=== PATIENT | female | born 1940 | race Caucasian/White ===

== ENCOUNTER 2017-09-17 10:33 | Emergency (ER) | payer MEDICARE ==
[2017-09-17 11:13] LABS: #Eosinphils 0.1 thou/uL (0.0-0.7); #Lymphocytes 2.6 thou/uL (1.20-3.40); #Monocytes 0.5 thou/uL (0.11-0.59); #Neutrophils 5.7 thou/uL (1.40-6.50); %Basophils 0.2 % (0.0-1.0); %Eosinophils 0.6 % (0.0-10.0); %Lymphocytes 29.6 % (21.0-51.0); %Monocytes 5.3 % (0.0-10.0); Red Blood Cell (RBC) Count 3.46 mill/uL (4.20-5.40); White Blood Cell (WBC) Count 8.8 thou/uL (4.8-10.8)
[2017-09-17 11:43] LABS: ALT (SGPT) 12 U/L (8-55); AST (SGOT) 23 U/L (5-34); Alkaline Phosphatase 121 U/L (40-150); Anion Gap 14 mmol/L (10-20); BUN (Urea Nitrogen) 8 mg/dL (9.8-20.1); Bilirubin, Total 0.5 mg/dL (0.2-1.2); Calc. Creatinine Clearance 0 mL/min (70-130); Calcium 8.8 mg/dL (7.8-10.44); Carbon Dioxide 23 mmol/L (23-31); Chloride 108 mmol/L (98-107); Estimated GFR-MDRD 64; Globulin 3.2 g/dL (2.4-3.5); Protein, Total 6.7 g/dL (6.0-8.3)
[2017-09-17] MEDS ORDERED: Carvedilol 6.25 MG TAB PO SCH (12:00)
--- NOTE | 2017-09-17 12:17 | CT ---
CT BRAIN WITHOUT CONTRAST: HISTORY: Headache. Hypertensive urgency. Hypokalemia. FINDINGS: No evidence of acute infarct, hemorrhage, midline shift, or abnormal extraaxial fluid collections is seen. The ventricular size is appropriate, and the basilar cisterns are patent. The bony calvariu m is intact. IMPRESSION: No CT evidence of acute intracranial process. POS: [facility]
[2017-09-17] MEDS ORDERED: Potassium Chloride 20 MEQ TAB ONE (13:13)
--- NOTE | 2017-10-16 12:17 | EKG ---
Test Reason : Blood Pressure : / mmHG Vent. Rate : 065 BPM Atrial Rate : 065 BPM P-R Int : 118 ms QRS Dur : 076 ms QT Int : 454 ms P-R-T Axes : -19 034 044 degrees QTc Int : 472 ms Normal sinus rhythm Prolonged QT Abnormal ECG Confirmed by GRICELDA ALONSO, CARY Coleman ([id number]), script editor NICOLE DAMON ([id number]) on 10/16/2017 12:17:02 PM Referred By: Confirmed By:CARY MADISON MD
== END 2017-09-17 13:35 | disposition home or self-care (01) ==
LOC: ERS 10:33
DX: E87.6 Hypokalemia (principal); E03.9 Hypothyroidism, unspecified; E78.5 Hyperlipidemia, unspecified; I10 Essential (primary) hypertension; I48.91 Unspecified atrial fibrillation; M10.9 Gout, unspecified
CPT/HCPCS: 70450; 80053; 85025; 93005

== ENCOUNTER 2017-11-26 11:19 | Inpatient (IN) | payer MEDICARE ==
[2017-11-26 11:46] LABS: #Eosinphils 0.1 thou/uL (0.0-0.7); #Lymphocytes 1.6 thou/uL (1.20-3.40); #Monocytes 0.3 thou/uL (0.11-0.59); %Basophils 0.5 % (0.0-1.0); %Eosinophils 1.2 % (0.0-10.0); %Lymphocytes 19.7 % (21.0-51.0); %Monocytes 4.2 % (0.0-10.0); %Neutrophils 74.5 % (42.0-75.0); Mean Corpuscular HGB CONC 32.2 g/dL (32.0-36.0); Mean Corpuscular Hemoglobin 31.3 pg (27.0-31.0); Mean Corpuscular Volume 97.2 fl (81.0-99.0); Mean Platelet Volume 8.7 fL (7.4-10.4); Platelet Count 174 thou/uL (130-400); RBC Distribution Width 13.9 % (11.5-14.5); Red Blood Cell (RBC) Count 3.19 mill/uL (4.20-5.40); White Blood Cell (WBC) Count 8.1 thou/uL (4.8-10.8)
--- NOTE | 2017-11-26 12:09 | RAD ---
SINGLE VIEW OF CHEST: Date: 11/26/17 COMPARISON: 12/19/16. HISTORY: Shortness of breath and chest pain. FINDINGS: Three views of the chest show a cardiomediastinal silhouette which is upper limits of normal in size with atherosclerotic calcifications in the aorta. There is no evidence of consolidation, mass, or ple ural effusion. Surgical clips are seen in the upper abdomen. IMPRESSION: No evidence of acute cardiopulmonary disease. POS: [facility]
[2017-11-26 12:13] LABS: ALT (SGPT) 17 U/L (8-55); AST (SGOT) 35 U/L (5-34); Albumin 3.6 g/dL (3.4-4.8); Alkaline Phosphatase 129 U/L (40-150); Anion Gap 14 mmol/L (10-20); BUN (Urea Nitrogen) 13 mg/dL (9.8-20.1); Bilirubin, Total 1.2 mg/dL (0.2-1.2); CK (CPK) 604 U/L (29-168); Calc. Creatinine Clearance 0 mL/min (70-130); Calcium 8.8 mg/dL (7.8-10.44); Carbon Dioxide 21 mmol/L (23-31); Chloride 108 mmol/L (98-107); Estimated GFR-MDRD 68; Globulin 3.1 g/dL (2.4-3.5); Glucose 96 mg/dL (83-110); Lipase 11 U/L (8-78); Potassium 3.3 mmol/L (3.5-5.1); Protein, Total 6.7 g/dL (6.0-8.3); Sodium 140 mmol/L (136-145)
[2017-11-26 12:18] LABS: Troponin I 0.021 ng/mL (< 0.028)
[2017-11-26 12:22] LABS: CKMB 7.6 ng/mL (0-6.6)
--- NOTE | 2017-11-26 13:17 | ULT ---
RIGHT LOWER EXTREMITY VENOUS DOPPLER WITH SPECTRAL ANALYSIS AND COLOR FLOW EVALUATION: Date: 11/26/18 HISTORY: Edema bilateral lower extremities, greater on the right, with associated calf tenderness in right low er extremity. TECHNIQUE: Deal scale, color flow, Doppler evaluation, and spectral analysis of the right lower extremity venous structures is performed with 2D imaging. The right lower extremity common femoral, superficial femor al, popliteal, and posterior tibial veins are imaged. FINDINGS: There is normal lumen compressibility, flow, and augmentation in the visualized deep venous structure s of the right lower extremity. IMPRESSION: No evidence of a deep venous thrombosis involving the visualized deep venous structures of the right lower extremity. POS: [facility]
--- NOTE | 2017-11-26 13:27 | CT ---
CT ARTERIOGRAM CHEST WITH IV CONTRAST AND 3D MIP IMAGING CT ABDOMEN AND PELVIS WITH IV AND ORAL CONTRAST: Date: 11/26/17 HISTORY: Dyspnea. Chest pain. Abdomen pain. FINDINGS: There is good contrast opacification of the pulmonary arteries and thoracic aorta with normal branchi ng of the great vessels. A small amount of bilateral pleural fluid present. Patchy areas of mild infi ltrate are present throughout each lung, more pronounced at the posterior aspect of each lung, sugges ting dependent atelectasis. Reactive appearing lymph nodes are scattered about the mediastinum. Calcified granulomata within the solid organs are consistent with healed granulomatous disease. Posto perative changes of the stomach are present, including absence of most or all of the stomach. There i s prominent calcification throughout the arterial structures. Postoperative changes of the anterior a bdominal wall are present within an anterior midline supraumbilical hernia containing abdominal fat a nd a small amount of colon. Degenerative and postoperative changes of the lumbar spine are apparent. Urinary bladder is unremarkable. There is no evidence of bowel obstruction. IMPRESSION: 1. No CT evidence of pulmonary embolus. 2. Small bilateral pleural effusions with dependent bibasilar atelectasis. 3. Anterior midline abdominal wall hernia containing abdominal fat and a small amount of nonobstruct ed colon. 4. Postoperative changes of the abdomen and pelvis. 5. Atherosclerosis. POS: [facility]
[2017-11-26] MEDS ORDERED: Furosemide 20 MG/2 ML VIAL ONE (14:31)
[2017-11-26] MEDS ORDERED: Acetaminophen 325 MG TAB PO PRN ×2 (15:54→18:23)
[2017-11-26] MEDS ORDERED: hydrALAZINE 20 MG/ML VIAL SLOW IVP PRN (16:15)
[2017-11-26] MEDS ORDERED: ISOVUE-370 76%-LOCM 1 ML ONE (16:41)
[2017-11-26] MEDS ORDERED: Ondansetron ODT 4 MG TAB PO PRN (18:23)
[2017-11-26 19:14] LABS: Troponin I 0.032 ng/mL (< 0.028)
[2017-11-26 19:16] LABS: CKMB 6.7 ng/mL (0-6.6); Critical Call CKMBM RESULT DECREASING
--- NOTE | 2017-11-26 20:17 | HP-2 ---
CODE STATUS: FULL. PRIMARY CARE PHYSICIAN: Katerina Velazco DO, [facility]. ATTENDING PHYSICIAN: Ines Lawrence DO RESIDENT: Avinash Carmen MD CHIEF COMPLAINT: Shortness of breath. HISTORY OF PRESENT ILLNESS: This is a 77-year-old female who presents with a 4- day history of shortness of breath. She states she has not been able to walk as far as she usually does. She was normally able to walk around her house with no problems, but now she sees herself sitting down a lot more often. She also notes she is waking up at night, often lying flat with a choking sensation. She also noted leg swelling and swelling in her abdomen that is new for her. She denies any chest pain or recent illness. She does note that she was taken off a water pill about 2 weeks ago. She has no nausea, vomiting, or diarrhea. No fevers, no chills, no coughs. She also denies any palpitations, but she does admit to some longstanding unsteadiness on her feet with recurrent falls. She has no other complaints at this time. In the ER, she was given 20 mg of IV Lasix. PAST MEDICAL HISTORY: CAD, CHF, AFib, gout, hypothyroidism, hyperlipidemia, hypertension, and alopecia. PAST SURGICAL HISTORY: Cholecystectomy, hysterectomy, feeding tube placement, and a bladder lift. ALLERGIES: No known drug allergies. MEDICATIONS: Include, 1. Levothyroxine 100 mcg. 2. Multaq 400 mg orally b.i.d. 3. Cetirizine 10 mg. 4. Pantoprazole 40 mg. 5. Sertraline 100 mg. 6. Allopurinol 300 mg. 7. Nitroglycerin 0.4 mg sublingual. 8. Trazodone 100 mg at bedtime. 9. Minoxidil for women 2% external solution. 10. Amlodipine besylate 5 mg orally. 11. Atorvastatin 20 mg. 12. Shell Low Dose aspirin 81 mg. 13. Naproxen 500 mg p.o. daily. FAMILY HISTORY: Noncontributory. SOCIAL HISTORY: No tobacco, alcohol, or drug use. REVIEW OF SYSTEMS: General: Denies any fevers, chills, weight changes, night sweats, or fatigue. Eyes. She does admit to blurry vision. No eye pain. ENT : Denies any nasal congestion, rhinorrhea, sore throat. Respiratory: No cough , no congestion. She does admit to shortness of breath. Cardiovascular: Denies any chest pain or palpitation. She does admit to edema and orthopnea. Gastrointestinal: She denies nausea, vomiting, diarrhea, constipation. She does admit to abdominal pressure like pain from being full. Genitourinary: Denies any incontinence or dysuria. Skin: Denies any rashes or lesions, but she does admit to more bruising than normal. Musculoskeletal: Denies pain, tenderness, stiffness, swelling. Neurologic: She admits to weakness and recurrent falls as longstanding. Psychiatric: She denies anxiety or depression. PHYSICAL EXAMINATION: VITAL SIGNS: Blood pressure 167/60, pulse 53, respirations 18, temperature max 98.3, pulse ox 95% on 2 liters. Current weight is 72 kg. GENERAL: Alert and oriented x4. Appropriately interactive. EYES: PERRLA. Conjunctivae within normal limits. ENT: Tympanic membranes pearly [place] without bulging or erythema. Nasal mucosa and oropharynx within normal limits. The patient does wear dentures. NECK: Supple. No lymphadenopathy, no thyromegaly. CARDIOVASCULAR: Regular rate and rhythm. No murmurs. Radial and pedal pulses are equal bilaterally. RESPIRATORY: Normal effort. No retractions. She did have crackles at bilateral lung bases. SKIN: Warm and dry. No cyanosis. No lesions. ABDOMEN: Soft. She was tender to palpation with a pressure-like sensation, but no sharp or acute pains. Bowel sounds are present x4 and she does admit to some distention of her abdomen. EXTREMITIES: No clubbing, cyanosis. She does have pitting edema up to the level of her shins. MUSCULOSKELETAL: Structure, tone, muscle strength, and range of motion within normal limits. NEUROLOGIC: No focal neurologic deficits. Sensation was within normal limits. Cranial nerves II-XII grossly intact. GCS was 15. PSYCHIATRIC: Appropriate. LABORATORY DATA: She had a white blood cell count of 8.1, platelet count of 174 , hemoglobin 10, hematocrit 31, MCV was 97.2, neutrophils 74.5%. CK was 604, CK -MB 7.6. Troponin I was 0.021. Sodium was 140, potassium 3.3, chloride 108, bicarbonate 21, BUN 13, creatinine 0.82, glucose 96, calcium was 8.8, total protein 6.7, albumin 3.6, total bilirubin was 1.2, AST was 35, ALT 17, alkaline phosphatase 129. Had a lipase of 11. BNP was 383. D-dimer was 1.22. She had an EKG that showed normal sinus rhythm with nonspecific T-wave abnormality. Chest x-ray showed nothing acute. She had a right lower extremity Doppler that showed no DVT. She had a CTA that showed no pulmonary embolism, small bilateral effusions, and an anterior midline abdominal hernia. ASSESSMENT AND PLAN: We have a 77-year-old female with: 1. Acute congestive heart failure exacerbation. We will give her IV Lasix. Strict I's and O's. Her last echo was in 12/2016, which showed an EF of 45%-50% , so we are going to repeat that. We will get a TSH and we will give her O2 supplementation as needed. 2. Acute Hypoxic Respiratory Failure- Secondary to #1. New O2 requirement. Will keep saturations above 90% with supplementation. 3. Atrial fibrillation. We will continue her home meds, put her on tele monitoring. 4. Hypertension. We will continue amlodipine and give her hydralazine as needed for systolic blood pressure greater than 170. 5. Hyperlipidemia. Continue her statin. 6. Gout. Continue allopurinol. 7. Hypothyroidism. We will check a TSH. Continue levothyroxine. 8. Prophylaxis will be Lovenox. DISPOSITION AND LENGTH OF HOSPITAL STAY: Tele and 2. Symptomatic medications will be provided. History and physical exam as well as management has been discussed with Dr. Lawrence. JEREMIAH
[2017-11-26] MEDS ORDERED: Melatonin 3 MG TAB PO SCH (21:00)
[2017-11-26] MEDS ORDERED: traZODone HCl 50 MG TAB PO SCH (21:00)
[2017-11-26] MEDS ORDERED: Loratadine 10 MG TAB PO PRN (21:11)
[2017-11-26] MEDS ORDERED: Nitroglycerin 0.4 MG TAB (25 Tab Bottle) SL PRN (21:11)
[2017-11-26] MEDS ORDERED: Naproxen 500 MG TAB PO PRN (21:11)
[2017-11-27] MEDS ORDERED: Levothyroxine Sodium 100 MCG TAB PO SCH (06:00)
[2017-11-27] MEDS: Furosemide 20 MG/2 ML VIAL SLOW IVP SCH ×2 (06:16→14:40)
[2017-11-27 06:18] LABS: Anion Gap 9 mmol/L (10-20); BUN (Urea Nitrogen) 12 mg/dL (9.8-20.1); Calc. Creatinine Clearance 66 mL/min (70-130); Calcium 8.3 mg/dL (7.8-10.44); Carbon Dioxide 26 mmol/L (23-31); Chloride 108 mmol/L (98-107); Estimated GFR-MDRD 70; Glucose 80 mg/dL (83-110); Potassium 3.1 mmol/L (3.5-5.1); Sodium 140 mmol/L (136-145)
--- NOTE | 2017-11-27 07:42 | PDOC.FM ---
- Subjective Subjective: Pt reports her sob has improved since yesterday and she was able to sleep well. Per nurse, pause on tele strip of 1.6 seconds overnight, pt asymptomatic. Otherwise denies NVDC, fever, chills. - Objective Vital Signs & Weight: Vital Signs (12 hours) Temp Pulse Resp BP BP Pulse Ox 11/27/17 04:00 97.9 F 58 L 18 142/64 H 95 11/27/17 00:00 98.1 F 67 18 166/74 H 96 11/26/17 20:00 98.3 F 66 18 159/70 H 94 L Weight Weight 68.492 kg I&O: 11/26/17 11/27/17 11/28/17 06:59 06:59 06:59 Intake Total 360 Output Total 1300 Balance -940 Result Diagrams: 11/26/17 11:37 11/27/17 05:26 Phys Exam - Physical Examination Constitutional: NAD HEENT: PERRLA, sclera anicteric Neck: no nodes, no JVD Respiratory: no wheezing, no rales, no rhonchi, clear to auscultation bilateral Cardiovascular: RRR, no significant murmur, no rub Gastrointestinal: soft, non-tender, positive bowel sounds Musculoskeletal: no edema, pulses present Neurological: non-focal, moves all 4 limbs Skin: no rash Dx/Plan (1) Hypokalemia Code(s): E87.6 - HYPOKALEMIA Status: Acute (2) Acute on chronic diastolic heart failure Code(s): I50.33 - ACUTE ON CHRONIC DIASTOLIC (CONGESTIVE) HEART FAILURE Status : Acute (3) HTN, goal below 140/90 Code(s): I10 - ESSENTIAL (PRIMARY) HYPERTENSION Status: Acute (4) Hypothyroidism (acquired) Code(s): E03.9 - HYPOTHYROIDISM, UNSPECIFIED Status: Chronic - Plan Plan: Pt improving with diuresis, will continue. Pt kidney function intact, daily BMP , will monitor Pt decreased weight, per nurse, Is/Os -950, continue to diurese, daily weights, monitor Is/Os Wean O2 maintain sats >90% HTN not at goal, diurese, monitor, consider increase htn meds if no improvement throughout day TSH below normal, consider OP med adjustment
[2017-11-27] MEDS ORDERED: Ferrous Sulfate 325 MG TAB PO SCH (08:00)
[2017-11-27] MEDS ORDERED: Potassium Chloride 20 MEQ TAB PO SCH (08:00)
[2017-11-27] MEDS ORDERED: Dronedarone HCl 400 MG TAB PO SCH (08:00)
[2017-11-27 08:21] VITALS: BMI 25.9
[2017-11-27] MEDS ORDERED: Amlodipine 5 MG TAB PO SCH (09:00)
[2017-11-27] MEDS ORDERED: Multivitamin W/ Minerals 1 TAB PO SCH (09:00)
[2017-11-27] MEDS ORDERED: Lisinopril 2.5 MG TAB PO SCH (09:00)
[2017-11-27] MEDS ORDERED: Enoxaparin Sodium 40 MG/0.4 ML SYRINGE SC SCH (09:00)
[2017-11-27] MEDS ORDERED: Allopurinol 300 MG TAB PO SCH (09:00)
[2017-11-27 09:38] LABS: CKMB 4.4 ng/mL (0-6.6); Troponin I 0.021 ng/mL (< 0.028)
[2017-11-27 12:04] VITALS: BP 124/62; TEMP 98.1
--- NOTE | 2017-11-27 19:39 | ADD-PRG ---
DATE OF SERVICE: 11/27/2017 Please see the note done by Dr. Wooten with which I concur. The patient was seen, evaluated, examine d and discussed with the residents at bedside. The 77-year-old was admitted for CHF exacerbation. H e was volume overloaded and is now on low dose Lasix .
[2017-11-27] MEDS ORDERED: Atorvastatin Calcium 20 MG TAB PO SCH (21:00)
--- NOTE | 2017-11-29 12:14 | DIS-2 ---
LOCATION: [facility] in [place], [place]. DATE OF ADMISSION: 11/26/2017 DATE OF DISCHARGE: 11/27/2017 RESIDENT PHYSICIAN: Dr. Selvin Wooten. ADMITTING ATTENDING: Dr. Angel Rice. DISCHARGE ATTENDING: Dr. Angel Rice. CONSULTATIONS: None. PROCEDURES: 1. Chest x-ray done on 11/26/2017 showed no evidence of acute cardiopulmonary disease. 2. CTA chest, abdomen, and pelvis done on 11/26/2017 showed no evidence of pulmonary embolism. Smal l bilateral pleural effusions with dependent bibasilar atelectasis. Anterior midline abdominal wall hernia containing abdominal fat and small amount of nonobstructed colon. Postoperative changes of th e abdomen and pelvis and atherosclerosis. 3. Vascular ultrasound done on 11/26/2017 showed no evidence of DVT involving the visualized deep ve nous structures of the right lower extremity. 4. Echocardiogram done on 11/26/2017 showed ejection fraction of 50-55%, grade 2/3 diastolic dysfunc tion, moderately dilated left atrium, mitral annular calcification, mild mitral regurgitation, mild t ricuspid regurgitation and elevated pulmonary artery pressure and mild pulmonic regurgitation. PRIMARY DIAGNOSES: 1. Acute on chronic diastolic heart failure. 2. Atrial fibrillation. 3. Hypothyroidism. 4. Depression. 5. Acute kidney injury. 6. Pulmonary hypertension. 7. Electrolyte abnormalities. DISCHARGE MEDICATIONS: 1. Allopurinol 300 mg p.o. daily. 2. Amlodipine 5 mg daily. 3. Aspirin 81 mg daily. 4. Atorvastatin 20 mg p.o. at bedtime. 5. Cetirizine 10 mg p.o. p.r.n. 6. Multaq 400 mg p.o. b.i.d. with meals. 7. Ferrous sulfate 65 mg p.o. daily. 8. Levothyroxine 100 mcg p.o. daily. 9. Lisinopril 2.5 mg p.o. daily. 10. Melatonin 3 mg p.o. at bedtime. 11. Multivitamin 1 tab p.o. daily. 12. Naproxen 500 mg p.o. b.i.d. 13. Nitroglycerin 0.4 mg sublingual every 5 minutes p.r.n. 14. Protonix 40 mg p.o. daily. 15. Potassium chloride 20 mEq p.o. daily. 16. Sertraline 100 mg p.o. daily. 17. Trazodone 100 mg p.o. at bedtime. DISCONTINUED MEDICATIONS: None. HISTORY OF PRESENT ILLNESS AND HOSPITAL COURSE: The patient is a 77-year-old female with past histor y of diastolic heart failure who came in with a 4-day history of shortness of breath and increasing s hortness of breath with exertion. She also noticed that she is frequently waking up at night and has associated orthopnea or had associated orthopnea prior to her presentation to the ER. On initial en counter, patient denied chest pain. She does note that she was taken off of her Lasix approximately 2 weeks prior to admission. Denied nausea, vomiting, diarrhea, fever, chills, and cough as well as p alpitations. Although, the patient has a history of intermittent atrial fibrillation. Patient was d etermined to be a poor candidate for anticoagulation, hence where she was not discharged on anticoagu lation. PERTINENT LABORATORY DATA: Patient's blood pressure on admission was 192/77. The patient was afebri le throughout her hospital stay and initially presented with an oxygen saturation of 80 which improve d with the use of Lasix. Initial O2 sat of 80% improved to 95% on room air upon discharge. Laborato ry elias, patient had no elevated white count; on initial presentation, white count was 8.1. Patient was slightly anemic with hemoglobin of 10, hematocrit of 31.0, and an MCV of 97.2. Basic metabolic p ann revealed hypokalemia at 3.1. GFR was estimated at 70 and BUN and creatinine were 12 and 0.8 res pectively. Initial CK-MB was 7.6, which subsequently trended down to 6.7. Troponin I was 0.021, 0.0 32 and 0.021 at 0000, 0300 and 0600 hours respectively. Brain natriuretic peptide on initial present ation was found to be 383.8. Patient's TSH was also noted to be low at 0.304. Lipase was normal at 11. Overall, patient had an uncomplicated hospital course that was started back on her p.o. Lasix with im provement of her respiratory status as well as her overall volume status. Given the patient was star matthew back on Lasix, she was also continued and sent home on potassium supplementation with instruction to follow up outpatient closely with a repeat basic metabolic panel in 7-10 days with her primary ca re physician. DISCHARGE INSTRUCTIONS: 1. Patient left the hospital in stable condition. 2. Location: Home. 3. Diet: Fluid-restrictive diet, less than 2 liters per day, low-sodium diet less than 2 grams per day and heart-healthy diet. 4. Followup: With [facility] on 12/13/2017 and follow up with Dr. Juan baker at [facility] in 7-10 days following discharge.
== END 2017-11-27 15:15 | disposition home or self-care (01) | DRG 291 ==
LOC: ERS 11:19 → 2NO 13:30
PROVIDERS: ADMIT Family Medicine; ATTEND Family Medicine
DX: I11.0 Hypertensive heart disease with heart failure (principal); J96.01 Acute respiratory failure with hypoxia; I48.91 Unspecified atrial fibrillation; I50.23 Acute on chronic systolic (congestive) heart failure; I25.10 Atherosclerotic heart disease of native coronary artery without angina pectoris; M10.9 Gout, unspecified; E03.9 Hypothyroidism, unspecified; E78.5 Hyperlipidemia, unspecified; I10 Essential (primary) hypertension; F32.9 Major depressive disorder, single episode, unspecified; E87.6 Hypokalemia
CPT/HCPCS: 36415; 71045; 71275; 74177; 80048; 80053; 82553; 83690; 83880; 84443; 84484; 85025; 85379; 93005; 93306; 93798; 96374; J1650; J1940

== ENCOUNTER 2018-04-28 05:55 | Day surgery (SDC) | payer MEDICARE ==
[2018-04-27 14:49] VITALS: BMI 24.7
[2018-04-28 07:52] LABS: #Eosinphils 0.1 thou/uL (0.0-0.7); #Lymphocytes 2.7 thou/uL (1.20-3.40); #Monocytes 0.5 thou/uL (0.11-0.59); #Neutrophils 6.4 thou/uL (1.40-6.50); %Basophils 0.3 % (0.0-1.0); %Eosinophils 1.2 % (0.0-10.0); %Lymphocytes 27.8 % (21.0-51.0); %Monocytes 4.8 % (0.0-10.0); Hemoglobin 11.8 g/dL (12.0-16.0); Mean Corpuscular HGB CONC 33.6 g/dL (32.0-36.0); Mean Corpuscular Hemoglobin 32.5 pg (27.0-31.0); Mean Corpuscular Volume 96.7 fL (78.0-98.0); Platelet Count 166 thou/uL (130-400); RBC Distribution Width 12.4 % (11.5-14.5); Red Blood Cell (RBC) Count 3.65 mill/uL (4.20-5.40); White Blood Cell (WBC) Count 9.7 thou/uL (4.8-10.8)
[2018-04-28 08:02] LABS: INR-International Normal Ratio 1.5; PTT 32.8 SEC (22.9-36.1); Prothrombin Time 18.1 SEC (12.0-14.7)
[2018-04-28 08:09] LABS: Anion Gap 14 mmol/L (10-20); BUN (Urea Nitrogen) 11 mg/dL (9.8-20.1); Calc. Creatinine Clearance 46 mL/min (70-130); Calcium 8.7 mg/dL (7.8-10.44); Carbon Dioxide 26 mmol/L (23-31); Chloride 107 mmol/L (98-107); Estimated GFR-MDRD 52; Glucose 95 mg/dL (83-110); Potassium 4.1 mmol/L (3.5-5.1); Sodium 143 mmol/L (136-145)
[2018-04-28] MEDS ORDERED: Lidocaine 1% PF 5 ML VIAL ONE (08:19)
[2018-04-28] MEDS ORDERED: PROPOFOL 20 ML ONE (08:19)
--- NOTE | 2018-04-28 13:17 | ECHO ---
TRANSESOPHAGEAL ECHOCARDIOGRAM: DATE OF PROCEDURE: 04/28/18 INDICATION: 77-year-old woman with paroxysmal atrial fibrillation and status post Watchman device. DESCRIPTION OF PROCEDURE: The patient was taken to the PACU. The patient was sedated by anesthesiology. A transesophageal probe was placed in the distal esophagus and stomach. Echocardiographic images were obtained. The transesophageal probe was removed. FINDINGS: 1. Normal left ventricular systolic function. 2. Normal mitral and aortic valves. 3. Mild mitral regurgitation. 4. Mild tricuspid regurgitation. 5. The Watchman device is well positioned with two small leaks noted around the device, one anterior and the other posterior, measuring up to 2.0 mm. 6. Atherosclerotic debris in the descending aorta. IMPRESSION: Two small leaks noted around the Watchman device up to 2.0 mm, one posterior and the other anterior. MTDD
== END 2018-04-28 10:24 | disposition home or self-care (01) ==
LOC: CCL 05:55
PROVIDERS: ATTEND Internal Medicine Cardiovascular Disease
DX: I48.0 Paroxysmal atrial fibrillation (principal); I10 Essential (primary) hypertension; E78.5 Hyperlipidemia, unspecified; I08.1 Rheumatic disorders of both mitral and tricuspid valves; I42.9 Cardiomyopathy, unspecified; F32.9 Major depressive disorder, single episode, unspecified; G47.00 Insomnia, unspecified
CPT/HCPCS: 36415; 80048; 85025; 85610; 85730; 93005; 93010; 93312; J2001; J2704

== ENCOUNTER → 2018-07-12 | Day surgery (SDC) | payer MEDICARE ==
[2018-07-08 10:22] VITALS: BMI 24.5
[~2018-07-12] MED LIST: Atropine Sulfate 1 mg/10 ml Syringe ONE; Lidocaine 1% PF 5 ML VIAL ONE; PROPOFOL 20 ML ONE
[2018-07-12 07:17] LABS: #Eosinphils 0.1 thou/uL (0.0-0.7); #Monocytes 0.5 thou/uL (0.11-0.59); #Neutrophils 4.4 thou/uL (1.40-6.50); %Basophils 0.1 % (0.0-1.0); Hemoglobin 11.9 g/dL (12.0-16.0); Mean Corpuscular HGB CONC 34.9 g/dL (32.0-36.0); Mean Corpuscular Hemoglobin 32.2 pg (27.0-31.0); Mean Corpuscular Volume 92.4 fL (78.0-98.0); Mean Platelet Volume 7.9 fL (7.4-10.4); Platelet Count 153 thou/uL (130-400); RBC Distribution Width 12.7 % (11.5-14.5); Red Blood Cell (RBC) Count 3.68 mill/uL (4.20-5.40)
[2018-07-12 07:21] LABS: INR-International Normal Ratio 1.6; PTT 30.5 SEC (22.9-36.1); Prothrombin Time 19.1 SEC (12.0-14.7)
[2018-07-12 07:35] LABS: Anion Gap 14 mmol/L (10-20); BUN (Urea Nitrogen) 14 mg/dL (9.8-20.1); Calc. Creatinine Clearance 46 mL/min (70-130); Calcium 9.1 mg/dL (7.8-10.44); Carbon Dioxide 21 mmol/L (23-31); Chloride 103 mmol/L (98-107); Estimated GFR-MDRD 56; Glucose 105 mg/dL (83-110); Potassium 4.2 mmol/L (3.5-5.1); Sodium 134 mmol/L (136-145)
--- NOTE | 2018-07-12 08:58 | EKG ---
Test Reason : PREOP NELLY Blood Pressure : / mmHG Vent. Rate : 053 BPM Atrial Rate : 075 BPM P-R Int : 000 ms QRS Dur : 080 ms QT Int : 424 ms P-R-T Axes : 000 033 027 degrees QTc Int : 397 ms Atrial fibrillation with slow ventricular response ST abnormality, possible digitalis effect Abnormal ECG When compared with ECG of 28-APR-2018 07:20, Nonspecific T wave abnormality, improved in Inferior leads T wave inversion no longer evident in Lateral leads Confirmed by DR. Stacey SUTTON (3) on 07/12/2018 8:57:52 AM Referred By: TAB Confirmed By:DR. Stacey SUTTON
--- NOTE | 2018-07-12 15:42 | ECHO ---
This a 78-year-old woman with permanent atrial fibrillation and a Watchman device. The patient was taken to the PACU, the patient is sedated by anesthesiology. A transesophageal probe was placed in the distal esophagus and stomach. Echocardiographic images were obtained. The transeso phageal probe was removed. FINDINGS: 1. Normal left ventricular systolic function. 2. Moderate left atrial enlargement. 3. Mild to moderate mitral regurgitation. 4. Mild tricuspid regurgitation. 5. The Watchman device is well positioned in the left atrial appendage . There are two leaks noted. one of approximately 3 mm and 1 mm around the device. 6. Atherosclerotic debris in the descending aorta. IMPRESSION: Two leaks noted around the Watchman device.
== END ==
LOC: CCL 06:07
PROVIDERS: ATTEND Internal Medicine Cardiovascular Disease
PROC: B24BZZ4 Ultrasonography of Heart with Aorta, Transesophageal (ICD-10-PCS; principal; 2018-07-12)
DX: I48.1 Persistent atrial fibrillation (principal); I34.0 Nonrheumatic mitral (valve) insufficiency; I36.1 Nonrheumatic tricuspid (valve) insufficiency; I70.0 Atherosclerosis of aorta; Z79.01 Long term (current) use of anticoagulants; Z79.82 Long term (current) use of aspirin; Z79.899 Other long term (current) drug therapy; Z95.818 Presence of other cardiac implants and grafts
CPT/HCPCS: 80048; 85025; 85610; 85730; 93005; 93010; 93312; J0461; J2001; J2704

== ENCOUNTER 2018-08-16 16:23 | Emergency (ER) | payer MEDICARE ==
[2018-08-16 17:03] LABS: Bilirubin Negative (Negative); Blood, Urine Negative (Negative); Clarity CLOUDY (Clear); Glucose, Urine (Dipstick) Negative (Negative); Leukocyte Small (Negative); Nitrite Positive (Negative); Protein, Urine (Dipstick) Negative (Neg-Trace); Specific Gravity, Urine 1.009 (1.002-1.036); Urobilinogen 0.2 mg/dL (0.2-1.0); pH, Urine 5.5 (5.0-9.0)
[2018-08-16 17:10] LABS: Hyaline Casts/LPF 0-3 HYALINE CAST LPF (0-3 Hyaline); Squamous Epithelial 0-3 HPF (0-3)
[2018-08-16 17:13] LABS: #Eosinphils 0.1 thou/uL (0.0-0.7); #Lymphocytes 3.1 thou/uL (1.20-3.40); #Monocytes 0.6 thou/uL (0.11-0.59); #Neutrophils 4.2 thou/uL (1.40-6.50); %Basophils 0.4 % (0.0-1.0); %Lymphocytes 38.6 % (21.0-51.0); %Neutrophils 52.9 % (42.0-75.0); Hemoglobin 11.8 g/dL (12.0-16.0); Mean Corpuscular HGB CONC 32.9 g/dL (32.0-36.0); Mean Corpuscular Hemoglobin 32.2 pg (27.0-31.0); Mean Corpuscular Volume 97.7 fL (78.0-98.0); Mean Platelet Volume 7.8 fL (7.4-10.4); Platelet Count 180 thou/uL (130-400); RBC Distribution Width 12.8 % (11.5-14.5); Red Blood Cell (RBC) Count 3.66 mill/uL (4.20-5.40)
[2018-08-16 17:19] LABS: Bacteria/HPF 1+ HPF (None Seen); RBC/HPF 0-3 HPF (0-3)
[2018-08-16 17:37] LABS: ALT (SGPT) 13 U/L (8-55); AST (SGOT) 23 U/L (5-34); Alkaline Phosphatase 106 U/L (40-150); Anion Gap 11 mmol/L (10-20); BUN (Urea Nitrogen) 15 mg/dL (9.8-20.1); Bilirubin, Total 0.6 mg/dL (0.2-1.2); CK (CPK) 158 U/L (29-168); Calc. Creatinine Clearance 0 mL/min (70-130); Calcium 8.9 mg/dL (7.8-10.44); Carbon Dioxide 26 mmol/L (23-31); Chloride 109 mmol/L (98-107); Estimated GFR-MDRD 55; Glucose 102 mg/dL (83-110); Lipase 30 U/L (8-78); Potassium 4.6 mmol/L (3.5-5.1); Sodium 141 mmol/L (136-145)
[2018-08-16 17:39] LABS: CKMB 1.9 ng/mL (0-6.6); Troponin I Less than 0.010 ng/mL (< 0.028)
--- NOTE | 2018-08-16 18:29 | RAD ---
PORTABLE CHEST 1 VIEW: Date: 08/16/18 Time: 1649 hours HISTORY: Weakness. FINDINGS: Comparison made with exam of 11/26/17. The heart size is upper limits of normal. No lobar consolidation, pneumothoraces, harpal pulmonary ratna ma, or pleural effusions are seen. IMPRESSION: No acute process. POS: [facility]
[2018-08-16 20:31] LABS: Troponin I Less than 0.010 ng/mL (< 0.028)
[2018-08-16] MEDS ORDERED: Nitrofurantoin Macrocrystal 50 MG CAP PO SCH (21:00)
== END 2018-08-16 21:28 | disposition home or self-care (01) ==
LOC: ERS 16:23
DX: N39.0 Urinary tract infection, site not specified (principal); I25.10 Atherosclerotic heart disease of native coronary artery without angina pectoris; I48.91 Unspecified atrial fibrillation; E03.9 Hypothyroidism, unspecified; E78.5 Hyperlipidemia, unspecified; I11.0 Hypertensive heart disease with heart failure; I50.9 Heart failure, unspecified; Z79.82 Long term (current) use of aspirin; Z79.899 Other long term (current) drug therapy
CPT/HCPCS: 36415; 71045; 80053; 80162; 81003; 81015; 82550; 82553; 83690; 84484; 85025; 87077; 87086; 87186; 93005

== ENCOUNTER 2018-08-23 13:06 | Emergency (ER) | payer MEDICARE ==
[2018-08-23 14:06] LABS: #Eosinphils 0.1 thou/uL (0.0-0.7); #Monocytes 0.5 thou/uL (0.11-0.59); #Neutrophils 4.9 thou/uL (1.40-6.50); %Basophils 0.6 % (0.0-1.0); %Eosinophils 1.2 % (0.0-10.0); %Lymphocytes 27.1 % (21.0-51.0); %Monocytes 6.2 % (0.0-10.0); %Neutrophils 64.9 % (42.0-75.0); Hemoglobin 12.3 g/dL (12.0-16.0); Mean Corpuscular HGB CONC 32.3 g/dL (32.0-36.0); Mean Corpuscular Hemoglobin 31.6 pg (27.0-31.0); Mean Corpuscular Volume 97.7 fL (78.0-98.0); Platelet Count 185 thou/uL (130-400); RBC Distribution Width 13.3 % (11.5-14.5); White Blood Cell (WBC) Count 7.5 thou/uL (4.8-10.8)
[2018-08-23 14:13] LABS: INR-International Normal Ratio 1.5; Prothrombin Time 17.8 SEC (12.0-14.7)
[2018-08-23 14:14] LABS: PTT 34.7 SEC (22.9-36.1)
[2018-08-23] MEDS ORDERED: Lorazepam 2 MG/ML VIAL ONE (14:15)
[2018-08-23 14:25] LABS: ALT (SGPT) 13 U/L (8-55); AST (SGOT) 30 U/L (5-34); Albumin 3.9 g/dL (3.4-4.8); Alkaline Phosphatase 97 U/L (40-150); Anion Gap 14 mmol/L (10-20); BUN (Urea Nitrogen) 11 mg/dL (9.8-20.1); Bilirubin, Total 0.7 mg/dL (0.2-1.2); CK (CPK) 272 U/L (29-168); Calc. Creatinine Clearance 0 mL/min (70-130); Calcium 9.3 mg/dL (7.8-10.44); Carbon Dioxide 22 mmol/L (23-31); Chloride 110 mmol/L (98-107); Estimated GFR-MDRD 46; Globulin 3.1 g/dL (2.4-3.5); Glucose 98 mg/dL (83-110); Lipase 20 U/L (8-78); Potassium 4.6 mmol/L (3.5-5.1); Sodium 141 mmol/L (136-145)
[2018-08-23 14:30] LABS: Troponin I Less than 0.010 ng/mL (< 0.028)
[2018-08-23 14:32] LABS: CKMB 7.3 ng/mL (0-6.6)
--- NOTE | 2018-08-23 15:01 | CT ---
CT BRAIN: Date: 08-23-18 Provided Clinical History: Dizziness, light headedness, loss of balance. FINDINGS: Comparison 09-17-17. The ventricular system appears normal in size and morphology. There is no evidence for intracranial h emorrhage or mass effect. The extracranial soft tissues and osseous structures demonstrate no acute a bnormality. IMPRESSION: No evidence for intracranial hemorrhage or mass effect. POS: [facility]
[2018-08-23 15:03] LABS: Bilirubin Small (Negative); Blood, Urine Negative (Negative); Clarity CLEAR (Clear); Glucose, Urine (Dipstick) Negative (Negative); Leukocyte Small (Negative); Nitrite Negative (Negative); Protein, Urine (Dipstick) Negative (Neg-Trace); Specific Gravity, Urine 1.017 (1.002-1.036); Urobilinogen 0.2 mg/dL (0.2-1.0)
[2018-08-23 15:06] LABS: Bacteria/HPF None Seen HPF (None Seen); Hyaline Casts/LPF 0-3 HYALINE CAST LPF (0-3 Hyaline); RBC/HPF 0-3 HPF (0-3); Squamous Epithelial 0-3 HPF (0-3)
--- NOTE | 2018-08-23 15:08 | RAD ---
CHEST ONE VIEW: History: 78-year-old female with history of generalized weakness and multiple falls. Comparison: 08-16-18 FINDINGS: Monitor leads overlie the chest. Surgical clips in the left upper abdomen. Heart size is within vanda l limits. The lungs are clear. No pneumonia, edema, pleural effusion or other acute process. IMPRESSION: Stable appearing chest. Atherosclerosis of the aorta. No new process. POS: [facility]
--- NOTE | 2018-08-23 15:23 | CT ---
CT CERVICAL SPINE: Date: 08-23-18 Provided Clinical History: Injury. FINDINGS: No evidence for fracture or traumatic subluxation. Degenerative changes are seen. No prevertebral sof t tissue swelling apparent. Visualized lung apices are free of significant opacity. IMPRESSION: No evidence for fracture or traumatic subluxation. POS: [facility]
[2018-08-23 17:33] LABS: Troponin I Less than 0.010 ng/mL (< 0.028)
[2018-08-23 17:34] LABS: CKMB 6.7 ng/mL (0-6.6); Critical Call CKMBM RESULT DECREASING
== END 2018-08-23 17:36 | disposition home or self-care (01) ==
LOC: ERS 13:06
DX: R53.1 Weakness (principal); F41.9 Anxiety disorder, unspecified; N39.0 Urinary tract infection, site not specified; I25.10 Atherosclerotic heart disease of native coronary artery without angina pectoris; I48.91 Unspecified atrial fibrillation; M10.9 Gout, unspecified; E03.9 Hypothyroidism, unspecified; E78.5 Hyperlipidemia, unspecified; I11.0 Hypertensive heart disease with heart failure; I50.9 Heart failure, unspecified; Z79.899 Other long term (current) drug therapy; Z79.82 Long term (current) use of aspirin
CPT/HCPCS: 36415; 51701; 70450; 71045; 72125; 80053; 81003; 81015; 82553; 83605; 83690; 83735; 83880; 84484; 85025; 85610; 85730; 87040; 87086; 93005; 96361; 96374; A4353; J2060

== ENCOUNTER 2019-04-26 08:54 | Day surgery (SDC) | payer MEDICARE ==
[2019-04-25 16:31] VITALS: BMI 23.0
[2019-04-26 09:45] LABS: #Eosinphils 0.1 thou/uL (0.0-0.7); #Lymphocytes 2.6 thou/uL (1.20-3.40); #Monocytes 0.6 thou/uL (0.11-0.59); #Neutrophils 7.3 thou/uL (1.40-6.50); %Basophils 0.2 % (0.0-1.0); %Eosinophils 1.1 % (0.0-10.0); %Lymphocytes 24.4 % (21.0-51.0); %Monocytes 5.7 % (0.0-10.0); %Neutrophils 68.6 % (42.0-75.0); Hemoglobin 10.6 g/dL (12.0-16.0); Mean Corpuscular HGB CONC 33.8 g/dL (32.0-36.0); Mean Corpuscular Hemoglobin 32.1 pg (27.0-31.0); Mean Corpuscular Volume 94.8 fL (78.0-98.0); Mean Platelet Volume 8.5 fL (7.4-10.4); Platelet Count 215 thou/uL (130-400); RBC Distribution Width 13.6 % (11.5-14.5); White Blood Cell (WBC) Count 10.6 thou/uL (4.8-10.8)
[2019-04-26 09:54] LABS: INR-International Normal Ratio 1.8; PTT 34.1 SEC (22.9-36.1); Prothrombin Time 20.5 SEC (12.0-14.7)
[2019-04-26 10:19] LABS: BUN (Urea Nitrogen) 29 mg/dL (9.8-20.1); Calc. Creatinine Clearance 33 mL/min (70-130); Carbon Dioxide 20 mmol/L (23-31); Chloride 105 mmol/L (98-107); Estimated GFR-MDRD 38; Glucose 98 mg/dL (83-110); Potassium 4.6 mmol/L (3.5-5.1); Sodium 138 mmol/L (136-145)
[2019-04-26 10:29] LABS: Anion Gap 18 mmol/L (10-20)
[2019-04-26] MEDS ORDERED: Phenylephrine HCL 10 MG/ML VIAL ONE (11:19)
[2019-04-26] MEDS ORDERED: Clopidogrel Bisulfate 300 MG TAB ONE (11:19)
[2019-04-26] MEDS ORDERED: PROPOFOL 0 ML ONE (11:19)
[2019-04-26] MEDS ORDERED: PROPOFOL 40 ML ONE (12:03)
[2019-04-26] MEDS ORDERED: PROPOFOL 200 MG/20 ML VIAL ONE (14:59)
--- NOTE | 2019-04-27 10:25 | HP ---
HISTORY OF PRESENT ILLNESS: Ms. Johnson is a very pleasant 78-year-old woman, known to our practice for history of persistent atrial fibrillation, refractory to Multaq. She has an elevated CHADS-VASc score of 6 and had chronic anemia issues while anticoagulated prompting Watchman placement on 03/18/2018. Followup NELLY showed two hamlet-device leaks and was scheduled for a coil closure, which needed to be rescheduled. She ultimately underwent coil closure on 12/30/[address] Guerrero. Her initial re-evaluation with NELLY, she canceled and she is here for once again rescheduled NELLY to evaluates her closure device. She reports that she is in a good state of health. She is not having any current bleeding issues on anticoagulation. She denies any cardiac concerns or complaints. She has not had any febrile or infectious illnesses recently. Remains in atrial fibrillation, which she is asymptomatic and rate controlled. REVIEW OF SYSTEMS: A 12-point review of systems is conducted, is negative except that listed above in the HPI. PAST MEDICAL HISTORY: 1. Persistent atrial fibrillation, refractory to Multaq, which has since been discontinued in favor of rate control. 2. CHADS-VASc score of 6, unable to tolerate oral anticoagulation. a. Status post Watchman on 03/18/2018. b. NELLY on 07/12/2018, showed two hamlet-device leaks. c. Status post coil closure in December 2018. 3. Chronic systolic heart failure with nonischemic cardiomyopathy. 4. Echocardiogram with recovered ejection fraction of 50% to 55% in November 2017. 5. Coronary artery disease risk factors includes hypertension and hyperlipidemia. 6. Myocardial infarction. 7. Hypothyroidism. 8. Depression. 9. Insomnia. ALLERGIES: NO KNOWN DRUG ALLERGIES. MEDICATIONS: Include; 1. Amlodipine 5 mg daily. 2. Pantoprazole 40 mg daily. 3. Furosemide 20 mg daily. 4. Lisinopril 2.5 mg daily. 5. Potassium 20 mEq daily. 6. Metoprolol 50 mg b.i.d. 7. Sertraline 100 mg daily. 8. Allopurinol 3 mg daily. 9. Levothyroxine 75 mcg daily. 10. Atorvastatin 20 mg q.p.m. 11. Aspirin 81 mg daily. 12. Trazodone q.p.m. 13. Iron daily. 14. Eliquis 5 mg b.i.d. 15. Digoxin 125 mcg daily. SOCIAL HISTORY: Strong family support. Denies alcohol, tobacco, or illicit drug use. FAMILY HISTORY: Negative for sudden cardiac or early-onset coronary artery disease. PHYSICAL EXAMINATION: VITAL SIGNS: Recent vital signs; blood pressure 138/66, heart rate is 68, oxygen is 99% on room air, and respirations are 14. GENERAL: The patient is alert and oriented. Speech is clear. Affect is appropriate. She is in no apparent distress. She is normocephalic and atraumatic. HEENT: Sclerae anicteric. EOMs are intact. Oral mucosa is moist and pink with adequate dentition. NECK: Supple without jugular venous distention. LUNGS: Clear to auscultation bilaterally without wheezes, crackles, or rhonchi. RESPIRATIONS: Even and unlabored. HEART: Rate is irregularly irregular. PMI is nondisplaced. ABDOMEN: Obese, soft, and nontender without palpable masses. Hepatojugular reflux is negative. EXTREMITIES: Warm and dry to touch without clubbing, cyanosis, or edema. NEUROLOGIC: Grossly intact and nonfocal. Gait is stable. DATABASE: EKG shows rate controlled atrial fibrillation with a narrow QRS. IMPRESSION: 1. Persistent atrial fibrillation, refractory to Multaq, currently rate controlled off antiarrhythmic therapy and asymptomatic. 2. CHADS-VASc score of 6. 3. Watchman left atrial appendage closure on 03/18/2018 with hamlet-device leaks, status post Quill closure in December 2018. We will continue the Eliquis therapy. 4. Chronic fatigue. RECOMMENDATIONS: Ms. Johnson recently underwent coil closure on 12/30/2018. We discussed re-evaluation of her left atrial appendage following this recent coiling including risks, benefits, and alternatives. She voices understanding and wishes to proceed as scheduled today. We will arrange for routine outpatient followup pending the results of this NELLY today. Job ID: [id number] MTDD
--- NOTE | 2019-05-27 15:57 | ECHO ---
REFERRING PHYSICIAN: Dr. Cervantes REASON FOR PROCEDURE: The patient is a 78-year-old female with history of atrial fibrillation, nonrate control status post Watchman procedure on 03/18/18. NELLY on 07/12/18 showed peridevice leaks. A closure performed in December 2018. She is here now for repeat NELLY to evaluate patency of Watchman closure. PROCEDURE: The patient received propofol by Anesthesia specialist. After adequate level of sedation achieved, a standard transesophageal echocardiogram probe was passed into the esophagus without diff iculty. Patient tolerated the procedure well, no complications noted. RESULTS: Left ventricle appears to have preserved systolic function. The left atrium is mild to moderately enl arged. The Watchman device appears to be adequately seated. The left atrial appendage, there is adequ ate opacification noted behind the Watchman device suggestive of clot burden and no blood circulation . No evidence of leak noted adjacent to the Watchman device. There aortic valve is seen. Moderate lef t atrial enlargement. Mild mitral regurgitation noted. The interatrial septum is free of defect. Pulm onary valve appears to be normal. Pericardial space is without effusion. No septal defects identified . Visualized portions of the ascending and descending aorta without aneurysm, dissection or atheroma. CONCLUSION: 1. Adequately seated Watchman device in the left atrial appendage which is sufficiently sealing the left atrial appendage with no residual flow. 2. At least moderate left atrial enlargement. 3. Mild mitral regurgitation. 4. Normal LV systolic function. 5. No other valvular heart disease. PLAN: Consider switching to aspirin for anticoagulation.
== END 2019-04-26 14:38 | disposition home or self-care (01) ==
LOC: SDC 08:54
PROVIDERS: ATTEND Internal Medicine Cardiovascular Disease
PROC: B24BZZ4 Ultrasonography of Heart with Aorta, Transesophageal (ICD-10-PCS; principal; 2019-04-26)
DX: I48.1 Persistent atrial fibrillation (principal); I34.0 Nonrheumatic mitral (valve) insufficiency; I42.9 Cardiomyopathy, unspecified; I11.0 Hypertensive heart disease with heart failure; I50.22 Chronic systolic (congestive) heart failure; E78.5 Hyperlipidemia, unspecified; I25.2 Old myocardial infarction; E03.9 Hypothyroidism, unspecified; F32.9 Major depressive disorder, single episode, unspecified; G47.00 Insomnia, unspecified; Z79.01 Long term (current) use of anticoagulants; Z79.1 Long term (current) use of non-steroidal anti-inflammatories (NSAID); Z79.82 Long term (current) use of aspirin; Z79.899 Other long term (current) drug therapy; Z95.818 Presence of other cardiac implants and grafts
CPT/HCPCS: 36415; 80048; 85025; 85610; 85730; 93005; 93010; 93312; J2370; J2704

== ENCOUNTER 2019-11-29 18:19 | Observation (INO) | payer MEDICARE ==
[~2019-11-29 18:19] MED LIST changes: -Atropine Sulfate 1 mg/10 ml Syringe ONE; +Iopamidol-370 76% 500 ML 1 ML ONE; -Lidocaine 1% PF 5 ML VIAL ONE; -PROPOFOL 20 ML ONE
[2019-11-29 18:51] LABS: #Eosinphils 0.1 thou/uL (0.0-0.7); #Monocytes 0.4 thou/uL (0.11-0.59); #Neutrophils 6.5 thou/uL (1.40-6.50); %Basophils 0.1 % (0.0-1.0); %Eosinophils 0.9 % (0.0-10.0); %Lymphocytes 21.8 % (21.0-51.0); %Monocytes 4.6 % (0.0-10.0); %Neutrophils 72.7 % (42.0-75.0); Hemoglobin 10.5 g/dL (12.0-16.0); Mean Corpuscular HGB CONC 31.9 g/dL (32.0-36.0); Mean Corpuscular Hemoglobin 28.1 pg (27.0-31.0); Mean Corpuscular Volume 88.3 fL (78.0-98.0); Mean Platelet Volume 8.1 fL (7.4-10.4); Platelet Count 217 thou/uL (130-400); RBC Distribution Width 14.9 % (11.5-14.5); Red Blood Cell (RBC) Count 3.73 mill/uL (4.20-5.40)
--- NOTE | 2019-11-29 18:55 | RAD ---
EXAM: Chest PA and lateral: HISTORY: Chest pain. Shortness of breath. Bilateral lower extremity swelling, x3 days COMPARISON: 08/23/2018 FINDINGS: Metallic coil projects over the left heart border. Heart: Normal cardiac silhouette Aorta: Atherosclerosis of the aortic knob Pulmonary vessels: Normal Costophrenic angles: Blunting of the right costophrenic angle due to small effusion. Lungs: Chronic lung parenchymal changes with hyperinflation. Pneumothorax: No pneumothorax Osseous structures: No osseous abnormalities IMPRESSION: Small right-sided pleural effusion.
[2019-11-29 19:14] LABS: ALT (SGPT) 17 U/L (8-55); AST (SGOT) 31 U/L (5-34); Albumin 3.6 g/dL (3.4-4.8); Alkaline Phosphatase 138 U/L (40-110); Anion Gap 13 mmol/L (10-20); BUN (Urea Nitrogen) 9 mg/dL (9.8-20.1); Bilirubin, Total 0.8 mg/dL (0.2-1.2); Calc. Creatinine Clearance 0 mL/min (70-130); Calcium 8.5 mg/dL (7.8-10.44); Carbon Dioxide 21 mmol/L (23-31); Chloride 108 mmol/L (98-107); Estimated GFR-MDRD 55; Globulin 3.4 g/dL (2.4-3.5); Glucose 108 mg/dL (83-110); Potassium 4.4 mmol/L (3.5-5.1); Sodium 138 mmol/L (136-145)
[2019-11-29 19:33] LABS: CKMB 2.7 ng/mL (0-6.6)
[2019-11-29] MEDS ORDERED: Aspirin Chewable 81 MG TAB ONE (20:09)
--- NOTE | 2019-11-29 21:20 | CT ---
Exam: CT angiogram of the chest HISTORY: Midsternal chest pain. Patient was traveling this weekend. COMPARISON: 11/26/2017 TECHNIQUE: CT angiogram of the chest is performed in the axial plane. Three-dimensional reformatted i mages are submitted for interpretation FINDINGS: Mediastinum: Stable prominent prevascular lymph node measuring 2.2 x 1.0 cm. No mediastinal mass or h ematoma. HEART: Upper normal cardiac silhouette. No significant pericardial fluid. Metallic spray from a coil mass noted in the left atrium. Aorta: No aneurysm or dissection Upper solid abdominal viscera: No abnormality. Contrast opacifies the inferior vena cava suggesting r ight heart failure. Trachea and central bronchi: Patent Pleural spaces: Small bilateral pleural effusions. Lung parenchyma: Minimal groundglass opacity and septal thickening suggesting component of edema. No suspicious masses or consolidation. Pneumothorax: None Osseous structures: No lytic or blastic lesions Pulmonary arteries: Adequate contrast opacification pulmonary arterial system to the level of segment al arteries. No filling defect to suggest pulmonary embolism Incidentals: There is evidence of previous bowel surgery with suture chain in the left upper quadrant . IMPRESSION: 1. No evidence of pulmonary artery embolism to the level segmental arteries 2. Small bilateral pleural effusions. 3. Right heart failure. 4. Minimal septal thickening and patchy groundglass opacities. Correlate for pulmonary edema. Transcribed Date/Time: 11/29/2019 10:06 PM
[2019-11-29] MEDS ORDERED: Nitroglycerin 2% Ointment 1 INCH/1 GM Packet ONE (21:28)
--- NOTE | 2019-11-29 22:02 | PDOC.FPRHP ---
- History of Present Illness Chief Complaint: chest pain, SOB History of Present Illness: Pt is 79-yo fun and life-loving female w/ PMHx of CAD, CHF, and a-fib s/p watchman procedure here for chest pressure in both breasts which started sometime on Wednesday when she was in [place]. Pain radiates to her neck. Associated w/ SOB for past couple of days, decreased exercise tolerance (has not been able to walk to mailbox lately). No weight gain, weighs self daily. Recently rode bus 5-6 hours to [place] and had symptoms. Upon return on Wednesday , chest pain worsened. + PND past couple of nights. Denies orthopnea. Increased swelling in legs and feet bilaterally. Reports sometimes her R leg is more swollen and red than her left. ED Course: Received 40mg IV lasix, nitro 1 inch paste, and 234mg aspirin. - Allergies/Adverse Reactions Allergies Allergy/AdvReac Type Severity Reaction Status Date / Time No Known Drug Allergies Allergy Verified 11/30/19 00:26 - Home Medications Medication Instructions Recorded Confirmed Type Sertraline HCl 100 mg PO QAM 04/19/14 11/29/19 History traZODone 100 mg PO HS 12/19/16 11/29/19 History Atorvastatin Calcium [Lipitor] 20 mg PO HS #30 tab 12/25/16 11/29/19 Rx Amlodipine [Norvasc] 5 mg PO QAM 11/26/17 11/29/19 History Aspirin Chewable [Aspirin Chewable 81 mg PO QAM 11/26/17 11/29/19 History Tablet] Levothyroxine Sodium 75 mcg PO QAM 11/26/17 11/29/19 History Digoxin [Lanoxin] 0.125 mcg PO QAM 04/27/18 11/29/19 History Furosemide 20 mg PO QAM 04/27/18 11/29/19 History Metoprolol Succinate 50 mg PO BID 04/27/18 11/29/19 History Pantoprazole [Protonix] 40 mg PO QAM 04/27/18 11/29/19 History Lisinopril 2.5 mg PO QAM 07/08/18 11/29/19 History Potassium Chloride [K-Dur] 20 meq PO DAILY 04/25/19 11/29/19 History Ferrous Sulfate 325 mg PO DAILY 11/29/19 11/29/19 History - History PMHx: Hypothyroidoism, CHF, a-fib, HTN, HLD, gout PSHx: - watchman procedure followed by kristen 1 year ago - cholecystectomy - hysterectomy - bladder lift - gastric bypass - R ankle repair, screws & rods. FHx: not assessed Social: - denies smoking, drugs - drinks socially every Yoni night. - Review of Systems General: denies: fever/chills, weight/appetite/sleep changes Eyes: denies: eye pain, vision changes ENT: denies: nasal congestion Respiratory: reports: cough (ongoing for past 6 months, productive of clear sputum), shortness of breath, exercise intolerance Cardiovascular: reports: chest pain, edema, paroxysmal nocturnal dyspnea. denies: palpitation, orthopnea Gastrointestinal: denies: nausea, vomiting, diarrhea Genitourinary: denies: dysuria Skin: denies: rashes Musculoskeletal: denies: pain Neurological: denies: syncope, weakness Psychological: reports: depression. denies: anxiety - Vital signs BP: 182/78, MAP: 112, Pulse: 71, Resp: 18, Temp: 98.4 (Oral), Pain: 2, O2 sat: 94 on (Room Air), Time: 11/29/2019 21:27. - Physical Exam Constitutional: NAD, awake, alert and oriented, well developed HEENT: normocephalic and atraumatic, conjunctiva clear, grossly normal vision, grossly normal hearing Neck: supple, FROM, trachea midline, no thyromegaly Heart: normal S1/S2, no murmurs/rubs/gallops -Heart: irregularly irregular , edema trace pitting b/l Lungs: no respiratory distress -Lungs: mild wheezing LLL Abdomen: soft, non-tender, bowel sounds present Musculoskeletal: normal structure, normal tone Neurological: no focal deficit Skin: no rash/lesions Heme/Lymphatic: no unusual bruising or bleeding, no purpura, no petechia Psychiatric: normal mood and affect, intact recent and remote memory FMR H&P: Results - Labs Result Diagrams: 11/29/19 18:42 11/29/19 18:42 Lab results: WBC 9.0 thou/uL (4.8-10.8) 11/29/19 18:42 Hgb 10.5 g/dL (12.0-16.0) L 11/29/19 18:42 Hct 33.0 % (36.0-47.0) L 11/29/19 18:42 MCV 88.3 fL (78.0-98.0) 11/29/19 18:42 Plt Count 217 thou/uL (130-400) 11/29/19 18:42 Neutrophils % 72.7 % (42.0-75.0) 11/29/19 18:42 Sodium 138 mmol/L (136-145) 11/29/19 18:42 Potassium 4.4 mmol/L (3.5-5.1) 11/29/19 18:42 Chloride 108 mmol/L (98-107) H 11/29/19 18:42 Carbon Dioxide 21 mmol/L (23-31) L 11/29/19 18:42 BUN 9 mg/dL (9.8-20.1) L 11/29/19 18:42 Creatinine 0.98 mg/dL (0.6-1.1) 11/29/19 18:42 Glucose 108 mg/dL (83-110) 11/29/19 18:42 Calcium 8.5 mg/dL (7.8-10.44) 11/29/19 18:42 Total Bilirubin 0.8 mg/dL (0.2-1.2) 11/29/19 18:42 AST 31 U/L (5-34) 11/29/19 18:42 ALT 17 U/L (8-55) 11/29/19 18:42 Alkaline Phosphatase 138 U/L (40-110) H 11/29/19 18:42 CK-MB (CK-2) 2.7 ng/mL (0-6.6) 11/29/19 18:42 B-Natriuretic Peptide 289.3 pg/mL (0-100) H 11/29/19 18:42 Serum Total Protein 7.0 g/dL (6.0-8.3) 11/29/19 18:42 Albumin 3.6 g/dL (3.4-4.8) 11/29/19 18:42 - EKG Interpretation EKG: a-fib, rate controlled. - Radiology Interpretation CT scan - chest Status: report reviewed by me Additional comment: no pulmonary embolism, small bilateral pleural effusion, right heart failure Chest x-ray Status: report reviewed by me (small R pleural effusion.) FMR H&P: A/P - Problem List (1) Chest pain Current Visit: Yes Status: Acute Code(s): R07.9 - CHEST PAIN, UNSPECIFIED (2) Acute on chronic diastolic heart failure Current Visit: No Status: Acute Code(s): I50.33 - ACUTE ON CHRONIC DIASTOLIC (CONGESTIVE) HEART FAILURE (3) Hypothyroidism (acquired) Current Visit: No Status: Chronic Code(s): E03.9 - HYPOTHYROIDISM, UNSPECIFIED (4) Gout Current Visit: No Status: Chronic Code(s): M10.9 - GOUT, UNSPECIFIED (5) Anemia Current Visit: Yes Status: Acute Code(s): D64.9 - ANEMIA, UNSPECIFIED - Plan 79 yo F w/ past history of CAD, CHF here for: Typical chest pain - Heart score = 7 - worse on exertion, improved w/ nitro - strict I/O, daily weights - lower extremity dopplers - stress test in AM - ECHO in AM - Risk stratify w/ labs. CHF exacerbation - lasix 40 IV given in ED - resume home PO meds in AM if improved. - did not appear remarkably fluid overloaded Anemia - likely chronic, appears to be near baseline over the past two years. - takes iron at home, last saw PCP in June. - ordered iron studies Chronic conditions: Hypothyroidism - continue home meds Gout - monitor CAD - continue home meds HTN - hold beta blockers for stress test in AM Diet: NPO at midnight fluids: none VTE ppx: lovenox Liyah Pozo MD PGY1 Disposition/LOS: Admit to telemetry obs. LOS < 48H. FMR H&P: Upper Level - Plan Date/Time: 11/29/192201 PCP: BLAS HPI: 80 yo F coming in for chest pain. PMH includes CAD, CHF, afib, gout, hypothyroidism, htn. Watchman procedure March 25 coil closure dec 27. Echo Nov 25 shows EF 50-55%, grade 2/3 diastolic dysfunction, p artery pressure 53. Multiple NELLY since that time evaluating Left atrial appendage. She is being admitted for chest pain described as crushing substernal pain which comes and goes lasting a few minutes at time. Worse with exertion. Radiates to neck. She denies shortness of breath, has been coughing for a few months, states her weight is stable, subjective fever 2 days ago. States she went on a trip to a casino in [place] over the weekend and when she got back from the bus ride she could not fit her 2 hands around her ankles but that has since resolved with no medication changes. She states she has chronic aches in the legs but no new pain. REVIEW OF SYSTEMS: Gen: subjective fever, no chills/sweats Neuro: denies headache Eyes: no visual changes ENT: no hearing changes, no sore throat, no congestion Resp: denies cough, SOB Card: see hpi GI: no N/V/D, no abdominal pain Heme: no easy bruising/bleeding, only on aspirin Skin: no rash, no erythema PHYSICAL EXAMINATION: General: NAD, alert and oriented x3 HEENT: PERRLA, EOMI, normal sclera, oropharynx without erythema or exudate Neck: Supple. Full ROM. Heart/Cardiovascular System: irregularly irregular rhythm, rate controlled, no murmur Lungs/Respiratory System: CTA-B, mild crackles R base Abdomen/Gastro-Intestinal System: no abdominal tenderness, normal bowel sounds Extremities: Warm extremities. No cyanosis, trace edema at ankles Neuro: No gross deficits appreciated. CN 2-12 grossly intact Psychiatry: Awake, Alert and cooperative with exam Skin: No lesions, rashes, or ulcers Musculoskeletal: Full ROM A/P: # Elevated troponin, typical chest pain, r/o ACS - Trop 0.078-> 0.074, trend - Heart: 7 - Last stress >3 years ago per patient - EKG no acute changes, afib rate controlled - Stress in AM # HFpEF, likely not in exacerbation - last echo nov 25 EF 50-55%, 2/3 diastolic dysfunction - repeat echo, BNP 290 - 1 dose 40mg IV Lasix in ED, oral in AM - weight 57 kg today, 61kg in clinic in , 59kg February 24 - able to lie flat without cough - mild pleural effusion on the R # Afib s/p watchman, coil - chadsvasc: 5 - only on ASA b/c watchman device # Elevated d- dimer - CTA neg - Will check Doppler lower ext, hx of long car ride # gout, htn - Home meds # Anemia - Stable at hgb 10, home iron has not been refilled since jun 2018 - Check iron studies Fluids: tko Code status: full PPx: amadeonox, scd Dispo: 1-2 days pending Addendum - Attending - Attending Attestation Date/Time: 11/30/19 0030 I personally evaluated the patient and discussed the management with Dr. Pozo /Cyndi I agree with the History, Examination, Assessment and Plan documented above with any addition or exceptions noted below. 79 yo WF PMH HTN, CAD, HFpEF, a-fib s/p watchman placement. Presents with 3 day hx of leg swelling, bilateral chest pain "behind both breasts", and SOB. States she went on a 6 hr bus trip to [place] on Wednesday and return on Wednesday. Following trip, states she had swelling in feet R>L to the point she could not put on her shoes and had difficulty breathing and chest pain. Denies medication non-compliance, fluid restriction non-compliance, or change in sodium intake. States swelling has almost resolved. Exam remarkable for normal rate, irreg/ irreg rhythm and trace lower extremity edema to mid [place]le. Labs show mild elevation in BNP and troponin. EKG afib, rate controlled. CXR Right pleural effusion. CTA-chest bilateral pleural effusions with minimal pulmonary edema, no PE. Observe for likely mild CHF exacerbation that is likely resolving and to r/o ACS. trend trop. TTE and stress test in the morning. repeat lasix dose if no improvement but had already had approx 500 mL urine output in ER. No recent labs so repeat to risk stratify. Obs, Tele, <2 midnights.
[2019-11-29] MEDS ORDERED: Furosemide 40 MG/4 ML VIAL ONE (22:13)
[2019-11-29] MEDS ORDERED: Nitroglycerin 0.4 MG TAB (25 Tab Bottle) PO PRN (22:34)
[2019-11-29] MEDS ORDERED: Ondansetron PF 4 MG/2 ML Vial IVP PRN (22:34)
[2019-11-29] MEDS ORDERED: Ondansetron ODT 4 MG TAB PO PRN (22:34)
[2019-11-29] MEDS ORDERED: Acetaminophen 325 MG TAB PO PRN (22:34)
[2019-11-29] MEDS ORDERED: Enoxaparin Sodium 40 MG/0.4 ML SYRINGE SC SCH (22:45)
[2019-11-29 22:56] LABS: Troponin I 0.074 ng/mL (< 0.028)
[2019-11-29 22:57] LABS: Magnesium 1.6 mg/dL (1.6-2.6); Phosphorus 3.1 mg/dL (2.3-4.7)
[2019-11-29 23:23] LABS: Hemoglobin A1c 5.8 % (4.0-6.0)
[2019-11-29 23:31] LABS: Iron 26 ug/dL (50-170); Iron Binding Capacity, Total 349 mcg/dL (265-497); Transferrin, Serum 279 mg/dL (173-360)
[2019-11-30 00:14] VITALS: BMI 24.0
[2019-11-30 00:35] LABS: Ferritin 53.88 ng/mL (10-291)
[2019-11-30] MEDS ORDERED: traZODone HCl 50 MG TAB PO SCH ×2 (00:45→21:00)
[2019-11-30 01:44] LABS: Troponin I 0.074 ng/mL (< 0.028)
[2019-11-30 05:07] LABS: #Eosinphils 0.1 thou/uL (0.0-0.7); #Lymphocytes 2.5 thou/uL (1.20-3.40); #Monocytes 0.4 thou/uL (0.11-0.59); #Neutrophils 6.1 thou/uL (1.40-6.50); %Basophils 0.5 % (0.0-1.0); %Eosinophils 0.7 % (0.0-10.0); %Lymphocytes 27.1 % (21.0-51.0); %Monocytes 4.1 % (0.0-10.0); %Neutrophils 67.7 % (42.0-75.0); Hemoglobin 10.8 g/dL (12.0-16.0); Mean Corpuscular Hemoglobin 27.3 pg (27.0-31.0); Mean Platelet Volume 8.6 fL (7.4-10.4); Platelet Count 230 thou/uL (130-400); RBC Distribution Width 15.1 % (11.5-14.5); Red Blood Cell (RBC) Count 3.96 mill/uL (4.20-5.40); White Blood Cell (WBC) Count 9.1 thou/uL (4.8-10.8)
[2019-11-30 05:10] LABS: Anion Gap 14 mmol/L (10-20); BUN (Urea Nitrogen) 10 mg/dL (9.8-20.1); Calc. Creatinine Clearance 43 mL/min (70-130); Calcium 9.2 mg/dL (7.8-10.44); Carbon Dioxide 28 mmol/L (23-31); Chloride 102 mmol/L (98-107); Cholesterol 98 mg/dl (< 200 Desired); Estimated GFR-MDRD 51; Glucose 94 mg/dL (83-110); HDL Cholesterol 49 mg/dL (>60 Neg Risk); LDL Cholesterol, Calculated 38 mg/dL; Potassium 4.1 mmol/L (3.5-5.1); Sodium 140 mmol/L (136-145); Triglycerides 57 mg/dL (Less than 150)
[2019-11-30] MEDS ORDERED: Levothyroxine Sodium 75 MCG TAB PO SCH (06:00)
--- NOTE | 2019-11-30 06:00 | PDOC.FM ---
- Subjective Subjective: Pt denies any further SOB or chest pain since admission. Feels that her right LE edema has improved but states it is still intermittently sore. Explained the plan for today and pt agrees to undergo LE doppler, echo, and stress today. - Objective Vital Signs & Weight: Vital Signs (12 hours) Temp Pulse Resp BP Pulse Ox 11/30/19 04:30 98.2 F 75 18 166/79 H 96 11/30/19 01:15 97.5 F L 76 19 173/79 H 94 L 11/30/19 00:17 97.5 F L 77 20 94 L 11/29/19 23:45 97.5 F L 77 20 190/90 H 94 L Weight Weight 61.19 kg I&O: 11/28/19 11/29/19 11/30/19 06:59 06:59 06:59 Output Total 1300 Balance -1300 Result Diagrams: 11/30/19 04:26 11/30/19 04:26 Phys Exam - Physical Examination Constitutional: NAD HEENT: moist MMs, sclera anicteric Neck: full ROM Respiratory: no wheezing, clear to auscultation bilateral Cardiovascular: no significant murmur irregularly irregular Gastrointestinal: soft, non-tender tace non-pitting edema to BLE, slightly tender right calf Neurological: non-focal, moves all 4 limbs Psychiatric: normal affect, A&O x 3 Skin: no rash, cap refill <2 seconds Dx/Plan (1) Chest pain Code(s): R07.9 - CHEST PAIN, UNSPECIFIED Status: Acute (2) Atrial fibrillation Code(s): I48.91 - UNSPECIFIED ATRIAL FIBRILLATION Status: Acute (3) Hypertension Code(s): I10 - ESSENTIAL (PRIMARY) HYPERTENSION Status: Acute (4) Hypothyroidism (acquired) Code(s): E03.9 - HYPOTHYROIDISM, UNSPECIFIED Status: Chronic - Plan Plan: Typical chest pain - Heart score = 7, CTA on admission negative for PE - lower extremity doppler ordered, D-dimer 0.88 - stress test today - Risk stratification: A1c - 5.8, FLP - WNL, TSH - 4.2 - trops remained stable at indeterminate level and slightly downtrended CHF exacerbation - lasix 40 IV given in ED - resume home PO meds - strict I/O, daily weights - ECHO today - TTE 2018: 2/3 diastolyc dysfunction and EF 50-55% - NELLY 2019: Moderate left atrial enlargement, watchmen well positioned Anemia - likely chronic iron deficiency anemia, takes supplement at home Chronic conditions: Atrial Fibrillation - Resume digoxin - Hx of watchmen Hypothyroidism - continue home meds Gout - monitor CAD - continue home meds HTN - hold beta blockers for stress test in AM Diet: NPO until stress then HH fluids: none VTE ppx: lovenox Dispo: Admit tele obs for ACS r/o. Addendum - Attending - Attending Attestation Date/Time: 11/30/19 8720 I personally evaluated the patient and discussed the management with Dr. Nguyen. I agree with the History, Examination, Assessment and Plan documented above with any addition or exceptions noted below. Patient here for ACS r/o and risk stratification. ACS ruled out, now undergoing stress testing. Discharge home if normal.
--- NOTE | 2019-11-30 08:07 | ULT ---
Venous duplex sonogram bilateral lower extremity HISTORY: Bilateral leg pain and edema. FINDINGS: Each common femoral vein and greater saphenous junction were evaluated along with each femo ral, deep femoral, popliteal, and posterior tibial vein. There is good color and spectral Doppler flow, compression, and augmentation. IMPRESSION: Normal exam.
[2019-11-30] MEDS ORDERED: ADENOSINE 60 MG/20 ML VIAL ONE (08:55)
[2019-11-30] MEDS ORDERED: Digoxin 0.125 MG TAB PO SCH ×2 (09:00)
[2019-11-30] MEDS ORDERED: Potassium Chloride 20 MEQ TAB PO SCH (09:00)
[2019-11-30] MEDS ORDERED: Furosemide 20 MG TAB PO SCH (09:00)
[2019-11-30] MEDS ORDERED: Ferrous Sulfate 325 MG TAB PO SCH (09:00)
[2019-11-30] MEDS ORDERED: Amlodipine 5 MG TAB PO SCH (09:00)
[2019-11-30] MEDS ORDERED: Aspirin Chewable 81 MG TAB PO SCH (09:00)
[2019-11-30] MEDS ORDERED: Lisinopril 2.5 MG TAB PO SCH (09:00)
[2019-11-30] MEDS ORDERED: Enoxaparin Sodium 40 MG/0.4 ML SYRINGE SC SCH (09:00)
[2019-11-30 15:22] VITALS: TEMP 97.5
--- NOTE | 2019-11-30 15:40 | NM ---
Nuclear medicine Cardiac myocardial perfusion SPECT Ejection fraction study Wall motion cine: DATE:11/30/2019 12:00 AM INDICATION: Chest pain TECHNIQUE: Number of days:2 Rest Study: Technetium 99m-sestamibi (Cardiolite) dose:9.20 mCi Stress study: Technetium 99m-sestamibi (Cardiolite) dose:27.60 mCi FINDINGS: Cardiac (myocardial perfusion) SPECT There are no reversible myocardial perfusion defects. Ejection fraction study Left ventricular EF = 71% Wall motion cine Normal wall motion and thickening IMPRESSION: No evidence of reversible myocardial ischemia.
[2019-11-30 18:00] VITALS: BP 168/79
[2019-11-30] MEDS ORDERED: Atorvastatin Calcium 20 MG TAB PO SCH (21:00)
--- NOTE | 2019-12-02 02:59 | DIS ---
DATE OF ADMISSION: 11/29/2019 DATE OF DISCHARGE: 11/30/2019 ADMITTING ATTENDING: Alfie Dye MD DISCHARGE ATTENDING: Richy Nathan MD RESIDENT: Trav Nguyen DO CONSULTS: None. PROCEDURES PERFORMED: None. PRIMARY DIAGNOSES: Acute on chronic diastolic heart failure, atrial fibrillation status post Watchman procedure, coronary artery disease. SECONDARY DIAGNOSES: Typical chest pain, anemia, hypertension. IMAGING: CTA chest. Findings; no evidence of pulmonary artery embolism. Small bilateral pleural effusions. Right heart failure. Minimal septal thickening and patchy ground-glass opacities in the lungs. Chest x-ray. Findings; small right-sided pleural effusion. Stress test-nuclear medicine. Findings; no evidence of reversible myocardial ischemia. DISCHARGE MEDICATIONS: 1. Sertraline 100 mg daily. 2. Trazodone 100 mg at bedtime. 3. Atorvastatin 20 mg at bedtime. 4. Amlodipine 5 mg a.m. 5. Levothyroxine 75 mcg a.m. 6. Aspirin 81 mg daily. 7. Digoxin 0.125mg daily. 8. Furosemide 20 mg daily. 9. Metoprolol succinate 50 mg b.i.d. 10. Pantoprazole 40 mg daily. 11. Lisinopril 2.5 mg daily. 12. K-Dur 20 mEq daily. 13. Ferrous sulfate 325 mg daily. HISTORY OF PRESENT ILLNESS AND HOSPITAL COURSE: The patient is a 79-year-old female, who presented to the ED for chest pressure that started a few days ago that radiates to her neck with associated shortness of breath. The patient also noted increased dyspnea on exertion and paroxysmal nocturnal dyspnea. She displayed increased swelling in her legs and feet bilaterally and noted a recent bus ride that lasted approximately 6 hours. She received 40 mg of Lasix, nitroglycerin paste , and aspirin in the ER. Initial workup showed CBC with findings of anemia at 10.5, and chemistries showing BNP of 289 and initial troponin of 0.078. The patient was subsequently admitted to the hospital to the telemetry floor for ACS rule out and continuous cardiac monitoring. The patient's troponins were trended and remained stable at 0.074. The following day, the patient had a stress test performed that showed no areas of reversible ischemia. She also had a venogram of bilateral lower extremities that was negative for any clots. At the time of discharge, the patient was asymptomatic. She noted resolution in her shortness of breath and no continuation of her chest pain. The patient was recommended to continue her home medications upon discharge and follow up with her PCP accordingly. DISCHARGE INSTRUCTIONS: 1. Location: Home. 2. Diet: Heart healthy. 3. Activity: As tolerated. 4. Followup: PCP within 7 days. Job ID: [id number] MTDD
== END 2019-11-30 17:55 | disposition home or self-care (01) ==
LOC: ERS 18:19 → 2NO 23:50
PROVIDERS: ADMIT Family Medicine; ATTEND Emergency Medicine
DX: I11.0 Hypertensive heart disease with heart failure (principal); I50.33 Acute on chronic diastolic (congestive) heart failure; I48.91 Unspecified atrial fibrillation; I25.10 Atherosclerotic heart disease of native coronary artery without angina pectoris; D64.9 Anemia, unspecified; E78.5 Hyperlipidemia, unspecified; M10.9 Gout, unspecified; E03.9 Hypothyroidism, unspecified; R79.89 Other specified abnormal findings of blood chemistry; R79.1 Abnormal coagulation profile; Z79.82 Long term (current) use of aspirin; Z79.899 Other long term (current) drug therapy; Z95.818 Presence of other cardiac implants and grafts; Z98.84 Bariatric surgery status
CPT/HCPCS: 71046; 71275; 78452; 80048; 80061; 82553; 82607; 82728; 82746; 83036; 83540; 83735; 83880; 84100; 84484 ×3; 85025; 85379; 93005; 93017; 93306; 93970; 96372; 96374; 96375; 97139 ×5; 97535; 99285; A9500; G0378 ×2; 36415; 80053; 83550; 84443; 84466; J0153; J1650; J1940; J2405; Q9967

== ENCOUNTER 2021-01-08 13:29 | Outpatient (CLI) | payer MEDICARE ==
--- NOTE | 2021-01-08 14:07 | ULT ---
Exam: Bilateral renal ultrasound HISTORY: Chronic kidney disease COMPARISON: None FINDINGS: Right kidney: Normal cortical echotexture. No hydronephrosis. Right kidney measurements: 4.5 x 3.9 x 8.7 cm. Left kidney: Normal cortical echotexture. No hydronephrosis Left kidney measurements 5.3 x 4.4 x 8.0 cm. Urinary bladder: Normal mucosa. IMPRESSION: No hydronephrosis. Bilaterally renal cortical thinning.
== END 2021-01-08 13:30 | disposition home or self-care (01) ==
LOC: BICULT 13:29
PROVIDERS: ATTEND Internal Medicine Nephrology
DX: N18.9 Chronic kidney disease, unspecified (principal); N28.89 Other specified disorders of kidney and ureter; N18.30 Chronic kidney disease, stage 3 unspecified
CPT/HCPCS: 36415; 76770; 80048; 81001; 83970; 84100; 85025

== ENCOUNTER 2021-11-12 15:17 | Emergency (ER) | payer MEDICARE ==
[2021-11-12 17:39] LABS: #Lymphocytes 1.1 thou/uL (1.20-3.40); #Monocytes 0.7 thou/uL (0.11-0.59); #Neutrophils 5.8 thou/uL (1.40-6.50); %Eosinophils 0.4 % (0.0-10.0); %Lymphocytes 14.7 % (21.0-51.0); %Monocytes 8.8 % (0.0-10.0); %Neutrophils 76.1 % (42.0-75.0); Hemoglobin 9.5 g/dL (12.0-16.0); Mean Corpuscular HGB CONC 33.9 g/dL (32.0-36.0); Mean Corpuscular Hemoglobin 31.9 pg (27.0-31.0); Mean Corpuscular Volume 94.2 fL (78.0-98.0); Mean Platelet Volume 8.3 fL (7.4-10.4); Platelet Count 139 thou/uL (130-400); RBC Distribution Width 13.1 % (11.5-14.5); Red Blood Cell (RBC) Count 2.98 mill/uL (4.20-5.40); White Blood Cell (WBC) Count 7.6 thou/uL (4.8-10.8)
[2021-11-12 17:53] LABS: ALT (SGPT) 13 U/L (8-55); AST (SGOT) 32 U/L (5-34); Albumin 3.6 g/dL (3.4-4.8); Alkaline Phosphatase 128 U/L (40-110); Anion Gap 12 mmol/L (10-20); BUN (Urea Nitrogen) 15 mg/dL (9.8-20.1); Bilirubin, Total 0.9 mg/dL (0.2-1.2); Calc. Creatinine Clearance 0 mL/min (70-130); Calcium 9.1 mg/dL (7.8-10.44); Carbon Dioxide 22 mmol/L (23-31); Chloride 98 mmol/L (98-107); Globulin 3.6 g/dL (2.4-3.5); Glucose 96 mg/dL (83-110); Lipase 33 U/L (8-78); Potassium 4.1 mmol/L (3.5-5.1); Protein, Total 7.2 g/dL (5.8-8.1); Sodium 128 mmol/L (136-145)
[2021-11-12] MEDS ORDERED: Acetaminophen 500 MG TAB ONE (18:08)
[2021-11-12] MEDS ORDERED: Ondansetron ODT 4 MG TAB ONE (18:08)
[2021-11-13 16:22] LABS: SARS-CoV-2 PCR by NAA DETECTED (NotDetected)
== END 2021-11-12 19:45 | disposition home or self-care (01) ==
LOC: ERS 15:17
DX: U07.1 COVID-19 (principal); E86.0 Dehydration; A08.4 Viral intestinal infection, unspecified; E87.1 Hypo-osmolality and hyponatremia; I11.0 Hypertensive heart disease with heart failure; I50.9 Heart failure, unspecified; I48.91 Unspecified atrial fibrillation; E78.5 Hyperlipidemia, unspecified; E03.9 Hypothyroidism, unspecified; M10.9 Gout, unspecified; E78.00 Pure hypercholesterolemia, unspecified; I25.2 Old myocardial infarction; Z79.82 Long term (current) use of aspirin
CPT/HCPCS: 80053; 83690; 85025; U0003; U0005; 36415; 99284; Q0162

== ENCOUNTER 2021-12-21 15:30 | Observation (INO) | payer MEDICARE ==
[2021-12-21 16:28] LABS: #Eosinphils 0.1 thou/uL (0.0-0.7); #Lymphocytes 1.3 thou/uL (1.20-3.40); #Monocytes 0.4 thou/uL (0.11-0.59); #Neutrophils 6.3 thou/uL (1.40-6.50); %Basophils 0.2 % (0.0-1.0); %Eosinophils 0.6 % (0.0-10.0); %Lymphocytes 16.6 % (21.0-51.0); %Monocytes 4.8 % (0.0-10.0); %Neutrophils 77.8 % (42.0-75.0); Mean Corpuscular HGB CONC 31.5 g/dL (32.0-36.0); Mean Corpuscular Volume 95.4 fL (78.0-98.0); Mean Platelet Volume 7.9 fL (7.4-10.4); Platelet Count 170 thou/uL (130-400); RBC Distribution Width 14.1 % (11.5-14.5); Red Blood Cell (RBC) Count 3.32 mill/uL (4.20-5.40); White Blood Cell (WBC) Count 8.1 thou/uL (4.8-10.8)
[2021-12-21 16:48] LABS: ALT (SGPT) 10 U/L (8-55); AST (SGOT) 31 U/L (5-34); Albumin 3.6 g/dL (3.4-4.8); Alkaline Phosphatase 124 U/L (40-110); Anion Gap 13 mmol/L (10-20); BUN (Urea Nitrogen) 9 mg/dL (9.8-20.1); Bilirubin, Total 0.7 mg/dL (0.2-1.2); Calc. Creatinine Clearance 0 mL/min (70-130); Calcium 8.4 mg/dL (7.8-10.44); Carbon Dioxide 26 mmol/L (23-31); Chloride 102 mmol/L (98-107); Globulin 3.1 g/dL (2.4-3.5); Glucose 112 mg/dL (83-110); Potassium 3.5 mmol/L (3.5-5.1); Protein, Total 6.7 g/dL (5.8-8.1); Sodium 137 mmol/L (136-145)
[2021-12-21 17:10] LABS: CKMB 1.6 ng/mL (0-6.6)
[2021-12-21] MEDS ORDERED: Ondansetron PF 4 MG/2 ML Vial ONE (17:21)
[2021-12-21] MEDS ORDERED: Acetaminophen 325 MG TAB PO PRN (19:33)
[2021-12-21 19:37] LABS: Lactic Acid 0.9 mmol/L (0.5-2.2)
[2021-12-21 19:46] LABS: Troponin I 0.036 ng/mL (< 0.028)
[2021-12-21 20:04] LABS: Bilirubin Negative (Negative); Blood, Urine Negative (Negative); Clarity Clear (Clear); Glucose, Urine (Dipstick) Normal (Negative); Ketone, Urine Negative (Negative); Leukocyte Negative Leu/uL (Negative); Nitrite Negative (Negative); Protein, Urine (Dipstick) Negative (Neg-Trace); Specific Gravity, Urine 1.007 (1.002-1.036); Urobilinogen Normal mg/dL (Less than 2)
[2021-12-21 20:12] LABS: Digoxin Less than 0.15 ng/mL (0.8-2.0)
[2021-12-21] MEDS ORDERED: Meclizine HCl 25 MG TAB PO SCH (23:00)
[2021-12-21 23:12] VITALS: BMI 23.2
[2021-12-21 23:12] LABS: Troponin I 0.033 ng/mL (< 0.028)
[2021-12-21] MEDS ORDERED: traZODone HCl 50 MG TAB PO SCH (23:15)
[2021-12-22 04:35] LABS: ALT (SGPT) 16 U/L (8-55); AST (SGOT) 32 U/L (5-34); Albumin 3.3 g/dL (3.4-4.8); Alkaline Phosphatase 108 U/L (40-110); Anion Gap 20 mmol/L (10-20); BUN (Urea Nitrogen) 10 mg/dL (9.8-20.1); Bilirubin, Total 0.6 mg/dL (0.2-1.2); Calc. Creatinine Clearance 36 mL/min (70-130); Calcium 8.3 mg/dL (7.8-10.44); Carbon Dioxide 18 mmol/L (23-31); Chloride 99 mmol/L (98-107); Glucose 86 mg/dL (83-110); Potassium 3.4 mmol/L (3.5-5.1); Protein, Total 6.3 g/dL (5.8-8.1); Sodium 134 mmol/L (136-145)
[2021-12-22 04:42] LABS: Band 2 % (5-11); Hemoglobin 8.9 g/dL (12.0-16.0); Lymphocytes 29 % (21-51); MDiff Complete? YES; Mean Corpuscular HGB CONC 31.9 g/dL (32.0-36.0); Mean Corpuscular Hemoglobin 30.3 pg (27.0-31.0); Mean Corpuscular Volume 94.9 fL (78.0-98.0); Mean Platelet Volume 7.8 fL (7.4-10.4); Monocytes 1 % (0-10); Neutrophil 68 % (42-75); Platelet Count 138 thou/uL (130-400); RBC Distribution Width 14.2 % (11.5-14.5); Red Blood Cell (RBC) Count 2.92 mill/uL (4.20-5.40); White Blood Cell (WBC) Count 6.6 thou/uL (4.8-10.8)
[2021-12-22] MEDS ORDERED: Levothyroxine Sodium 100 MCG TAB PO SCH (06:00)
[2021-12-22 07:09] LABS: Magnesium 1.6 mg/dL (1.6-2.6); Phosphorus 3.2 mg/dL (2.3-4.7)
[2021-12-22] MEDS ORDERED: Furosemide 20 MG TAB PO SCH (09:00)
[2021-12-22] MEDS ORDERED: Calcitriol 0.25 MCG CAP PO SCH (09:00)
[2021-12-22] MEDS ORDERED: Apixaban 2.5 MG TAB PO SCH (09:00)
[2021-12-22] MEDS ORDERED: Losartan 25 MG TAB PO SCH (09:00)
[2021-12-22] MEDS ORDERED: Isosorbide Dinitrate 20 MG TAB PO SCH (09:00)
[2021-12-22] MEDS ORDERED: Ergocalciferol 1.25 MG(50,000 UNITS) CAP PO SCH (09:00)
[2021-12-22] MEDS: hydrALAZINE 25 MG TAB PO SCH ×2 (10:08→16:43)
[2021-12-22] MEDS: Isosorbide Dinitrate 20 MG TAB PO SCH ×2 (10:11→16:43)
[2021-12-22 16:08] VITALS: TEMP 97.6
[2021-12-22 16:58] VITALS: BP 147/63
[2021-12-22] MEDS ORDERED: traZODone HCl 50 MG TAB PO SCH ×2 (21:00)
[2021-12-22] MEDS ORDERED: Atorvastatin Calcium 20 MG TAB PO SCH (21:00)
== END 2021-12-22 18:00 | disposition home health service (06) ==
LOC: ERS 15:30 → ERHOLD 18:51 → 2NO 22:08
PROVIDERS: ADMIT Family Medicine; ATTEND Family Medicine
DX: R42 Dizziness and giddiness (principal); I13.0 Hypertensive heart and chronic kidney disease with heart failure and stage 1 through stage 4 chronic kidney disease, or unspecified chronic kidney disease; N18.32 Chronic kidney disease, stage 3b; I50.40 Unspecified combined systolic (congestive) and diastolic (congestive) heart failure; D63.1 Anemia in chronic kidney disease; I48.21 Permanent atrial fibrillation; M10.9 Gout, unspecified; E03.9 Hypothyroidism, unspecified; E78.5 Hyperlipidemia, unspecified; J30.9 Allergic rhinitis, unspecified; K21.9 Gastro-esophageal reflux disease without esophagitis; I25.10 Atherosclerotic heart disease of native coronary artery without angina pectoris; I27.20 Pulmonary hypertension, unspecified; I07.1 Rheumatic tricuspid insufficiency; Z86.16 Personal history of COVID-19; Z79.01 Long term (current) use of anticoagulants; Z79.899 Other long term (current) drug therapy; Z98.84 Bariatric surgery status
CPT/HCPCS: 36415; 71045; 80053; 80162; 81003; 82553; 83605; 83735; 84100; 84484; 85007; 85025; 85027; 93005; 96374; G0378; J2405

== ENCOUNTER 2022-03-17 12:28 | Inpatient (IN) | payer MEDICARE ==
[2022-03-17 13:31] LABS: #Eosinphils 0.1 thou/uL (0.0-0.7); #Lymphocytes 1.7 thou/uL (1.20-3.40); #Monocytes 0.4 thou/uL (0.11-0.59); #Neutrophils 4.6 thou/uL (1.40-6.50); %Basophils 0.7 % (0.0-1.0); %Eosinophils 0.8 % (0.0-10.0); %Lymphocytes 24.3 % (21.0-51.0); %Monocytes 6.2 % (0.0-10.0); %Neutrophils 68.1 % (42.0-75.0); Hemoglobin 8.6 g/dL (12.0-16.0); Mean Corpuscular HGB CONC 31.6 g/dL (32.0-36.0); Mean Corpuscular Hemoglobin 29.2 pg (27.0-31.0); Mean Corpuscular Volume 92.4 fL (78.0-98.0); Mean Platelet Volume 8.1 fL (7.4-10.4); Platelet Count 162 thou/uL (130-400); RBC Distribution Width 15.3 % (11.5-14.5); Red Blood Cell (RBC) Count 2.94 mill/uL (4.20-5.40); White Blood Cell (WBC) Count 6.8 thou/uL (4.8-10.8)
[2022-03-17 13:51] LABS: ALT (SGPT) 16 U/L (8-55); AST (SGOT) 42 U/L (5-34); Albumin 3.2 g/dL (3.4-4.8); Alkaline Phosphatase 149 U/L (40-110); Anion Gap 15 mmol/L (10-20); BUN (Urea Nitrogen) 19 mg/dL (9.8-20.1); Bilirubin, Total 0.7 mg/dL (0.2-1.2); Calc. Creatinine Clearance 0 mL/min (70-130); Calcium 8.5 mg/dL (7.8-10.44); Carbon Dioxide 19 mmol/L (23-31); Chloride 100 mmol/L (98-107); Globulin 3.5 g/dL (2.4-3.5); Glucose 85 mg/dL (83-110); Potassium 3.6 mmol/L (3.5-5.1); Protein, Total 6.7 g/dL (5.8-8.1); Sodium 130 mmol/L (136-145)
[2022-03-17 14:08] LABS: Bacteria/HPF 4+ HPF (None Seen); Bilirubin Negative (Negative); Blood, Urine Negative (Negative); Clarity Turbid (Clear); Glucose, Urine (Dipstick) Normal (Negative); Ketone, Urine Negative (Negative); Leukocyte 500 Leu/uL (Negative); Nitrite 2+ (Negative); Protein, Urine (Dipstick) 20 mg/dL (Neg-Trace); RBC/HPF 0-3 HPF (0-3); Specific Gravity, Urine 1.019 (1.002-1.036); Squamous Epithelial 21-50 HPF (0-3); Urobilinogen 3 mg/dL (Less than 2); WBC/HPF Greater than 50 HPF (0-3)
[2022-03-17] MEDS ORDERED: Morphine 4 MG/ML VIAL ONE (16:41)
[2022-03-17] MEDS ORDERED: cefTRIAXone\\ROCEPHIN 2 GM VIAL ONE (16:42)
[2022-03-17] MEDS ORDERED: Furosemide 40 MG/4 ML VIAL ONE (16:42)
[2022-03-17] MEDS ORDERED: Ondansetron PF 4 MG/2 ML Vial IVP PRN (17:04)
[2022-03-17] MEDS ORDERED: Acetaminophen 325 MG TAB PO PRN (17:04)
[2022-03-17] MEDS ORDERED: Ondansetron ODT 4 MG TAB PO PRN (17:04)
[2022-03-17] MEDS: traZODone HCl 50 MG TAB PO SCH (21:27)
[2022-03-17] MEDS: Atorvastatin Calcium 20 MG TAB PO SCH (21:28)
[2022-03-17] MEDS: Gabapentin 100 MG CAP PO SCH (21:28)
[2022-03-17] MEDS: Apixaban 2.5 MG TAB PO SCH (21:28)
[2022-03-18 05:15] LABS: #Eosinphils 0.1 thou/uL (0.0-0.7); #Lymphocytes 1.2 thou/uL (1.20-3.40); #Monocytes 0.3 thou/uL (0.11-0.59); #Neutrophils 3.7 thou/uL (1.40-6.50); %Basophils 0.4 % (0.0-1.0); %Eosinophils 0.9 % (0.0-10.0); %Lymphocytes 22.4 % (21.0-51.0); %Monocytes 6.4 % (0.0-10.0); %Neutrophils 69.9 % (42.0-75.0); Hemoglobin 8.5 g/dL (12.0-16.0); Mean Corpuscular HGB CONC 32.5 g/dL (32.0-36.0); Mean Corpuscular Hemoglobin 29.9 pg (27.0-31.0); Mean Corpuscular Volume 91.8 fL (78.0-98.0); Mean Platelet Volume 8.2 fL (7.4-10.4); Platelet Count 135 thou/uL (130-400); RBC Distribution Width 15.4 % (11.5-14.5); Red Blood Cell (RBC) Count 2.84 mill/uL (4.20-5.40); White Blood Cell (WBC) Count 5.4 thou/uL (4.8-10.8)
[2022-03-18 05:35] LABS: ALT (SGPT) 13 U/L (8-55); AST (SGOT) 30 U/L (5-34); Alkaline Phosphatase 138 U/L (40-110); Anion Gap 13 mmol/L (10-20); BUN (Urea Nitrogen) 18 mg/dL (9.8-20.1); Bilirubin, Total 0.6 mg/dL (0.2-1.2); Calc. Creatinine Clearance 30 mL/min (70-130); Calcium 8.3 mg/dL (7.8-10.44); Carbon Dioxide 25 mmol/L (23-31); Chloride 101 mmol/L (98-107); Globulin 3.2 g/dL (2.4-3.5); Glucose 87 mg/dL (83-110); Potassium 3.5 mmol/L (3.5-5.1); Protein, Total 6.2 g/dL (5.8-8.1); Sodium 135 mmol/L (136-145)
[2022-03-18] MEDS: Levothyroxine Sodium 75 MCG TAB PO SCH (05:35)
[2022-03-18] MEDS ORDERED: Furosemide 20 MG/2 ML VIAL SLOW IVP SCH ×2 (08:45)
[2022-03-18 09:40] LABS: Iron 38 ug/dL (50-170); Iron Binding Capacity, Total 363 mcg/dL (265-497)
[2022-03-18] MEDS: Calcitriol 0.25 MCG CAP PO SCH (09:44)
[2022-03-18] MEDS: Gabapentin 100 MG CAP PO SCH ×3 (09:44→20:38)
[2022-03-18] MEDS: Apixaban 2.5 MG TAB PO SCH ×2 (09:45→20:38)
[2022-03-18 09:57] VITALS: BMI 26.2
[2022-03-18 10:06] LABS: Ferritin 23.8 ng/mL (10-291)
[2022-03-18 10:39] LABS: Reticulocyte Count 2.8 % (0.5-1.5)
[2022-03-18 12:14] LABS: SARS-CoV-2 PCR NAA for Saliva Not Detected (NotDetected)
[2022-03-18] MEDS: cefTRIAXone\\ROCEPHIN 1 GM in Sodium Chloride 0.9% 100 ML IVPB SCH (15:31)
[2022-03-18] MEDS: Atorvastatin Calcium 20 MG TAB PO SCH (20:38)
[2022-03-18] MEDS: traZODone HCl 50 MG TAB PO SCH (20:38)
[2022-03-19 05:35] LABS: ALT (SGPT) 17 U/L (8-55); AST (SGOT) 35 U/L (5-34); Albumin 3.1 g/dL (3.4-4.8); Alkaline Phosphatase 148 U/L (40-110); Anion Gap 11 mmol/L (10-20); BUN (Urea Nitrogen) 19 mg/dL (9.8-20.1); Bilirubin, Total 0.6 mg/dL (0.2-1.2); Calc. Creatinine Clearance 36 mL/min (70-130); Calcium 8.6 mg/dL (7.8-10.44); Carbon Dioxide 28 mmol/L (23-31); Chloride 100 mmol/L (98-107); Globulin 3.3 g/dL (2.4-3.5); Glucose 94 mg/dL (83-110); Potassium 3.6 mmol/L (3.5-5.1); Protein, Total 6.4 g/dL (5.8-8.1); Sodium 135 mmol/L (136-145)
[2022-03-19 05:49] LABS: #Eosinphils 0.1 thou/uL (0.0-0.7); #Lymphocytes 1.5 thou/uL (1.20-3.40); #Monocytes 0.3 thou/uL (0.11-0.59); #Neutrophils 3.9 thou/uL (1.40-6.50); %Basophils 0.1 % (0.0-1.0); %Lymphocytes 26.3 % (21.0-51.0); %Monocytes 5.9 % (0.0-10.0); %Neutrophils 66.7 % (42.0-75.0); Hemoglobin 8.6 g/dL (12.0-16.0); Mean Corpuscular HGB CONC 32.4 g/dL (32.0-36.0); Mean Corpuscular Hemoglobin 29.6 pg (27.0-31.0); Mean Corpuscular Volume 91.4 fL (78.0-98.0); Mean Platelet Volume 4.5 fL (7.4-10.4); Platelet Count 152 thou/uL (130-400); RBC Distribution Width 16.8 % (11.5-14.5); Red Blood Cell (RBC) Count 2.91 mill/uL (4.20-5.40); White Blood Cell (WBC) Count 5.9 thou/uL (4.8-10.8)
[2022-03-19] MEDS: Levothyroxine Sodium 75 MCG TAB PO SCH (06:07)
[2022-03-19] MEDS: Calcitriol 0.25 MCG CAP PO SCH (09:59)
[2022-03-19] MEDS: Gabapentin 100 MG CAP PO SCH ×3 (09:59→21:29)
[2022-03-19] MEDS: Losartan 25 MG TAB PO SCH (10:02)
[2022-03-19] MEDS: Apixaban 2.5 MG TAB PO SCH ×2 (10:02→21:28)
[2022-03-19] MEDS ORDERED: Gentamicin Sulfate 80 MG in Premix Bag 1 BAG IVPB SCH ×2 (10:15→15:00)
[2022-03-19 12:14] LABS: Hematocrit 26.2 % (34.0-46.6); RBC Folate Test Component 1038 ng/mL (>498)
[2022-03-19] MEDS: Ferrous Sulfate 325 MG TAB PO SCH (12:53)
[2022-03-19] MEDS: cefTRIAXone\\ROCEPHIN 1 GM in Sodium Chloride 0.9% 100 ML IVPB SCH (15:28)
[2022-03-19] MEDS: Atorvastatin Calcium 20 MG TAB PO SCH (21:29)
[2022-03-19] MEDS: traZODone HCl 50 MG TAB PO SCH (21:30)
[2022-03-20 04:41] LABS: #Eosinphils 0.1 thou/uL (0.0-0.7); #Lymphocytes 1.5 thou/uL (1.20-3.40); #Monocytes 0.4 thou/uL (0.11-0.59); %Basophils 0.4 % (0.0-1.0); %Eosinophils 1.2 % (0.0-10.0); %Lymphocytes 25.2 % (21.0-51.0); %Monocytes 6.1 % (0.0-10.0); %Neutrophils 67.1 % (42.0-75.0); Hemoglobin 8.4 g/dL (12.0-16.0); Mean Corpuscular HGB CONC 31.4 g/dL (32.0-36.0); Mean Corpuscular Hemoglobin 29.2 pg (27.0-31.0); Mean Corpuscular Volume 93.1 fL (78.0-98.0); Mean Platelet Volume 8.3 fL (7.4-10.4); Platelet Count 135 thou/uL (130-400); RBC Distribution Width 15.5 % (11.5-14.5); Red Blood Cell (RBC) Count 2.86 mill/uL (4.20-5.40); White Blood Cell (WBC) Count 5.9 thou/uL (4.8-10.8)
[2022-03-20 05:03] LABS: ALT (SGPT) 14 U/L (8-55); AST (SGOT) 36 U/L (5-34); Albumin 2.9 g/dL (3.4-4.8); Alkaline Phosphatase 151 U/L (40-110); Anion Gap 11 mmol/L (10-20); BUN (Urea Nitrogen) 16 mg/dL (9.8-20.1); Bilirubin, Total 0.6 mg/dL (0.2-1.2); Calc. Creatinine Clearance 44 mL/min (70-130); Calcium 8.6 mg/dL (7.8-10.44); Carbon Dioxide 26 mmol/L (23-31); Chloride 101 mmol/L (98-107); Globulin 3.4 g/dL (2.4-3.5); Glucose 88 mg/dL (83-110); Potassium 3.4 mmol/L (3.5-5.1); Protein, Total 6.3 g/dL (5.8-8.1); Sodium 135 mmol/L (136-145)
[2022-03-20] MEDS: Levothyroxine Sodium 75 MCG TAB PO SCH (06:16)
[2022-03-20] MEDS: Losartan 25 MG TAB PO SCH (08:03)
[2022-03-20] MEDS: Apixaban 2.5 MG TAB PO SCH ×2 (08:03→19:48)
[2022-03-20] MEDS: Calcitriol 0.25 MCG CAP PO SCH (08:03)
[2022-03-20] MEDS: Gabapentin 100 MG CAP PO SCH ×3 (08:03→19:48)
[2022-03-20] MEDS ORDERED: Furosemide 40 MG TAB PO SCH (09:00)
[2022-03-20] MEDS ORDERED: Furosemide 20 MG TAB PO SCH (09:00)
[2022-03-20] MEDS ORDERED: Potassium Bicarbonate/Cit Ac 20 MEQ TAB PO SCH (09:45)
[2022-03-20] MEDS: Atorvastatin Calcium 20 MG TAB PO SCH (19:48)
[2022-03-20] MEDS: traZODone HCl 50 MG TAB PO SCH (19:56)
[2022-03-21 04:52] LABS: #Eosinphils 0.1 thou/uL (0.0-0.7); #Lymphocytes 1.4 thou/uL (1.20-3.40); #Monocytes 0.4 thou/uL (0.11-0.59); #Neutrophils 3.7 thou/uL (1.40-6.50); %Basophils 0.1 % (0.0-1.0); %Eosinophils 1.3 % (0.0-10.0); %Lymphocytes 25.5 % (21.0-51.0); %Monocytes 7.2 % (0.0-10.0); Hemoglobin 8.1 g/dL (12.0-16.0); Mean Corpuscular HGB CONC 32.7 g/dL (32.0-36.0); Mean Corpuscular Hemoglobin 30.3 pg (27.0-31.0); Mean Corpuscular Volume 92.7 fL (78.0-98.0); Mean Platelet Volume 8.1 fL (7.4-10.4); Platelet Count 146 thou/uL (130-400); RBC Distribution Width 16.2 % (11.5-14.5); Red Blood Cell (RBC) Count 2.66 mill/uL (4.20-5.40); White Blood Cell (WBC) Count 5.6 thou/uL (4.8-10.8)
[2022-03-21 05:14] LABS: ALT (SGPT) 13 U/L (8-55); AST (SGOT) 34 U/L (5-34); Alkaline Phosphatase 151 U/L (40-110); Anion Gap 13 mmol/L (10-20); BUN (Urea Nitrogen) 16 mg/dL (9.8-20.1); Bilirubin, Total 0.6 mg/dL (0.2-1.2); Calc. Creatinine Clearance 41 mL/min (70-130); Calcium 8.3 mg/dL (7.8-10.44); Carbon Dioxide 25 mmol/L (23-31); Chloride 99 mmol/L (98-107); Globulin 3.2 g/dL (2.4-3.5); Glucose 84 mg/dL (83-110); Potassium 3.5 mmol/L (3.5-5.1); Protein, Total 6.2 g/dL (5.8-8.1); Sodium 133 mmol/L (136-145)
[2022-03-21] MEDS: Levothyroxine Sodium 75 MCG TAB PO SCH (05:38)
[2022-03-21] MEDS ORDERED: Furosemide 20 MG TAB PO SCH (09:00)
[2022-03-21] MEDS ORDERED: Losartan 25 MG TAB PO SCH (09:00)
[2022-03-21] MEDS: Apixaban 2.5 MG TAB PO SCH (09:23)
[2022-03-21] MEDS: Gabapentin 100 MG CAP PO SCH (09:24)
[2022-03-21] MEDS: Calcitriol 0.25 MCG CAP PO SCH (09:25)
[2022-03-21] MEDS: Ferrous Sulfate 325 MG TAB PO SCH (09:32)
[2022-03-21 11:35] VITALS: BP 145/87; TEMP 98
[2022-03-21] MEDS ORDERED: Ferrous Sulfate 325 MG TAB PO SCH (12:00)
[2022-03-23] MEDS ORDERED: Ergocalciferol 1.25 MG(50,000 UNITS) CAP PO SCH (09:00)
== END 2022-03-21 15:15 | disposition home health service (06) | DRG 291 ==
LOC: ERS 12:28 → 2SW 16:12
PROVIDERS: ADMIT Family Medicine; ATTEND Family Medicine
DX: I13.0 Hypertensive heart and chronic kidney disease with heart failure and stage 1 through stage 4 chronic kidney disease, or unspecified chronic kidney disease (principal); Z51.5 Encounter for palliative care; Z66 Do not resuscitate; Z20.822 Contact with and (suspected) exposure to COVID-19; I50.33 Acute on chronic diastolic (congestive) heart failure; N39.0 Urinary tract infection, site not specified; N17.9 Acute kidney failure, unspecified; I47.2 Ventricular tachycardia; D63.1 Anemia in chronic kidney disease; I48.91 Unspecified atrial fibrillation; M10.9 Gout, unspecified; E03.9 Hypothyroidism, unspecified; E78.5 Hyperlipidemia, unspecified; F32.A Depression, unspecified; N18.30 Chronic kidney disease, stage 3 unspecified; K21.9 Gastro-esophageal reflux disease without esophagitis; R19.7 Diarrhea, unspecified; B96.20 Unspecified Escherichia coli [E. coli] as the cause of diseases classified elsewhere; I49.3 Ventricular premature depolarization; Z95.818 Presence of other cardiac implants and grafts; Z86.16 Personal history of COVID-19; Z80.49 Family history of malignant neoplasm of other genital organs; Z83.3 Family history of diabetes mellitus; Z82.49 Family history of ischemic heart disease and other diseases of the circulatory system; Z83.6 Family history of other diseases of the respiratory system; Z83.79 Family history of other diseases of the digestive system; Z79.899 Other long term (current) drug therapy; Z90.49 Acquired absence of other specified parts of digestive tract; Z98.890 Other specified postprocedural states; Z90.710 Acquired absence of both cervix and uterus; Z98.84 Bariatric surgery status
CPT/HCPCS: 36415; 36416; 70450; 71045; 72125; 80053; 81003; 81015; 82553; 82607; 82728; 82747; 83540; 83550; 83630; 83880; 84484; 85025; 85046; 87015; 87045; 87046; 87077; 87081; 87086; 87186; 87206; 87338; 87427; 87449; 87798; 93005; 94760; 96374; 96375; 97139; J0696; J1580; J1940; J2270; J3490; U0003; U0005

== ENCOUNTER 2022-03-30 17:02 | Inpatient (IN) | payer MEDICARE ==
[2022-03-30] MEDS ORDERED: Ondansetron ODT 4 MG TAB PO PRN (19:52)
[2022-03-30 20:20] VITALS: BMI 26.4
[2022-03-30 20:25] LABS: #Eosinphils 0.1 thou/uL (0.0-0.7); #Lymphocytes 1.4 thou/uL (1.20-3.40); #Monocytes 0.5 thou/uL (0.11-0.59); #Neutrophils 5.7 thou/uL (1.40-6.50); %Basophils 0.2 % (0.0-1.0); %Lymphocytes 18.4 % (21.0-51.0); %Monocytes 6.3 % (0.0-10.0); %Neutrophils 74.1 % (42.0-75.0); Hemoglobin 8.9 g/dL (12.0-16.0); Mean Corpuscular HGB CONC 30.6 g/dL (32.0-36.0); Mean Corpuscular Hemoglobin 29.5 pg (27.0-31.0); Mean Corpuscular Volume 96.3 fL (78.0-98.0); Mean Platelet Volume 7.9 fL (7.4-10.4); Platelet Count 191 thou/uL (130-400); RBC Distribution Width 17.7 % (11.5-14.5); Red Blood Cell (RBC) Count 3.03 mill/uL (4.20-5.40); White Blood Cell (WBC) Count 7.7 thou/uL (4.8-10.8)
[2022-03-30 20:36] LABS: INR-International Normal Ratio 1.2; Prothrombin Time 15.5 sec (12.0-14.7)
[2022-03-30 20:48] LABS: ALT (SGPT) 21 U/L (8-55); AST (SGOT) 44 U/L (5-34); Albumin 3.5 g/dL (3.4-4.8); Alkaline Phosphatase 192 U/L (40-110); Anion Gap 12 mmol/L (10-20); BUN (Urea Nitrogen) 20 mg/dL (9.8-20.1); Bilirubin, Total 0.7 mg/dL (0.2-1.2); Calc. Creatinine Clearance 35 mL/min (70-130); Calcium 8.5 mg/dL (7.8-10.44); Carbon Dioxide 24 mmol/L (23-31); Chloride 107 mmol/L (98-107); Globulin 3.8 g/dL (2.4-3.5); Glucose 122 mg/dL (83-110); Magnesium 1.8 mg/dL (1.6-2.6); Protein, Total 7.3 g/dL (5.8-8.1); Sodium 139 mmol/L (136-145)
[2022-03-30] MEDS ORDERED: Gabapentin 100 MG CAP PO SCH ×3 (21:00→23:00)
[2022-03-30] MEDS: Atorvastatin Calcium 20 MG TAB PO SCH (21:27)
[2022-03-30] MEDS: Apixaban 2.5 MG TAB PO SCH (21:27)
[2022-03-30] MEDS: traZODone HCl 50 MG TAB PO SCH (21:28)
[2022-03-30] MEDS ORDERED: Loratadine 10 MG TAB PO PRN (21:48)
[2022-03-30] MEDS ORDERED: Furosemide 40 MG/4 ML VIAL SLOW IVP SCH (22:00)
[2022-03-30] MEDS ORDERED: Estrogens, Conjugated 30 GM TUBE VAG SCH (22:30)
[2022-03-30] MEDS ORDERED: Piperacillin/Tazobactam 3.375 GM in Sodium Chloride 0.9% 100 ML IVPB SCH (23:00)
[2022-03-30 23:29] LABS: Iron 29 ug/dL (50-170); Iron Binding Capacity, Total 408 mcg/dL (265-497); Iron Binding Capacity, Total 413 mcg/dL (265-497); Phosphorus 3.7 mg/dL (2.3-4.7)
[2022-03-30 23:48] LABS: Ferritin 36.6 ng/mL (10-291); Thyroid Stimulating Hormone 5.7296 uIU/mL (0.35-4.94)
[2022-03-30] MEDS ORDERED: Piperacillin/Tazobactam 2.25 GM in Sodium Chloride 0.9% 100 ML IVPB SCH (23:59)
[2022-03-31 02:14] LABS: Bacteria/HPF None Seen HPF (None Seen); Bilirubin Negative (Negative); Blood, Urine 1+ (Negative); Clarity Clear (Clear); Glucose, Urine (Dipstick) Normal (Negative); Ketone, Urine Negative (Negative); Leukocyte Negative Leu/uL (Negative); Nitrite Negative (Negative); Protein, Urine (Dipstick) Negative (Neg-Trace); Specific Gravity, Urine 1.006 (1.002-1.036); Squamous Epithelial 0-3 HPF (0-3); Urobilinogen Normal mg/dL (Less than 2); WBC/HPF 0-3 HPF (0-3); pH, Urine 5.5 (5.0-9.0)
[2022-03-31] MEDS ORDERED: Piperacillin/Tazobactam 3.375 GM in Sodium Chloride 0.9% 100 ML IVPB SCH (04:00)
[2022-03-31] MEDS: Furosemide 40 MG/4 ML VIAL SLOW IVP SCH ×2 (05:39→15:07)
[2022-03-31] MEDS ORDERED: Levothyroxine Sodium 50 MCG TAB PO SCH (06:00)
[2022-03-31] MEDS ORDERED: Levothyroxine Sodium 75 MCG TAB PO SCH (06:00)
[2022-03-31] MEDS ORDERED: Levothyroxine Sodium 100 MCG TAB PO SCH (06:00)
[2022-03-31 08:34] LABS: #Eosinphils 0.1 thou/uL (0.0-0.7); #Lymphocytes 1.5 thou/uL (1.20-3.40); #Monocytes 0.4 thou/uL (0.11-0.59); #Neutrophils 4.3 thou/uL (1.40-6.50); %Basophils 0.4 % (0.0-1.0); %Lymphocytes 24.1 % (21.0-51.0); %Monocytes 6.1 % (0.0-10.0); %Neutrophils 68.5 % (42.0-75.0); Hemoglobin 8.8 g/dL (12.0-16.0); Mean Corpuscular HGB CONC 32.2 g/dL (32.0-36.0); Mean Corpuscular Hemoglobin 30.7 pg (27.0-31.0); Mean Corpuscular Volume 95.5 fL (78.0-98.0); Mean Platelet Volume 7.7 fL (7.4-10.4); Platelet Count 178 thou/uL (130-400); RBC Distribution Width 17.6 % (11.5-14.5); Red Blood Cell (RBC) Count 2.86 mill/uL (4.20-5.40); White Blood Cell (WBC) Count 6.2 thou/uL (4.8-10.8)
[2022-03-31 08:51] LABS: Anion Gap 14 mmol/L (10-20); BUN (Urea Nitrogen) 18 mg/dL (9.8-20.1); Calc. Creatinine Clearance 41 mL/min (70-130); Calcium 8.8 mg/dL (7.8-10.44); Carbon Dioxide 24 mmol/L (23-31); Chloride 103 mmol/L (98-107); Glucose 80 mg/dL (83-110); Potassium 3.5 mmol/L (3.5-5.1); Sodium 137 mmol/L (136-145)
[2022-03-31 08:58] LABS: Free T4 (Free Thyroxine) 1.01 ng/dL (0.70-1.48)
[2022-03-31] MEDS: Losartan 25 MG TAB PO SCH (08:58)
[2022-03-31] MEDS: Magnesium Oxide 400 MG TAB PO SCH ×2 (08:58→21:17)
[2022-03-31] MEDS: Apixaban 2.5 MG TAB PO SCH ×2 (08:58→21:16)
[2022-03-31] MEDS: Gabapentin 100 MG CAP PO SCH ×3 (08:58→21:17)
[2022-03-31] MEDS: Ascorbic Acid 500 mg Chewable Tablet PO SCH (08:58)
[2022-03-31] MEDS: Calcitriol 0.25 MCG CAP PO SCH (08:59)
[2022-03-31] MEDS: Ferrous Fumarate 324 MG TAB PO SCH (09:00)
[2022-03-31] MEDS: Amlodipine 5 MG TAB PO SCH (10:39)
[2022-03-31 11:59] LABS: SARS-CoV-2 PCR by NAA Not Detected (NotDetected)
[2022-03-31] MEDS ORDERED: Estrogens, Conjugated 30 GM TUBE VAG SCH (21:00)
[2022-03-31] MEDS: Atorvastatin Calcium 20 MG TAB PO SCH (21:16)
[2022-03-31] MEDS: traZODone HCl 50 MG TAB PO SCH (21:17)
[2022-04-01] MEDS: Furosemide 40 MG/4 ML VIAL SLOW IVP SCH (05:24)
[2022-04-01] MEDS ORDERED: Levothyroxine Sodium 75 MCG TAB PO SCH (06:00)
[2022-04-01 07:17] LABS: Anion Gap 11 mmol/L (10-20); BUN (Urea Nitrogen) 18 mg/dL (9.8-20.1); Calc. Creatinine Clearance 32 mL/min (70-130); Calcium 8.6 mg/dL (7.8-10.44); Carbon Dioxide 27 mmol/L (23-31); Chloride 102 mmol/L (98-107); Glucose 91 mg/dL (83-110); Potassium 3.3 mmol/L (3.5-5.1); Sodium 137 mmol/L (136-145)
[2022-04-01] MEDS ORDERED: Potassium Chloride 20 MEQ TAB PO SCH (07:30)
[2022-04-01 07:48] VITALS: TEMP 97.9
[2022-04-01] MEDS: Losartan 25 MG TAB PO SCH (09:21)
[2022-04-01] MEDS: Ascorbic Acid 500 mg Chewable Tablet PO SCH (09:21)
[2022-04-01] MEDS: Ferrous Fumarate 324 MG TAB PO SCH (09:21)
[2022-04-01] MEDS: Amlodipine 5 MG TAB PO SCH (09:22)
[2022-04-01] MEDS: Apixaban 2.5 MG TAB PO SCH (09:22)
[2022-04-01] MEDS: Calcitriol 0.25 MCG CAP PO SCH (09:24)
[2022-04-01 09:25] VITALS: BP 156/96
[2022-04-01] MEDS: Magnesium Oxide 400 MG TAB PO SCH (09:25)
[2022-04-01] MEDS: Gabapentin 100 MG CAP PO SCH (09:29)
[2022-04-01] MEDS ORDERED: Loratadine 10 MG TAB PO PRN (10:00)
[2022-04-01] MEDS ORDERED: Ferrous Sulfate 325 MG TAB PO SCH (12:00)
[2022-04-02] MEDS ORDERED: Furosemide 40 MG TAB PO SCH (09:00)
[2022-04-06] MEDS ORDERED: Ergocalciferol 1.25 MG(50,000 UNITS) CAP PO SCH (09:00)
== END 2022-04-01 14:00 | disposition home or self-care (01) | DRG 291 ==
LOC: 2NO 17:02
PROVIDERS: ADMIT Family Medicine; ATTEND Family Medicine
DX: I13.0 Hypertensive heart and chronic kidney disease with heart failure and stage 1 through stage 4 chronic kidney disease, or unspecified chronic kidney disease (principal); I50.33 Acute on chronic diastolic (congestive) heart failure; N39.0 Urinary tract infection, site not specified; N17.9 Acute kidney failure, unspecified; Z66 Do not resuscitate; I27.20 Pulmonary hypertension, unspecified; I48.91 Unspecified atrial fibrillation; D63.1 Anemia in chronic kidney disease; I07.1 Rheumatic tricuspid insufficiency; N18.32 Chronic kidney disease, stage 3b; F32.A Depression, unspecified; G47.33 Obstructive sleep apnea (adult) (pediatric); E03.9 Hypothyroidism, unspecified; M10.9 Gout, unspecified; R30.0 Dysuria; Z90.710 Acquired absence of both cervix and uterus; Z82.49 Family history of ischemic heart disease and other diseases of the circulatory system; Z80.8 Family history of malignant neoplasm of other organs or systems; Z84.89 Family history of other specified conditions; Z79.890 Hormone replacement therapy
CPT/HCPCS: 36415; 71046; 80048; 80053; 81001; 82607; 82728; 82746; 83540; 83550; 83735; 83880; 84100; 84439; 84443; 84481; 84484; 85025; 85060; 85610; 87086; 93005; 93010; 93798; J1940; J2543; J3490; U0003; U0005

== ENCOUNTER 2022-04-17 08:58 | Inpatient (IN) | payer MEDICARE ==
[2022-04-17 09:51] LABS: #Eosinphils 0.1 thou/uL (0.0-0.7); #Lymphocytes 1.3 thou/uL (1.20-3.40); #Monocytes 0.5 thou/uL (0.11-0.59); #Neutrophils 4.7 thou/uL (1.40-6.50); %Basophils 0.5 % (0.0-1.0); %Eosinophils 1.4 % (0.0-10.0); %Lymphocytes 20.1 % (21.0-51.0); %Monocytes 7.9 % (0.0-10.0); %Neutrophils 70.1 % (42.0-75.0); Hemoglobin 10.2 g/dL (12.0-16.0); Mean Corpuscular HGB CONC 31.3 g/dL (32.0-36.0); Mean Corpuscular Hemoglobin 30.8 pg (27.0-31.0); Mean Corpuscular Volume 98.5 fL (78.0-98.0); Mean Platelet Volume 8.7 fL (7.4-10.4); Platelet Count 131 thou/uL (130-400); RBC Distribution Width 16.8 % (11.5-14.5); Red Blood Cell (RBC) Count 3.31 mill/uL (4.20-5.40); White Blood Cell (WBC) Count 6.7 thou/uL (4.8-10.8)
[2022-04-17 10:06] LABS: ALT (SGPT) 20 U/L (8-55); AST (SGOT) 40 U/L (5-34); Albumin 3.6 g/dL (3.4-4.8); Alkaline Phosphatase 199 U/L (40-110); Anion Gap 15 mmol/L (10-20); BUN (Urea Nitrogen) 32 mg/dL (9.8-20.1); Bilirubin, Total 0.9 mg/dL (0.2-1.2); Calc. Creatinine Clearance 0 mL/min (70-130); Calcium 8.5 mg/dL (7.8-10.44); Carbon Dioxide 25 mmol/L (23-31); Chloride 103 mmol/L (98-107); Globulin 3.7 g/dL (2.4-3.5); Glucose 100 mg/dL (83-110); Magnesium 1.8 mg/dL (1.6-2.6); Potassium 3.5 mmol/L (3.5-5.1); Protein, Total 7.3 g/dL (5.8-8.1); Sodium 139 mmol/L (136-145)
[2022-04-17 10:28] LABS: CKMB 1.8 ng/mL (0-6.6)
[2022-04-17] MEDS ORDERED: Furosemide 40 MG/4 ML VIAL ONE (12:42)
[2022-04-17] MEDS ORDERED: Acetaminophen 325 MG TAB PO PRN (12:55)
[2022-04-17] MEDS ORDERED: Melatonin 3 MG TAB PO PRN (13:09)
[2022-04-17 13:20] VITALS: BMI 27.6
[2022-04-17 14:24] LABS: Troponin I 0.064 ng/mL (< 0.028)
[2022-04-17 14:49] LABS: Bacteria/HPF None Seen HPF (None Seen); Bilirubin Negative (Negative); Blood, Urine Negative (Negative); Clarity Clear (Clear); Glucose, Urine (Dipstick) Normal (Negative); Ketone, Urine Negative (Negative); Leukocyte Negative Leu/uL (Negative); Nitrite Negative (Negative); Protein, Urine (Dipstick) Negative (Neg-Trace); RBC/HPF None Seen HPF (0-3); Specific Gravity, Urine 1.012 (1.002-1.036); Squamous Epithelial 0-3 HPF (0-3); Urobilinogen Normal mg/dL (Less than 2); WBC/HPF 0-3 HPF (0-3); pH, Urine 5.5 (5.0-9.0)
[2022-04-17] MEDS ORDERED: Furosemide 40 MG/4 ML VIAL SLOW IVP SCH (16:00)
[2022-04-17] MEDS: Gabapentin 100 MG CAP PO SCH ×2 (16:26→20:31)
[2022-04-17] MEDS: Apixaban 2.5 MG TAB PO SCH (20:33)
[2022-04-17] MEDS: Atorvastatin Calcium 20 MG TAB PO SCH (20:33)
[2022-04-17] MEDS ORDERED: traZODone HCl 50 MG TAB PO SCH (21:00)
[2022-04-18 05:09] LABS: #Eosinphils 0.1 thou/uL (0.0-0.7); #Lymphocytes 1.3 thou/uL (1.20-3.40); #Monocytes 0.4 thou/uL (0.11-0.59); #Neutrophils 3.2 thou/uL (1.40-6.50); %Basophils 0.7 % (0.0-1.0); %Eosinophils 1.3 % (0.0-10.0); %Lymphocytes 26.9 % (21.0-51.0); %Monocytes 7.1 % (0.0-10.0); %Neutrophils 63.9 % (42.0-75.0); Hemoglobin 9.1 g/dL (12.0-16.0); Mean Corpuscular HGB CONC 32.1 g/dL (32.0-36.0); Mean Corpuscular Volume 96.6 fL (78.0-98.0); Mean Platelet Volume 8.4 fL (7.4-10.4); Platelet Count 131 thou/uL (130-400); RBC Distribution Width 16.7 % (11.5-14.5); Red Blood Cell (RBC) Count 2.94 mill/uL (4.20-5.40); White Blood Cell (WBC) Count 4.9 thou/uL (4.8-10.8)
[2022-04-18 05:32] LABS: ALT (SGPT) 15 U/L (8-55); AST (SGOT) 33 U/L (5-34); Albumin 3.2 g/dL (3.4-4.8); Alkaline Phosphatase 162 U/L (40-110); Anion Gap 14 mmol/L (10-20); BUN (Urea Nitrogen) 37 mg/dL (9.8-20.1); Calc. Creatinine Clearance 24 mL/min (70-130); Calcium 8.9 mg/dL (7.8-10.44); Carbon Dioxide 25 mmol/L (23-31); Chloride 104 mmol/L (98-107); Globulin 3.5 g/dL (2.4-3.5); Glucose 83 mg/dL (83-110); Potassium 3.6 mmol/L (3.5-5.1); Protein, Total 6.7 g/dL (5.8-8.1); Sodium 139 mmol/L (136-145)
[2022-04-18] MEDS: Levothyroxine Sodium 75 MCG TAB PO SCH (05:53)
[2022-04-18] MEDS ORDERED: Levothyroxine Sodium 50 MCG TAB PO SCH (06:00)
[2022-04-18] MEDS: Apixaban 2.5 MG TAB PO SCH ×2 (08:48→20:57)
[2022-04-18] MEDS: Gabapentin 100 MG CAP PO SCH (08:48)
[2022-04-18] MEDS: Amlodipine 5 MG TAB PO SCH (08:48)
[2022-04-18] MEDS: Vancomycin 25 MG/ML Oral SOLN PO SCH ×3 (08:50→20:58)
[2022-04-18] MEDS ORDERED: Losartan 25 MG TAB PO SCH (09:00)
[2022-04-18] MEDS ORDERED: Torsemide 20 MG TAB PO SCH (09:15)
[2022-04-18] MEDS ORDERED: traZODone HCl 50 MG TAB PO PRN (09:39)
[2022-04-18] MEDS ORDERED: Furosemide 40 MG/4 ML VIAL SLOW IVP SCH (14:00)
[2022-04-18 14:54] LABS: Campy jejuni + coli by PCR Negative (Negative); STEC Shiga Toxin 1+2 Negative (Negative); Salmonella spp. by PCR Negative (Negative); Shigella spp + EIEC by PCR Negative (Negative)
[2022-04-18] MEDS: Atorvastatin Calcium 20 MG TAB PO SCH (20:57)
[2022-04-19] MEDS: Vancomycin 25 MG/ML Oral SOLN PO SCH ×4 (03:19→21:57)
[2022-04-19 05:28] LABS: #Eosinphils 0.1 thou/uL (0.0-0.7); #Lymphocytes 1.5 thou/uL (1.20-3.40); #Monocytes 0.5 thou/uL (0.11-0.59); #Neutrophils 3.8 thou/uL (1.40-6.50); %Basophils 0.2 % (0.0-1.0); %Eosinophils 1.2 % (0.0-10.0); %Lymphocytes 25.3 % (21.0-51.0); %Monocytes 8.2 % (0.0-10.0); %Neutrophils 65.1 % (42.0-75.0); Hemoglobin 9.3 g/dL (12.0-16.0); Mean Corpuscular HGB CONC 31.8 g/dL (32.0-36.0); Mean Corpuscular Hemoglobin 30.6 pg (27.0-31.0); Mean Platelet Volume 8.3 fL (7.4-10.4); Platelet Count 131 thou/uL (130-400); RBC Distribution Width 16.6 % (11.5-14.5); Red Blood Cell (RBC) Count 3.05 mill/uL (4.20-5.40); White Blood Cell (WBC) Count 5.8 thou/uL (4.8-10.8)
[2022-04-19 05:55] LABS: ALT (SGPT) 15 U/L (8-55); AST (SGOT) 32 U/L (5-34); Albumin 3.2 g/dL (3.4-4.8); Alkaline Phosphatase 156 U/L (40-110); Anion Gap 13 mmol/L (10-20); BUN (Urea Nitrogen) 35 mg/dL (9.8-20.1); Bilirubin, Total 0.9 mg/dL (0.2-1.2); Calc. Creatinine Clearance 27 mL/min (70-130); Calcium 8.7 mg/dL (7.8-10.44); Carbon Dioxide 26 mmol/L (23-31); Chloride 104 mmol/L (98-107); Globulin 3.5 g/dL (2.4-3.5); Glucose 89 mg/dL (83-110); Potassium 3.6 mmol/L (3.5-5.1); Protein, Total 6.7 g/dL (5.8-8.1); Sodium 139 mmol/L (136-145)
[2022-04-19] MEDS: Levothyroxine Sodium 75 MCG TAB PO SCH (06:20)
[2022-04-19] MEDS ORDERED: Torsemide 20 MG TAB PO SCH (09:00)
[2022-04-19] MEDS: Torsemide 10 MG TAB PO SCH (09:37)
[2022-04-19] MEDS: Apixaban 2.5 MG TAB PO SCH ×2 (09:37→21:57)
[2022-04-19] MEDS: Amlodipine 5 MG TAB PO SCH (09:38)
[2022-04-19] MEDS: Ferrous Sulfate 325 MG TAB PO SCH (15:50)
[2022-04-19] MEDS: Atorvastatin Calcium 20 MG TAB PO SCH (21:57)
[2022-04-20] MEDS: Vancomycin 25 MG/ML Oral SOLN PO SCH ×4 (04:37→19:55)
[2022-04-20] MEDS: Levothyroxine Sodium 75 MCG TAB PO SCH (04:37)
[2022-04-20 05:44] LABS: #Eosinphils 0.1 thou/uL (0.0-0.7); #Lymphocytes 1.4 thou/uL (1.20-3.40); #Monocytes 0.5 thou/uL (0.11-0.59); #Neutrophils 5.2 thou/uL (1.40-6.50); %Basophils 0.4 % (0.0-1.0); %Eosinophils 0.9 % (0.0-10.0); %Lymphocytes 19.7 % (21.0-51.0); Mean Corpuscular HGB CONC 31.8 g/dL (32.0-36.0); Mean Corpuscular Hemoglobin 30.8 pg (27.0-31.0); Mean Platelet Volume 8.4 fL (7.4-10.4); Platelet Count 139 thou/uL (130-400); RBC Distribution Width 16.4 % (11.5-14.5); Red Blood Cell (RBC) Count 3.24 mill/uL (4.20-5.40); White Blood Cell (WBC) Count 7.3 thou/uL (4.8-10.8)
[2022-04-20 06:13] LABS: ALT (SGPT) 18 U/L (8-55); AST (SGOT) 37 U/L (5-34); Albumin 3.5 g/dL (3.4-4.8); Alkaline Phosphatase 182 U/L (40-110); Anion Gap 14 mmol/L (10-20); BUN (Urea Nitrogen) 31 mg/dL (9.8-20.1); Bilirubin, Total 0.8 mg/dL (0.2-1.2); Calc. Creatinine Clearance 34 mL/min (70-130); Calcium 9.3 mg/dL (7.8-10.44); Carbon Dioxide 25 mmol/L (23-31); Chloride 103 mmol/L (98-107); Globulin 3.8 g/dL (2.4-3.5); Glucose 91 mg/dL (83-110); Potassium 3.6 mmol/L (3.5-5.1); Protein, Total 7.3 g/dL (5.8-8.1); Sodium 138 mmol/L (136-145)
[2022-04-20] MEDS: Amlodipine 5 MG TAB PO SCH (08:21)
[2022-04-20] MEDS: Apixaban 2.5 MG TAB PO SCH ×2 (08:22→19:54)
[2022-04-20] MEDS: Torsemide 10 MG TAB PO SCH (08:23)
[2022-04-20 14:13] LABS: Fatty Acid Droplets Normal (.); Neutral Fats And/Or Soaps Normal (.)
[2022-04-20 17:13] LABS: Albumin-Ur 57.6 % (.); Beta-Ur 8.8 % (.); Gamma-Ur 16.6 % (.); M-Spike,% Not Observed % (Not Observed); Protein, Urine 26.7 mg/dL (Not Estab.)
[2022-04-20 17:13] LABS: A/G Ratio 0.9 (0.7-1.7); Albumin 3.1 g/dL (2.9-4.4); Alpha 1 0.3 g/dL (0.0-0.4); Alpha 2 0.6 g/dL (0.4-1.0); Beta 0.9 g/dL (0.7-1.3); Gamma 1.5 g/dL (0.4-1.8); Globulin, Total 3.4 g/dL (2.2-3.9); M-Spike Not Observed g/dL (Not Observed)
[2022-04-20] MEDS: Atorvastatin Calcium 20 MG TAB PO SCH (19:55)
[2022-04-20] MEDS ORDERED: Ondansetron ODT 4 MG TAB SL SCH (23:59)
[2022-04-21] MEDS: Vancomycin 25 MG/ML Oral SOLN PO SCH ×2 (04:00→10:15)
[2022-04-21 05:07] LABS: #Lymphocytes 1.5 thou/uL (1.20-3.40); #Monocytes 0.5 thou/uL (0.11-0.59); #Neutrophils 4.7 thou/uL (1.40-6.50); %Basophils 0.2 % (0.0-1.0); %Eosinophils 0.6 % (0.0-10.0); %Lymphocytes 22.6 % (21.0-51.0); %Monocytes 7.4 % (0.0-10.0); %Neutrophils 69.1 % (42.0-75.0); Hemoglobin 9.3 g/dL (12.0-16.0); Mean Corpuscular HGB CONC 31.6 g/dL (32.0-36.0); Mean Corpuscular Hemoglobin 30.2 pg (27.0-31.0); Mean Corpuscular Volume 95.8 fL (78.0-98.0); Mean Platelet Volume 8.1 fL (7.4-10.4); Platelet Count 137 thou/uL (130-400); RBC Distribution Width 16.5 % (11.5-14.5); Red Blood Cell (RBC) Count 3.09 mill/uL (4.20-5.40); White Blood Cell (WBC) Count 6.7 thou/uL (4.8-10.8)
[2022-04-21 05:29] LABS: ALT (SGPT) 17 U/L (8-55); AST (SGOT) 36 U/L (5-34); Albumin 3.3 g/dL (3.4-4.8); Alkaline Phosphatase 162 U/L (40-110); Anion Gap 14 mmol/L (10-20); BUN (Urea Nitrogen) 24 mg/dL (9.8-20.1); Bilirubin, Total 1.1 mg/dL (0.2-1.2); Calc. Creatinine Clearance 40 mL/min (70-130); Carbon Dioxide 23 mmol/L (23-31); Chloride 103 mmol/L (98-107); Globulin 3.6 g/dL (2.4-3.5); Glucose 89 mg/dL (83-110); Potassium 3.7 mmol/L (3.5-5.1); Protein, Total 6.9 g/dL (5.8-8.1); Sodium 136 mmol/L (136-145)
[2022-04-21] MEDS: Levothyroxine Sodium 75 MCG TAB PO SCH (05:39)
[2022-04-21] MEDS: Amlodipine 5 MG TAB PO SCH (10:05)
[2022-04-21] MEDS: Apixaban 2.5 MG TAB PO SCH (10:06)
[2022-04-21] MEDS: Torsemide 10 MG TAB PO SCH (10:07)
[2022-04-21] MEDS ORDERED: Vancomycin 25 MG/ML Oral SOLN PO SCH ×2 (10:15→16:00)
[2022-04-21] MEDS: Ferrous Sulfate 325 MG TAB PO SCH (11:37)
[2022-04-21 12:12] VITALS: BP 148/78; TEMP 98.2
== END 2022-04-21 12:39 | DRG 371 ==
LOC: ERS 08:58 → 2SW 11:08 → OBSVTOIN 04-18 09:17
PROVIDERS: ADMIT Student in an Organized Health Care Education/Training Program; ATTEND Student in an Organized Health Care Education/Training Program
PROC: 8E0ZXY6 Isolation (ICD-10-PCS; principal; 2022-04-18)
DX: A04.72 Enterocolitis due to Clostridium difficile, not specified as recurrent (principal); I50.33 Acute on chronic diastolic (congestive) heart failure; G93.49 Other encephalopathy; N17.9 Acute kidney failure, unspecified; Z20.822 Contact with and (suspected) exposure to COVID-19; F03.90 Unspecified dementia, unspecified severity, without behavioral disturbance, psychotic disturbance, mood disturbance, and anxiety; I27.20 Pulmonary hypertension, unspecified; E03.9 Hypothyroidism, unspecified; N18.32 Chronic kidney disease, stage 3b; Z60.2 Problems related to living alone; M10.9 Gout, unspecified; G47.00 Insomnia, unspecified; F32.9 Major depressive disorder, single episode, unspecified; R74.01 Elevation of levels of liver transaminase levels; D50.9 Iron deficiency anemia, unspecified; R29.6 Repeated falls; R77.8 Other specified abnormalities of plasma proteins; Z95.818 Presence of other cardiac implants and grafts; Z79.01 Long term (current) use of anticoagulants; Z91.81 History of falling; Z91.19 Patient's noncompliance with other medical treatment and regimen; Z79.899 Other long term (current) drug therapy; Z79.890 Hormone replacement therapy; Z98.890 Other specified postprocedural states; Z82.49 Family history of ischemic heart disease and other diseases of the circulatory system; Z80.49 Family history of malignant neoplasm of other genital organs; Z83.49 Family history of other endocrine, nutritional and metabolic diseases; Z83.3 Family history of diabetes mellitus
CPT/HCPCS: 36415; 70450; 71045; 80053; 81001; 82550; 82553; 82705; 83630; 83735; 83880; 84165; 84166; 84443; 84484; 85025; 87324; 87449; 87493; 87505; 93005; 93306; 94760; 96374; G0378; J1940; Q0162; U0003; U0005

== ENCOUNTER 2022-05-07 12:31 | Inpatient (IN) | payer MEDICARE ==
[2022-05-07 13:50] LABS: Hemoglobin 10.2 g/dL (12.0-16.0); Mean Corpuscular HGB CONC 31.6 g/dL (32.0-36.0); Mean Corpuscular Hemoglobin 30.6 pg (27.0-31.0); Mean Corpuscular Volume 96.7 fL (78.0-98.0); Mean Platelet Volume 8.7 fL (7.4-10.4); Platelet Count 155 thou/uL (130-400); Red Blood Cell (RBC) Count 3.35 mill/uL (4.20-5.40); White Blood Cell (WBC) Count 7.5 thou/uL (4.8-10.8)
[2022-05-07] MEDS ORDERED: Furosemide 40 MG/4 ML VIAL ONE (14:05)
[2022-05-07] MEDS ORDERED: Aspirin Chewable 81 MG TAB ONE (14:05)
[2022-05-07] MEDS ORDERED: Nitroglycerin 2% Ointment 1 INCH/1 GM Packet ONE (14:05)
[2022-05-07 14:14] LABS: ALT (SGPT) 13 U/L (8-55); AST (SGOT) 32 U/L (5-34); Albumin 3.5 g/dL (3.4-4.8); Alkaline Phosphatase 168 U/L (40-110); Anion Gap 18 mmol/L (10-20); BUN (Urea Nitrogen) 31 mg/dL (9.8-20.1); Bilirubin, Total 1.1 mg/dL (0.2-1.2); Calc. Creatinine Clearance 0 mL/min (70-130); Carbon Dioxide 23 mmol/L (23-31); Chloride 103 mmol/L (98-107); Estimated GFR 24; Globulin 3.9 g/dL (2.4-3.5); Glucose 88 mg/dL (83-110); Potassium 3.7 mmol/L (3.5-5.1); Protein, Total 7.4 g/dL (5.8-8.1); Sodium 140 mmol/L (136-145)
[2022-05-07 14:20] LABS: Eosinophils 1 % (0-10); Lymphocytes 18 % (21-51); MDiff Complete? YES; Monocytes 7 % (0-10); Neutrophil 65 % (42-75); Ovalocytes SLIGHT = 2-5 cells (100X) (0-1/hpf); Platelet Morphology Comment Appears Adequate; Polychromasia SLIGHT = 2-3 cells (100X) (0-2/hpf); Reactive Lymphocytes 5 % (0-10)
[2022-05-07] MEDS ORDERED: Acetaminophen 325 MG TAB PO PRN (15:37)
[2022-05-07 17:11] LABS: SARS-CoV-2 NAA Rapid Test Not Detected (NotDetected)
[2022-05-07] MEDS ORDERED: Furosemide 40 MG/4 ML VIAL SLOW IVP SCH (21:00)
[2022-05-07 21:35] VITALS: BMI 30.1
[2022-05-07] MEDS: Melatonin 3 MG TAB PO PRN (22:13)
[2022-05-07] MEDS: Gabapentin 100 MG CAP PO SCH (22:13)
[2022-05-07] MEDS: Apixaban 2.5 MG TAB PO SCH (22:14)
[2022-05-07] MEDS: Atorvastatin Calcium 20 MG TAB PO SCH (22:14)
[2022-05-08 04:15] LABS: #Eosinphils 0.1 thou/uL (0.0-0.7); #Lymphocytes 1.4 thou/uL (1.20-3.40); #Monocytes 0.4 thou/uL (0.11-0.59); #Neutrophils 3.9 thou/uL (1.40-6.50); %Basophils 0.4 % (0.0-1.0); %Eosinophils 1.9 % (0.0-10.0); %Lymphocytes 24.4 % (21.0-51.0); %Monocytes 7.1 % (0.0-10.0); %Neutrophils 66.3 % (42.0-75.0); Hemoglobin 10.1 g/dL (12.0-16.0); Mean Corpuscular HGB CONC 31.1 g/dL (32.0-36.0); Mean Corpuscular Hemoglobin 30.2 pg (27.0-31.0); Mean Corpuscular Volume 97.1 fL (78.0-98.0); Mean Platelet Volume 8.8 fL (7.4-10.4); Platelet Count 150 thou/uL (130-400); RBC Distribution Width 15.9 % (11.5-14.5); Red Blood Cell (RBC) Count 3.34 mill/uL (4.20-5.40); White Blood Cell (WBC) Count 5.8 thou/uL (4.8-10.8)
[2022-05-08 04:41] LABS: Anion Gap 16 mmol/L (10-20); BUN (Urea Nitrogen) 33 mg/dL (9.8-20.1); Calc. Creatinine Clearance 27 mL/min (70-130); Calcium 9.2 mg/dL (7.8-10.44); Carbon Dioxide 20 mmol/L (23-31); Chloride 104 mmol/L (98-107); Estimated GFR 25; Glucose 76 mg/dL (83-110); Potassium 3.4 mmol/L (3.5-5.1); Sodium 137 mmol/L (136-145)
[2022-05-08] MEDS: Levothyroxine Sodium 75 MCG TAB PO SCH (06:17)
[2022-05-08] MEDS ORDERED: Potassium Chloride 20 MEQ TAB PO SCH (08:15)
[2022-05-08] MEDS: Gabapentin 100 MG CAP PO SCH ×3 (09:38→21:16)
[2022-05-08] MEDS: Apixaban 2.5 MG TAB PO SCH ×2 (09:39→21:17)
[2022-05-08] MEDS: Amlodipine 5 MG TAB PO SCH (09:41)
[2022-05-08 10:27] LABS: Magnesium 1.8 mg/dL (1.6-2.6)
[2022-05-08] MEDS ORDERED: Torsemide 10 MG TAB PO SCH (11:00)
[2022-05-08] MEDS: Calcitriol 0.25 MCG CAP PO SCH (12:45)
[2022-05-08] MEDS: Atorvastatin Calcium 20 MG TAB PO SCH (21:17)
[2022-05-08] MEDS: Melatonin 3 MG TAB PO PRN (21:17)
[2022-05-09 04:21] LABS: #Eosinphils 0.1 thou/uL (0.0-0.7); #Lymphocytes 1.3 thou/uL (1.20-3.40); #Monocytes 0.4 thou/uL (0.11-0.59); #Neutrophils 4.4 thou/uL (1.40-6.50); %Basophils 0.1 % (0.0-1.0); %Eosinophils 1.3 % (0.0-10.0); %Lymphocytes 21.4 % (21.0-51.0); %Monocytes 6.6 % (0.0-10.0); %Neutrophils 70.6 % (42.0-75.0); Hemoglobin 9.8 g/dL (12.0-16.0); Mean Corpuscular HGB CONC 31.4 g/dL (32.0-36.0); Mean Corpuscular Hemoglobin 30.5 pg (27.0-31.0); Mean Corpuscular Volume 97.2 fL (78.0-98.0); Mean Platelet Volume 8.8 fL (7.4-10.4); Platelet Count 146 thou/uL (130-400); RBC Distribution Width 15.9 % (11.5-14.5); White Blood Cell (WBC) Count 6.3 thou/uL (4.8-10.8)
[2022-05-09 04:42] LABS: Anion Gap 17 mmol/L (10-20); BUN (Urea Nitrogen) 37 mg/dL (9.8-20.1); Calc. Creatinine Clearance 27 mL/min (70-130); Calcium 8.9 mg/dL (7.8-10.44); Carbon Dioxide 20 mmol/L (23-31); Chloride 105 mmol/L (98-107); Estimated GFR 24; Glucose 101 mg/dL (83-110); Potassium 4.1 mmol/L (3.5-5.1); Sodium 138 mmol/L (136-145)
[2022-05-09] MEDS: Levothyroxine Sodium 75 MCG TAB PO SCH (05:54)
[2022-05-09] MEDS: Calcitriol 0.25 MCG CAP PO SCH (10:09)
[2022-05-09] MEDS: Apixaban 2.5 MG TAB PO SCH ×2 (10:09→23:25)
[2022-05-09] MEDS: Amlodipine 5 MG TAB PO SCH (10:09)
[2022-05-09] MEDS: Torsemide 10 MG TAB PO SCH (10:09)
[2022-05-09] MEDS: Gabapentin 100 MG CAP PO SCH ×3 (10:09→23:25)
[2022-05-09] MEDS ORDERED: Ferrous Sulfate 325 MG TAB PO SCH (12:00)
[2022-05-09] MEDS: Atorvastatin Calcium 20 MG TAB PO SCH (23:25)
[2022-05-09] MEDS: Melatonin 3 MG TAB PO PRN (23:25)
[2022-05-10 03:40] VITALS: TEMP 97.6
[2022-05-10 05:03] LABS: #Eosinphils 0.1 thou/uL (0.0-0.7); #Lymphocytes 1.5 thou/uL (1.20-3.40); #Monocytes 0.4 thou/uL (0.11-0.59); #Neutrophils 3.7 thou/uL (1.40-6.50); %Basophils 0.1 % (0.0-1.0); %Eosinophils 1.3 % (0.0-10.0); %Lymphocytes 25.9 % (21.0-51.0); %Monocytes 6.5 % (0.0-10.0); %Neutrophils 66.3 % (42.0-75.0); Hemoglobin 9.6 g/dL (12.0-16.0); Mean Corpuscular HGB CONC 32.7 g/dL (32.0-36.0); Mean Corpuscular Hemoglobin 31.3 pg (27.0-31.0); Mean Corpuscular Volume 95.9 fL (78.0-98.0); Mean Platelet Volume 8.5 fL (7.4-10.4); Platelet Count 152 thou/uL (130-400); Red Blood Cell (RBC) Count 3.07 mill/uL (4.20-5.40); White Blood Cell (WBC) Count 5.6 thou/uL (4.8-10.8)
[2022-05-10 05:23] LABS: Anion Gap 13 mmol/L (10-20); BUN (Urea Nitrogen) 37 mg/dL (9.8-20.1); Calc. Creatinine Clearance 28 mL/min (70-130); Calcium 9.1 mg/dL (7.8-10.44); Carbon Dioxide 24 mmol/L (23-31); Chloride 107 mmol/L (98-107); Estimated GFR 28; Glucose 93 mg/dL (83-110); Potassium 3.8 mmol/L (3.5-5.1); Sodium 140 mmol/L (136-145)
[2022-05-10] MEDS: Levothyroxine Sodium 75 MCG TAB PO SCH (05:59)
[2022-05-10] MEDS: Amlodipine 5 MG TAB PO SCH (09:21)
[2022-05-10] MEDS: Calcitriol 0.25 MCG CAP PO SCH (09:21)
[2022-05-10] MEDS: Gabapentin 100 MG CAP PO SCH (09:21)
[2022-05-10] MEDS: Apixaban 2.5 MG TAB PO SCH (09:21)
[2022-05-10] MEDS: Torsemide 10 MG TAB PO SCH (09:22)
[2022-05-10 11:42] VITALS: BP 123/73
[2022-05-11] MEDS ORDERED: Ergocalciferol 1.25 MG(50,000 UNITS) CAP PO SCH (09:00)
== END 2022-05-10 11:20 | disposition home health service (06) | DRG 291 ==
LOC: ERS 12:31 → 2NO 14:43
PROVIDERS: ADMIT Family Medicine; ATTEND Family Medicine
DX: I13.0 Hypertensive heart and chronic kidney disease with heart failure and stage 1 through stage 4 chronic kidney disease, or unspecified chronic kidney disease (principal); I50.33 Acute on chronic diastolic (congestive) heart failure; N17.9 Acute kidney failure, unspecified; Z20.822 Contact with and (suspected) exposure to COVID-19; N18.30 Chronic kidney disease, stage 3 unspecified; I48.91 Unspecified atrial fibrillation; E03.9 Hypothyroidism, unspecified; D63.1 Anemia in chronic kidney disease; M10.9 Gout, unspecified; I25.10 Atherosclerotic heart disease of native coronary artery without angina pectoris; I45.81 Long QT syndrome; I27.20 Pulmonary hypertension, unspecified; D50.9 Iron deficiency anemia, unspecified; G47.00 Insomnia, unspecified; F32.9 Major depressive disorder, single episode, unspecified; Z83.3 Family history of diabetes mellitus; Z79.899 Other long term (current) drug therapy; Z79.890 Hormone replacement therapy; Z82.49 Family history of ischemic heart disease and other diseases of the circulatory system; Z79.01 Long term (current) use of anticoagulants; Z90.49 Acquired absence of other specified parts of digestive tract; Z90.710 Acquired absence of both cervix and uterus; Z98.84 Bariatric surgery status
CPT/HCPCS: 36415; 71045; 80048; 80053; 82550; 82553; 83735; 83880; 84484; 85025; 93005; 96374; 97139; J1940; U0002

== ENCOUNTER 2022-05-11 14:54 | Inpatient (IN) | payer MEDICARE ==
[2022-05-11 15:35] LABS: #Eosinphils 0.1 thou/uL (0.0-0.7); #Lymphocytes 1.5 thou/uL (1.20-3.40); #Monocytes 0.6 thou/uL (0.11-0.59); #Neutrophils 5.2 thou/uL (1.40-6.50); %Basophils 0.3 % (0.0-1.0); %Eosinophils 1.1 % (0.0-10.0); %Lymphocytes 20.4 % (21.0-51.0); %Monocytes 7.5 % (0.0-10.0); %Neutrophils 70.6 % (42.0-75.0); Hemoglobin 10.3 g/dL (12.0-16.0); Mean Corpuscular HGB CONC 32.4 g/dL (32.0-36.0); Mean Corpuscular Volume 95.7 fL (78.0-98.0); Mean Platelet Volume 8.3 fL (7.4-10.4); Platelet Count 162 thou/uL (130-400); RBC Distribution Width 16.1 % (11.5-14.5); Red Blood Cell (RBC) Count 3.31 mill/uL (4.20-5.40); White Blood Cell (WBC) Count 7.3 thou/uL (4.8-10.8)
[2022-05-11 15:59] LABS: ALT (SGPT) 16 U/L (8-55); AST (SGOT) 44 U/L (5-34); Albumin 3.6 g/dL (3.4-4.8); Alkaline Phosphatase 149 U/L (40-110); Anion Gap 15 mmol/L (10-20); BUN (Urea Nitrogen) 34 mg/dL (9.8-20.1); Calc. Creatinine Clearance 0 mL/min (70-130); Calcium 9.6 mg/dL (7.8-10.44); Carbon Dioxide 21 mmol/L (23-31); Chloride 107 mmol/L (98-107); Estimated GFR 33; Globulin 3.9 g/dL (2.4-3.5); Glucose 99 mg/dL (83-110); Potassium 4.1 mmol/L (3.5-5.1); Protein, Total 7.5 g/dL (5.8-8.1); Sodium 139 mmol/L (136-145)
[2022-05-11 16:16] LABS: Bilirubin Negative (Negative); Blood, Urine Negative (Negative); Clarity Clear (Clear); Glucose, Urine (Dipstick) Normal (Negative); Ketone, Urine Negative (Negative); Leukocyte 25 Leu/uL (Negative); Nitrite 2+ (Negative); Protein, Urine (Dipstick) Negative (Neg-Trace); Specific Gravity, Urine 1.017 (1.002-1.036); pH, Urine 5.5 (5.0-9.0)
[2022-05-11 16:20] LABS: CKMB 6.3 ng/mL (0-6.6)
[2022-05-11 16:23] LABS: Bacteria/HPF 4+ HPF (None Seen); RBC/HPF None Seen HPF (0-3); Squamous Epithelial 0-3 HPF (0-3); Transitional Epithelial 0-3 HPF (None Seen)
[2022-05-11] MEDS ORDERED: Acetaminophen 325 MG TAB PO PRN (17:20)
[2022-05-11] MEDS ORDERED: Melatonin 3 MG TAB PO PRN (17:25)
[2022-05-11 19:14] LABS: Troponin I 0.045 ng/mL (< 0.028)
[2022-05-11 19:40] VITALS: BMI 29.5
[2022-05-11] MEDS: Atorvastatin Calcium 20 MG TAB PO SCH (20:21)
[2022-05-11] MEDS: Gabapentin 100 MG CAP PO SCH (20:21)
[2022-05-11] MEDS: Apixaban 2.5 MG TAB PO SCH (20:21)
[2022-05-12] MEDS ORDERED: Ondansetron PF 4 MG/2 ML Vial IVP SCH (00:15)
[2022-05-12] MEDS: Levothyroxine Sodium 75 MCG TAB PO SCH (06:01)
[2022-05-12] MEDS: Calcitriol 0.25 MCG CAP PO SCH (09:00)
[2022-05-12] MEDS: Gabapentin 100 MG CAP PO SCH ×3 (09:00→21:39)
[2022-05-12] MEDS: Apixaban 2.5 MG TAB PO SCH ×2 (09:00→21:39)
[2022-05-12] MEDS: Amlodipine 5 MG TAB PO SCH (09:00)
[2022-05-12] MEDS: Losartan 25 MG TAB PO SCH (09:01)
[2022-05-12] MEDS: Torsemide 10 MG TAB PO SCH (09:02)
[2022-05-12] MEDS: Atorvastatin Calcium 20 MG TAB PO SCH (21:39)
[2022-05-13] MEDS: Levothyroxine Sodium 75 MCG TAB PO SCH (06:17)
[2022-05-13] MEDS: Torsemide 10 MG TAB PO SCH (08:50)
[2022-05-13] MEDS: Gabapentin 100 MG CAP PO SCH ×3 (08:51→20:47)
[2022-05-13] MEDS: Calcitriol 0.25 MCG CAP PO SCH (08:51)
[2022-05-13] MEDS: Amlodipine 5 MG TAB PO SCH (08:51)
[2022-05-13] MEDS: Losartan 25 MG TAB PO SCH (08:52)
[2022-05-13] MEDS: Apixaban 2.5 MG TAB PO SCH ×2 (08:52→20:47)
[2022-05-13] MEDS: Ferrous Sulfate 325 MG TAB PO SCH (12:12)
[2022-05-13] MEDS: Atorvastatin Calcium 20 MG TAB PO SCH (20:47)
[2022-05-14] MEDS: Levothyroxine Sodium 75 MCG TAB PO SCH (06:18)
[2022-05-14 08:13] LABS: #Basophils 0.1 thou/uL (0.0-0.2); #Eosinphils 0.1 thou/uL (0.0-0.7); #Lymphocytes 1.8 thou/uL (1.20-3.40); #Monocytes 0.7 thou/uL (0.11-0.59); #Neutrophils 7.1 thou/uL (1.40-6.50); %Basophils 0.6 % (0.0-1.0); %Eosinophils 0.7 % (0.0-10.0); %Lymphocytes 18.6 % (21.0-51.0); %Monocytes 6.8 % (0.0-10.0); %Neutrophils 73.2 % (42.0-75.0); Hemoglobin 10.3 g/dL (12.0-16.0); Mean Corpuscular HGB CONC 31.7 g/dL (32.0-36.0); Mean Corpuscular Hemoglobin 30.5 pg (27.0-31.0); Mean Corpuscular Volume 96.3 fL (78.0-98.0); Mean Platelet Volume 8.6 fL (7.4-10.4); Platelet Count 159 thou/uL (130-400); RBC Distribution Width 16.3 % (11.5-14.5); Red Blood Cell (RBC) Count 3.39 mill/uL (4.20-5.40); White Blood Cell (WBC) Count 9.7 thou/uL (4.8-10.8)
[2022-05-14] MEDS: Amlodipine 5 MG TAB PO SCH (08:28)
[2022-05-14] MEDS: Gabapentin 100 MG CAP PO SCH ×3 (08:28→21:16)
[2022-05-14] MEDS: Losartan 25 MG TAB PO SCH (08:28)
[2022-05-14] MEDS: Apixaban 2.5 MG TAB PO SCH ×2 (08:28→21:16)
[2022-05-14] MEDS: Torsemide 10 MG TAB PO SCH (08:28)
[2022-05-14] MEDS: Calcitriol 0.25 MCG CAP PO SCH (08:29)
[2022-05-14 08:35] LABS: ALT (SGPT) 21 U/L (8-55); AST (SGOT) 64 U/L (5-34); Albumin 3.4 g/dL (3.4-4.8); Alkaline Phosphatase 141 U/L (40-110); Anion Gap 18 mmol/L (10-20); BUN (Urea Nitrogen) 33 mg/dL (9.8-20.1); Bilirubin, Total 1.2 mg/dL (0.2-1.2); Calc. Creatinine Clearance 28 mL/min (70-130); Calcium 9.4 mg/dL (7.8-10.44); Carbon Dioxide 20 mmol/L (23-31); Chloride 105 mmol/L (98-107); Estimated GFR 29; Globulin 3.8 g/dL (2.4-3.5); Glucose 84 mg/dL (83-110); Potassium 4.6 mmol/L (3.5-5.1); Protein, Total 7.2 g/dL (5.8-8.1); Sodium 138 mmol/L (136-145)
[2022-05-14 11:37] LABS: Actual Bicarbonate (HCO3a) 22.2 mEq/L (22-28); Base Excess (BEa) -1.6 mEq/L (-2.0 to +3.0); CO2 Tension 34.4 mmHg (35.0-45.0); Calcium, Ionized (arterial) 1.17 mmol/L (1.12-1.30); Carboxyhemoglobin (COHb) 0.1 gm% (0.0-3.0); O2 Tension (PaO2), arterial 83.7 mmHg (> 70.0); Potassium - ABG Lab 4.35 mmol/L (3.70-5.30); pH, Arterial 7.43 (7.35-7.45)
[2022-05-14 11:39] LABS: Puncture Site RRA
[2022-05-14] MEDS: Atorvastatin Calcium 20 MG TAB PO SCH (21:16)
[2022-05-15] MEDS: Levothyroxine Sodium 75 MCG TAB PO SCH (06:11)
[2022-05-15] MEDS: Torsemide 10 MG TAB PO SCH (09:00)
[2022-05-15] MEDS: Calcitriol 0.25 MCG CAP PO SCH (09:01)
[2022-05-15] MEDS: Gabapentin 100 MG CAP PO SCH (09:01)
[2022-05-15] MEDS: Losartan 25 MG TAB PO SCH (09:01)
[2022-05-15] MEDS: Amlodipine 5 MG TAB PO SCH (09:02)
[2022-05-15] MEDS: Apixaban 2.5 MG TAB PO SCH (09:02)
[2022-05-15 11:56] VITALS: BP 127/76; TEMP 97.8
[2022-05-15] MEDS: Ferrous Sulfate 325 MG TAB PO SCH (13:16)
[2022-05-18] MEDS ORDERED: Ergocalciferol 1.25 MG(50,000 UNITS) CAP PO SCH (09:00)
== END 2022-05-15 14:56 | DRG 948 ==
LOC: ERS 14:54 → 2SW 16:20 → OBSVTOIN 05-14 16:55
PROVIDERS: ADMIT Student in an Organized Health Care Education/Training Program; ATTEND Student in an Organized Health Care Education/Training Program
DX: R41.0 Disorientation, unspecified (principal); I50.22 Chronic systolic (congestive) heart failure; I13.0 Hypertensive heart and chronic kidney disease with heart failure and stage 1 through stage 4 chronic kidney disease, or unspecified chronic kidney disease; Y95 Nosocomial condition; E03.9 Hypothyroidism, unspecified; M10.9 Gout, unspecified; G47.00 Insomnia, unspecified; F32.9 Major depressive disorder, single episode, unspecified; N18.32 Chronic kidney disease, stage 3b; R94.31 Abnormal electrocardiogram [ECG] [EKG]; I27.20 Pulmonary hypertension, unspecified; D50.9 Iron deficiency anemia, unspecified; I48.0 Paroxysmal atrial fibrillation; G62.9 Polyneuropathy, unspecified; Z79.899 Other long term (current) drug therapy; Z79.01 Long term (current) use of anticoagulants; Z95.818 Presence of other cardiac implants and grafts
CPT/HCPCS: 36415; 36600; 51701; 70450; 71045; 80053; 81003; 81015; 82553; 82805; 84484; 85025; 93005; 96374; G0378; J2405

== ENCOUNTER 2022-06-16 13:05 | Inpatient (IN) | payer MEDICARE ==
[2022-06-16 13:54] LABS: #Eosinphils 0.1 thou/uL (0.0-0.7); #Lymphocytes 1.6 thou/uL (1.20-3.40); #Monocytes 0.5 thou/uL (0.11-0.59); #Neutrophils 5.2 thou/uL (1.40-6.50); %Basophils 0.5 % (0.0-1.0); %Eosinophils 0.9 % (0.0-10.0); %Lymphocytes 22.2 % (21.0-51.0); %Monocytes 6.2 % (0.0-10.0); %Neutrophils 70.2 % (42.0-75.0); Hemoglobin 10.2 g/dL (12.0-16.0); Mean Corpuscular HGB CONC 31.4 g/dL (32.0-36.0); Mean Corpuscular Volume 95.7 fL (78.0-98.0); Mean Platelet Volume 8.6 fL (7.4-10.4); Platelet Count 162 thou/uL (130-400); RBC Distribution Width 15.1 % (11.5-14.5); Red Blood Cell (RBC) Count 3.41 mill/uL (4.20-5.40); White Blood Cell (WBC) Count 7.3 thou/uL (4.8-10.8)
[2022-06-16 14:20] LABS: ALT (SGPT) 10 U/L (8-55); AST (SGOT) 33 U/L (5-34); Albumin 3.3 g/dL (3.4-4.8); Alkaline Phosphatase 171 U/L (40-110); Anion Gap 13 mmol/L (10-20); BUN (Urea Nitrogen) 20 mg/dL (9.8-20.1); Bilirubin, Total 0.9 mg/dL (0.2-1.2); Calc. Creatinine Clearance 0 mL/min (70-130); Calcium 8.6 mg/dL (7.8-10.44); Carbon Dioxide 24 mmol/L (23-31); Chloride 104 mmol/L (98-107); Estimated GFR 33; Globulin 3.7 g/dL (2.4-3.5); Glucose 87 mg/dL (83-110); Lipase 30 U/L (8-78); Potassium 3.6 mmol/L (3.5-5.1); Sodium 137 mmol/L (136-145)
[2022-06-16 14:40] LABS: CKMB 2.1 ng/mL (0-6.6)
[2022-06-16] MEDS ORDERED: Furosemide 40 MG/4 ML VIAL ONE (15:29)
[2022-06-16] MEDS ORDERED: Furosemide 100 MG/10 ML VIAL ONE (17:50)
[2022-06-16] MEDS ORDERED: Acetaminophen 325 MG TAB PO PRN (18:47)
[2022-06-16] MEDS ORDERED: Melatonin 3 MG TAB PO PRN (19:18)
[2022-06-16 21:23] VITALS: BMI 29.5
[2022-06-16] MEDS: Atorvastatin Calcium 20 MG TAB PO SCH (21:30)
[2022-06-16] MEDS: traZODone HCl 50 MG TAB PO SCH (21:30)
[2022-06-16] MEDS: Apixaban 2.5 MG TAB PO SCH (21:30)
[2022-06-16] MEDS: Acetaminophen 325 MG TAB PO PRN (21:31)
[2022-06-16] MEDS: Gabapentin 100 MG CAP PO SCH (21:31)
[2022-06-17 04:29] LABS: #Basophils 0.1 thou/uL (0.0-0.2); #Eosinphils 0.1 thou/uL (0.0-0.7); #Lymphocytes 1.7 thou/uL (1.20-3.40); #Monocytes 0.4 thou/uL (0.11-0.59); #Neutrophils 4.6 thou/uL (1.40-6.50); %Basophils 0.7 % (0.0-1.0); %Eosinophils 0.8 % (0.0-10.0); %Lymphocytes 24.9 % (21.0-51.0); %Monocytes 5.7 % (0.0-10.0); %Neutrophils 67.8 % (42.0-75.0); Hemoglobin 10.1 g/dL (12.0-16.0); Mean Corpuscular HGB CONC 31.3 g/dL (32.0-36.0); Mean Corpuscular Hemoglobin 29.9 pg (27.0-31.0); Mean Corpuscular Volume 95.7 fL (78.0-98.0); Mean Platelet Volume 8.8 fL (7.4-10.4); Platelet Count 157 thou/uL (130-400); Red Blood Cell (RBC) Count 3.37 mill/uL (4.20-5.40); White Blood Cell (WBC) Count 6.8 thou/uL (4.8-10.8)
[2022-06-17 04:57] LABS: Anion Gap 15 mmol/L (10-20); BUN (Urea Nitrogen) 19 mg/dL (9.8-20.1); Calc. Creatinine Clearance 36 mL/min (70-130); Calcium 8.6 mg/dL (7.8-10.44); Carbon Dioxide 22 mmol/L (23-31); Chloride 104 mmol/L (98-107); Estimated GFR 36; Glucose 87 mg/dL (83-110); Potassium 3.6 mmol/L (3.5-5.1); Sodium 137 mmol/L (136-145)
[2022-06-17] MEDS: Furosemide 100 MG/10 ML VIAL SLOW IVP SCH ×2 (05:48→16:19)
[2022-06-17] MEDS: Levothyroxine Sodium 75 MCG TAB PO SCH (05:48)
[2022-06-17] MEDS ORDERED: BIOTENE MOUTH SPRAY 44.3 ML PO PRN (09:05)
[2022-06-17] MEDS: Calcitriol 0.25 MCG CAP PO SCH (09:11)
[2022-06-17] MEDS: Apixaban 2.5 MG TAB PO SCH ×2 (09:11→21:00)
[2022-06-17] MEDS: Amlodipine 5 MG TAB PO SCH (09:12)
[2022-06-17] MEDS: Losartan 25 MG TAB PO SCH (09:12)
[2022-06-17] MEDS: Gabapentin 100 MG CAP PO SCH ×3 (09:13→21:00)
[2022-06-17] MEDS: traZODone HCl 50 MG TAB PO SCH (21:00)
[2022-06-17] MEDS: Acetaminophen 325 MG TAB PO PRN (21:01)
[2022-06-17] MEDS: Atorvastatin Calcium 20 MG TAB PO SCH (21:03)
[2022-06-18] MEDS: Furosemide 100 MG/10 ML VIAL SLOW IVP SCH ×2 (05:21→13:42)
[2022-06-18] MEDS: Levothyroxine Sodium 75 MCG TAB PO SCH (05:22)
[2022-06-18] MEDS ORDERED: Ferrous Sulfate 325 MG TAB PO SCH (12:00)
[2022-06-18] MEDS: Gabapentin 100 MG CAP PO SCH ×3 (13:20→21:31)
[2022-06-18] MEDS: Calcitriol 0.25 MCG CAP PO SCH (13:42)
[2022-06-18] MEDS: Losartan 25 MG TAB PO SCH (13:42)
[2022-06-18] MEDS: Amlodipine 5 MG TAB PO SCH (13:44)
[2022-06-18] MEDS: Apixaban 2.5 MG TAB PO SCH (13:45)
[2022-06-18] MEDS: traZODone HCl 50 MG TAB PO SCH (21:30)
[2022-06-18] MEDS: Atorvastatin Calcium 20 MG TAB PO SCH (21:30)
[2022-06-18] MEDS: Enoxaparin Sodium 30 MG/0.3 ML SYRINGE SC SCH (21:30)
[2022-06-19] MEDS: Furosemide 100 MG/10 ML VIAL SLOW IVP SCH ×2 (05:27→15:35)
[2022-06-19] MEDS: Levothyroxine Sodium 75 MCG TAB PO SCH (05:27)
[2022-06-19] MEDS ORDERED: Aspirin 81 mg Enteric Coated Tablet PO SCH (09:00)
[2022-06-19 09:31] LABS: Anion Gap 16 mmol/L (10-20); BUN (Urea Nitrogen) 20 mg/dL (9.8-20.1); Calc. Creatinine Clearance 37 mL/min (70-130); Calcium 8.2 mg/dL (7.8-10.44); Carbon Dioxide 22 mmol/L (23-31); Chloride 104 mmol/L (98-107); Estimated GFR 39; Glucose 78 mg/dL (83-110); Magnesium 1.3 mg/dL (1.6-2.6); Potassium 3.5 mmol/L (3.5-5.1); Sodium 138 mmol/L (136-145)
[2022-06-19] MEDS: Amlodipine 5 MG TAB PO SCH (10:31)
[2022-06-19] MEDS: Gabapentin 100 MG CAP PO SCH ×3 (10:31→20:12)
[2022-06-19] MEDS: Losartan 25 MG TAB PO SCH (10:32)
[2022-06-19] MEDS: Calcitriol 0.25 MCG CAP PO SCH (10:32)
[2022-06-19] MEDS ORDERED: Magnesium Sulfate 4 GM in Sodium Chloride 0.9% 250 ML 250 ML IVPB SCH ×2 (11:15→16:30)
[2022-06-19] MEDS: Magnesium Sulfate In Water 4 GM in Premix Bag 1 BAG IVPB SCH ×2 (15:35→16:15)
[2022-06-19 17:49] VITALS: BP 124/92; TEMP 98.1
[2022-06-19] MEDS: Acetaminophen 325 MG TAB PO PRN (20:11)
[2022-06-19] MEDS: traZODone HCl 50 MG TAB PO SCH (20:12)
[2022-06-19] MEDS: Atorvastatin Calcium 20 MG TAB PO SCH (20:12)
[2022-06-19] MEDS: Enoxaparin Sodium 30 MG/0.3 ML SYRINGE SC SCH (20:13)
[2022-06-22] MEDS ORDERED: Ergocalciferol 1.25 MG(50,000 UNITS) CAP PO SCH (09:00)
== END 2022-06-19 21:42 | disposition short-term general hospital (02) | DRG 291 ==
LOC: ERS 13:05 → 2NO 18:47
PROVIDERS: ADMIT Emergency Medicine; ATTEND Emergency Medicine
PROC: B24BZZ4 Ultrasonography of Heart with Aorta, Transesophageal (ICD-10-PCS; principal; 2022-06-18)
DX: I13.0 Hypertensive heart and chronic kidney disease with heart failure and stage 1 through stage 4 chronic kidney disease, or unspecified chronic kidney disease (principal); I50.33 Acute on chronic diastolic (congestive) heart failure; I48.21 Permanent atrial fibrillation; Z20.822 Contact with and (suspected) exposure to COVID-19; I27.20 Pulmonary hypertension, unspecified; E03.9 Hypothyroidism, unspecified; D50.9 Iron deficiency anemia, unspecified; M10.9 Gout, unspecified; G47.00 Insomnia, unspecified; N18.32 Chronic kidney disease, stage 3b; R94.31 Abnormal electrocardiogram [ECG] [EKG]; F32.A Depression, unspecified; G62.9 Polyneuropathy, unspecified; I25.10 Atherosclerotic heart disease of native coronary artery without angina pectoris; I08.1 Rheumatic disorders of both mitral and tricuspid valves; Z79.899 Other long term (current) drug therapy; Z79.01 Long term (current) use of anticoagulants; Z79.890 Hormone replacement therapy; Z83.3 Family history of diabetes mellitus; Z82.49 Family history of ischemic heart disease and other diseases of the circulatory system
CPT/HCPCS: 36415; 70450; 70486; 71045; 72125; 80048; 80053; 82553; 83690; 83735; 83880; 84484; 85025; 93005; 93312; 96374; 96376; J1650; J1940; J3475; J7050; U0003; U0005

== ENCOUNTER 2022-12-02 18:09 | Inpatient (IN) | payer MEDICARE ==
[2022-12-02 19:19] LABS: #Eosinphils 0.1 thou/uL (0.0-0.7); #Lymphocytes 1.7 thou/uL (1.20-3.40); #Monocytes 0.5 thou/uL (0.11-0.59); #Neutrophils 7.1 thou/uL (1.40-6.50); %Basophils 0.4 % (0.0-1.0); %Eosinophils 1.5 % (0.0-10.0); %Lymphocytes 17.5 % (21.0-51.0); %Monocytes 5.4 % (0.0-10.0); %Neutrophils 75.3 % (42.0-75.0); Hemoglobin 8.9 g/dL (12.0-16.0); Mean Corpuscular HGB CONC 32.1 g/dL (32.0-36.0); Mean Corpuscular Hemoglobin 28.8 pg (27.0-31.0); Mean Corpuscular Volume 89.9 fl (78.0-98.0); Mean Platelet Volume 8.2 fL (7.4-10.4); Platelet Count 231 10x3/uL (130-400); RBC Distribution Width 14.7 % (11.5-14.5); White Blood Cell (WBC) Count 9.5 10x3/uL (4.8-10.8)
[2022-12-02 19:31] LABS: INR-International Normal Ratio 1.2; PTT 30.2 sec (22.9-36.1); Prothrombin Time 15.6 sec (12.0-14.7)
[2022-12-02 19:49] LABS: ALT (SGPT) 17 U/L (8-55); AST (SGOT) 41 U/L (5-34); Albumin 3.5 g/dL (3.4-4.8); Alkaline Phosphatase 146 U/L (40-110); Anion Gap 14 mmol/L (10-20); BUN (Urea Nitrogen) 21 mg/dL (9.8-20.1); Bilirubin, Total 0.5 mg/dL (0.2-1.2); CK (CPK) 76 U/L (29-168); Calc. Creatinine Clearance 0 mL/min (70-130); Calcium 8.8 mg/dL (7.8-10.44); Carbon Dioxide 20 mmol/L (23-31); Chloride 106 mmol/L (98-107); Estimated GFR 27; Globulin 4.5 g/dL (2.4-3.5); Glucose 94 mg/dL (83-110); Potassium 3.9 mmol/L (3.5-5.1); Sodium 136 mmol/L (136-145)
[2022-12-02] MEDS ORDERED: Aspirin Chewable 81 MG TAB ONE (20:41)
[2022-12-02] MEDS ORDERED: Melatonin 3 MG TAB PO SCH (23:52)
[2022-12-02 23:58] VITALS: BMI 24.4
[2022-12-02 23:58] LABS: SARS-CoV-2 NAA Rapid Test Not Detected (NotDetected)
[2022-12-03] MEDS: Acetaminophen 325 MG TAB PO PRN ×2 (03:06→09:05)
[2022-12-03 06:08] LABS: Anion Gap 15 mmol/L (10-20); BUN (Urea Nitrogen) 25 mg/dL (9.8-20.1); Calc. Creatinine Clearance 22 mL/min (70-130); Calcium 8.6 mg/dL (7.8-10.44); Carbon Dioxide 21 mmol/L (23-31); Chloride 103 mmol/L (98-107); Estimated GFR 25; Glucose 78 mg/dL (83-110); Sodium 135 mmol/L (136-145)
[2022-12-03] MEDS: Levothyroxine Sodium 75 MCG TAB PO SCH (06:13)
[2022-12-03] MEDS ORDERED: Bumetanide 1 MG TAB PO SCH ×2 (07:30→09:00)
[2022-12-03] MEDS ORDERED: Spironolactone 25 MG TAB PO SCH (08:00)
[2022-12-03] MEDS ORDERED: Potassium Chloride 10 MEQ TAB PO SCH (09:00)
[2022-12-03] MEDS ORDERED: Gabapentin 100 MG CAP PO SCH (09:00)
[2022-12-03] MEDS ORDERED: hydrALAZINE 25 MG TAB PO SCH (09:00)
[2022-12-03] MEDS ORDERED: Apixaban 2.5 MG TAB PO SCH (09:00)
[2022-12-03] MEDS: Loratadine 10 MG TAB PO SCH (09:06)
[2022-12-03] MEDS: Fluticasone Propionate Nasal Spray 16 gm Bottle NASAL SCH (09:06)
[2022-12-03] MEDS: Calcitriol 0.25 MCG CAP PO SCH (09:07)
[2022-12-03] MEDS: Ferrous Sulfate 325 MG TAB PO SCH (09:07)
[2022-12-03] MEDS: Sertraline 100 MG TAB PO SCH (09:08)
[2022-12-03] MEDS: Magnesium Oxide 400 MG TAB PO SCH ×3 (09:16→20:45)
[2022-12-03 09:21] LABS: #Eosinphils 0.1 thou/uL (0.0-0.7); #Lymphocytes 1.5 thou/uL (1.20-3.40); #Monocytes 0.5 thou/uL (0.11-0.59); #Neutrophils 4.4 thou/uL (1.40-6.50); %Basophils 0.2 % (0.0-1.0); %Eosinophils 1.1 % (0.0-10.0); %Lymphocytes 23.5 % (21.0-51.0); %Monocytes 7.5 % (0.0-10.0); %Neutrophils 67.7 % (42.0-75.0); Hemoglobin 7.5 g/dL (12.0-16.0); Mean Corpuscular Hemoglobin 28.7 pg (27.0-31.0); Mean Corpuscular Volume 89.8 fl (78.0-98.0); Mean Platelet Volume 9.2 fL (7.4-10.4); Platelet Count 178 10x3/uL (130-400); RBC Distribution Width 14.4 % (11.5-14.5); Red Blood Cell (RBC) Count 2.61 mill/uL (4.20-5.40); White Blood Cell (WBC) Count 6.6 10x3/uL (4.8-10.8)
[2022-12-03 10:03] LABS: Iron 19 ug/dL (50-170); Iron Binding Capacity, Total 409 mcg/dL (265-497); Phosphorus 4.3 mg/dL (2.3-4.7)
[2022-12-03] MEDS: Amiodarone 200 MG TAB PO SCH (10:20)
[2022-12-03] MEDS: Isosorbide Dinitrate 20 MG TAB PO SCH ×3 (10:20→20:46)
[2022-12-03] MEDS: Empagliflozin 10 MG TAB PO SCH (10:21)
[2022-12-03] MEDS: Diclofenac 1% 100 GM GEL TP PRN ×2 (12:52→17:12)
[2022-12-03] MEDS ORDERED: Iron Sucrose Complex 200 MG in Sodium Chloride 0.9% 100 ML IVPB SCH (14:00)
[2022-12-03] MEDS ORDERED: Iron, Sodium Ferric Gluconate 250 MG in Sodium Chloride 0.9% 250 ML 250 ML IVPB SCH (14:00)
[2022-12-03] MEDS: hydrALAZINE 25 MG TAB PO SCH ×2 (14:57→20:46)
[2022-12-03] MEDS: Atorvastatin Calcium 20 MG TAB PO SCH (20:45)
[2022-12-03] MEDS: Melatonin 3 MG TAB PO SCH (20:45)
[2022-12-03 22:54] LABS: #Eosinphils 0.1 thou/uL (0.0-0.7); #Lymphocytes 1.4 thou/uL (1.20-3.40); #Monocytes 0.6 thou/uL (0.11-0.59); #Neutrophils 5.8 thou/uL (1.40-6.50); %Basophils 0.4 % (0.0-1.0); %Eosinophils 0.9 % (0.0-10.0); %Lymphocytes 17.7 % (21.0-51.0); %Monocytes 7.3 % (0.0-10.0); %Neutrophils 73.6 % (42.0-75.0); Hemoglobin 7.4 g/dL (12.0-16.0); Mean Corpuscular HGB CONC 32.2 g/dL (32.0-36.0); Mean Corpuscular Hemoglobin 28.2 pg (27.0-31.0); Mean Corpuscular Volume 87.7 fl (78.0-98.0); Mean Platelet Volume 8.5 fL (7.4-10.4); Platelet Count 193 10x3/uL (130-400); RBC Distribution Width 14.3 % (11.5-14.5); Red Blood Cell (RBC) Count 2.61 mill/uL (4.20-5.40); White Blood Cell (WBC) Count 7.9 10x3/uL (4.8-10.8)
[2022-12-04] MEDS: Levothyroxine Sodium 75 MCG TAB PO SCH (05:24)
[2022-12-04] MEDS: hydrALAZINE 10 MG TAB PO SCH ×3 (05:24→20:30)
[2022-12-04] MEDS: Isosorbide Dinitrate 5 MG TAB PO SCH ×3 (05:24→20:31)
[2022-12-04 05:35] LABS: Anion Gap 13 mmol/L (10-20); BUN (Urea Nitrogen) 30 mg/dL (9.8-20.1); Calc. Creatinine Clearance 20 mL/min (70-130); Calcium 8.5 mg/dL (7.8-10.44); Carbon Dioxide 21 mmol/L (23-31); Chloride 101 mmol/L (98-107); Estimated GFR 24; Glucose 95 mg/dL (83-110); Potassium 4.2 mmol/L (3.5-5.1); Sodium 131 mmol/L (136-145)
[2022-12-04] MEDS: Amiodarone 200 MG TAB PO SCH (09:14)
[2022-12-04] MEDS: Calcitriol 0.25 MCG CAP PO SCH (09:14)
[2022-12-04] MEDS: Ferrous Sulfate 325 MG TAB PO SCH (09:14)
[2022-12-04] MEDS: Fluticasone Propionate Nasal Spray 16 gm Bottle NASAL SCH (09:16)
[2022-12-04] MEDS: Empagliflozin 10 MG TAB PO SCH (09:16)
[2022-12-04] MEDS: Magnesium Oxide 400 MG TAB PO SCH ×3 (09:17→20:30)
[2022-12-04] MEDS: Sertraline 100 MG TAB PO SCH (09:17)
[2022-12-04] MEDS: Loratadine 10 MG TAB PO SCH (09:17)
[2022-12-04] MEDS: Diclofenac 1% 100 GM GEL TP PRN (13:53)
[2022-12-04 15:22] LABS: Hemoglobin 10.2 g/dL (12.0-16.0); Platelet Count 205 10x3/uL (130-400)
[2022-12-04] MEDS ORDERED: GoLYTELY 4,000 ml Bottle PO SCH ×2 (17:30)
[2022-12-04] MEDS: Melatonin 3 MG TAB PO SCH (18:39)
[2022-12-04] MEDS: Atorvastatin Calcium 20 MG TAB PO SCH (20:30)
[2022-12-05 05:11] LABS: #Eosinphils 0.2 thou/uL (0.0-0.7); #Lymphocytes 1.8 thou/uL (1.20-3.40); #Monocytes 0.7 thou/uL (0.11-0.59); #Neutrophils 6.6 thou/uL (1.40-6.50); %Basophils 0.3 % (0.0-1.0); %Eosinophils 1.7 % (0.0-10.0); %Lymphocytes 19.3 % (21.0-51.0); %Monocytes 7.2 % (0.0-10.0); %Neutrophils 71.5 % (42.0-75.0); Hemoglobin 10.1 g/dL (12.0-16.0); Mean Corpuscular HGB CONC 32.8 g/dL (32.0-36.0); Mean Corpuscular Hemoglobin 28.6 pg (27.0-31.0); Mean Corpuscular Volume 87.1 fl (78.0-98.0); Mean Platelet Volume 8.6 fL (7.4-10.4); Platelet Count 206 10x3/uL (130-400); RBC Distribution Width 14.5 % (11.5-14.5); Red Blood Cell (RBC) Count 3.54 mill/uL (4.20-5.40); White Blood Cell (WBC) Count 9.2 10x3/uL (4.8-10.8)
[2022-12-05 05:30] LABS: Anion Gap 15 mmol/L (10-20); BUN (Urea Nitrogen) 24 mg/dL (9.8-20.1); Calc. Creatinine Clearance 23 mL/min (70-130); Carbon Dioxide 21 mmol/L (23-31); Chloride 100 mmol/L (98-107); Estimated GFR 27; Glucose 81 mg/dL (83-110); Potassium 4.8 mmol/L (3.5-5.1); Sodium 131 mmol/L (136-145)
[2022-12-05] MEDS: hydrALAZINE 10 MG TAB PO SCH (07:52)
[2022-12-05] MEDS: Levothyroxine Sodium 75 MCG TAB PO SCH (07:53)
[2022-12-05] MEDS: Isosorbide Dinitrate 5 MG TAB PO SCH ×3 (07:53→21:00)
[2022-12-05] MEDS: Loratadine 10 MG TAB PO SCH (09:33)
[2022-12-05] MEDS: Empagliflozin 10 MG TAB PO SCH (09:33)
[2022-12-05] MEDS: Calcitriol 0.25 MCG CAP PO SCH (09:33)
[2022-12-05] MEDS: Magnesium Oxide 400 MG TAB PO SCH ×3 (09:33→21:01)
[2022-12-05] MEDS: Fluticasone Propionate Nasal Spray 16 gm Bottle NASAL SCH (09:34)
[2022-12-05] MEDS: Ferrous Sulfate 325 MG TAB PO SCH (09:34)
[2022-12-05] MEDS: Sertraline 100 MG TAB PO SCH (09:34)
[2022-12-05] MEDS: Amiodarone 200 MG TAB PO SCH (09:34)
[2022-12-05] MEDS: Diclofenac 1% 100 GM GEL TP PRN (09:42)
[2022-12-05] MEDS ORDERED: Ondansetron PF 4 MG/2 ML Vial ONE (13:46)
[2022-12-05] MEDS ORDERED: PHENYLEPHRINE-NS 100 MCG/ML 10 ML SYRINGE ONE (14:17)
[2022-12-05] MEDS ORDERED: Lidocaine 1% PF 5 ML VIAL ONE (14:17)
[2022-12-05] MEDS ORDERED: Glycopyrrolate 0.2 MG/ML 5 ML SYRINGE ONE (14:17)
[2022-12-05] MEDS ORDERED: PROPOFOL 200 MG/20 ML VIAL ONE (14:17)
[2022-12-05] MEDS ORDERED: Promethazine HCl 25 MG/ML VIAL IM PRN (15:17)
[2022-12-05] MEDS ORDERED: Ondansetron HCl/PF 4 MG/2 ML Vial IVP PRN (15:17)
[2022-12-05] MEDS: hydrALAZINE 25 MG TAB PO SCH ×2 (16:47→21:00)
[2022-12-05] MEDS: Melatonin 3 MG TAB PO SCH (17:34)
[2022-12-05] MEDS: Atorvastatin Calcium 20 MG TAB PO SCH (21:00)
[2022-12-06 05:07] LABS: #Eosinphils 0.1 thou/uL (0.0-0.7); #Lymphocytes 1.3 thou/uL (1.20-3.40); #Monocytes 0.8 thou/uL (0.11-0.59); #Neutrophils 9.2 thou/uL (1.40-6.50); %Basophils 0.3 % (0.0-1.0); %Eosinophils 0.7 % (0.0-10.0); %Lymphocytes 11.7 % (21.0-51.0); %Monocytes 6.7 % (0.0-10.0); %Neutrophils 80.7 % (42.0-75.0); Hemoglobin 10.1 g/dL (12.0-16.0); Mean Corpuscular HGB CONC 32.8 g/dL (32.0-36.0); Mean Corpuscular Hemoglobin 28.6 pg (27.0-31.0); Mean Corpuscular Volume 87.2 fl (78.0-98.0); Mean Platelet Volume 8.6 fL (7.4-10.4); Platelet Count 211 10x3/uL (130-400); RBC Distribution Width 14.5 % (11.5-14.5); Red Blood Cell (RBC) Count 3.53 mill/uL (4.20-5.40); White Blood Cell (WBC) Count 11.4 10x3/uL (4.8-10.8)
[2022-12-06 05:28] LABS: Anion Gap 15 mmol/L (10-20); BUN (Urea Nitrogen) 28 mg/dL (9.8-20.1); Calc. Creatinine Clearance 19 mL/min (70-130); Calcium 8.9 mg/dL (7.8-10.44); Carbon Dioxide 19 mmol/L (23-31); Chloride 96 mmol/L (98-107); Estimated GFR 22; Glucose 83 mg/dL (83-110); Potassium 4.5 mmol/L (3.5-5.1); Sodium 125 mmol/L (136-145)
[2022-12-06] MEDS: Levothyroxine Sodium 75 MCG TAB PO SCH (06:25)
[2022-12-06] MEDS: hydrALAZINE 25 MG TAB PO SCH ×4 (06:45→21:15)
[2022-12-06] MEDS: Isosorbide Dinitrate 5 MG TAB PO SCH ×4 (06:45→21:14)
[2022-12-06] MEDS: Fluticasone Propionate Nasal Spray 16 gm Bottle NASAL SCH (08:54)
[2022-12-06] MEDS: Diclofenac 1% 100 GM GEL TP PRN (08:55)
[2022-12-06] MEDS: Magnesium Oxide 400 MG TAB PO SCH ×3 (08:56→21:14)
[2022-12-06] MEDS: Calcitriol 0.25 MCG CAP PO SCH (08:56)
[2022-12-06] MEDS: Amiodarone 200 MG TAB PO SCH (08:56)
[2022-12-06] MEDS: Sertraline 100 MG TAB PO SCH (08:56)
[2022-12-06] MEDS: Ferrous Sulfate 325 MG TAB PO SCH (08:56)
[2022-12-06] MEDS: Loratadine 10 MG TAB PO SCH (08:57)
[2022-12-06] MEDS: Empagliflozin 10 MG TAB PO SCH (08:57)
[2022-12-06] MEDS ORDERED: Sodium Bicarbonate 150 MEQ in Dextrose 5% in Water 500 ML IV SCH (10:00)
[2022-12-06] MEDS: Melatonin 3 MG TAB PO SCH (16:15)
[2022-12-06 19:59] LABS: Anion Gap 14 mmol/L (10-20); BUN (Urea Nitrogen) 30 mg/dL (9.8-20.1); Calc. Creatinine Clearance 18 mL/min (70-130); Calcium 8.9 mg/dL (7.8-10.44); Carbon Dioxide 23 mmol/L (23-31); Chloride 94 mmol/L (98-107); Estimated GFR 20; Glucose 129 mg/dL (83-110); Magnesium 2.1 mg/dL (1.6-2.6); Potassium 4.2 mmol/L (3.5-5.1); Sodium 127 mmol/L (136-145)
[2022-12-06] MEDS: Atorvastatin Calcium 20 MG TAB PO SCH (21:14)
[2022-12-06] MEDS ORDERED: Melatonin 3 MG TAB PO SCH (23:21)
[2022-12-07 05:15] LABS: #Eosinphils 0.2 thou/uL (0.0-0.7); #Lymphocytes 1.3 thou/uL (1.20-3.40); #Monocytes 0.8 thou/uL (0.11-0.59); #Neutrophils 7.9 thou/uL (1.40-6.50); %Basophils 0.3 % (0.0-1.0); %Eosinophils 1.5 % (0.0-10.0); %Lymphocytes 12.5 % (21.0-51.0); %Monocytes 7.6 % (0.0-10.0); %Neutrophils 78.1 % (42.0-75.0); Hemoglobin 9.7 g/dL (12.0-16.0); Mean Corpuscular HGB CONC 32.2 g/dL (32.0-36.0); Mean Corpuscular Hemoglobin 28.5 pg (27.0-31.0); Mean Corpuscular Volume 88.4 fl (78.0-98.0); Mean Platelet Volume 8.9 fL (7.4-10.4); Platelet Count 200 10x3/uL (130-400); RBC Distribution Width 15.2 % (11.5-14.5); White Blood Cell (WBC) Count 10.2 10x3/uL (4.8-10.8)
[2022-12-07 05:26] LABS: Anion Gap 16 mmol/L (10-20); BUN (Urea Nitrogen) 31 mg/dL (9.8-20.1); Calc. Creatinine Clearance 19 mL/min (70-130); Calcium 8.9 mg/dL (7.8-10.44); Carbon Dioxide 20 mmol/L (23-31); Chloride 94 mmol/L (98-107); Estimated GFR 21; Glucose 89 mg/dL (83-110); Potassium 4.6 mmol/L (3.5-5.1); Sodium 125 mmol/L (136-145)
[2022-12-07] MEDS: Levothyroxine Sodium 75 MCG TAB PO SCH (06:11)
[2022-12-07 07:46] LABS: Magnesium 2.1 mg/dL (1.6-2.6)
[2022-12-07] MEDS ORDERED: Sodium Bicarbonate 150 MEQ in Dextrose 5% in Water 1,000 ML IV SCH (09:00)
[2022-12-07] MEDS: Empagliflozin 10 MG TAB PO SCH (10:03)
[2022-12-07] MEDS: Ferrous Sulfate 325 MG TAB PO SCH ×2 (10:03→12:08)
[2022-12-07] MEDS: Amiodarone 200 MG TAB PO SCH (10:03)
[2022-12-07] MEDS: Sertraline 100 MG TAB PO SCH (10:03)
[2022-12-07] MEDS: Loratadine 10 MG TAB PO SCH (10:03)
[2022-12-07] MEDS: Calcitriol 0.25 MCG CAP PO SCH (10:04)
[2022-12-07] MEDS: hydrALAZINE 25 MG TAB PO SCH ×3 (10:04→20:10)
[2022-12-07] MEDS: Fluticasone Propionate Nasal Spray 16 gm Bottle NASAL SCH (10:04)
[2022-12-07] MEDS: Isosorbide Dinitrate 5 MG TAB PO SCH ×3 (10:04→20:11)
[2022-12-07] MEDS: Magnesium Oxide 400 MG TAB PO SCH ×3 (10:04→20:10)
[2022-12-07 14:09] LABS: Creatinine, Urine 55.08 mg/dL (47-110)
[2022-12-07] MEDS ORDERED: Sodium Chloride 0.9% 1,000 ML IV SCH (19:00)
[2022-12-07] MEDS: Atorvastatin Calcium 20 MG TAB PO SCH (20:10)
[2022-12-07] MEDS: Melatonin 3 MG TAB PO SCH (20:10)
[2022-12-08 05:02] LABS: #Eosinphils 0.2 thou/uL (0.0-0.7); #Lymphocytes 1.2 thou/uL (1.20-3.40); #Monocytes 0.6 thou/uL (0.11-0.59); #Neutrophils 6.8 thou/uL (1.40-6.50); %Basophils 0.1 % (0.0-1.0); %Eosinophils 1.8 % (0.0-10.0); %Lymphocytes 13.4 % (21.0-51.0); %Monocytes 6.9 % (0.0-10.0); %Neutrophils 77.8 % (42.0-75.0); Hemoglobin 9.8 g/dL (12.0-16.0); Mean Corpuscular HGB CONC 32.6 g/dL (32.0-36.0); Mean Corpuscular Volume 88.7 fl (78.0-98.0); Mean Platelet Volume 8.4 fL (7.4-10.4); Platelet Count 193 10x3/uL (130-400); RBC Distribution Width 15.9 % (11.5-14.5); Red Blood Cell (RBC) Count 3.38 mill/uL (4.20-5.40); White Blood Cell (WBC) Count 8.7 10x3/uL (4.8-10.8)
[2022-12-08] MEDS: Levothyroxine Sodium 75 MCG TAB PO SCH (05:25)
[2022-12-08 05:29] LABS: Anion Gap 13 mmol/L (10-20); BUN (Urea Nitrogen) 28 mg/dL (9.8-20.1); Calc. Creatinine Clearance 21 mL/min (70-130); Calcium 8.8 mg/dL (7.8-10.44); Carbon Dioxide 27 mmol/L (23-31); Chloride 95 mmol/L (98-107); Estimated GFR 24; Glucose 85 mg/dL (83-110); Sodium 131 mmol/L (136-145)
[2022-12-08] MEDS: Amiodarone 200 MG TAB PO SCH (08:24)
[2022-12-08] MEDS: Calcitriol 0.25 MCG CAP PO SCH (08:24)
[2022-12-08] MEDS: Sertraline 100 MG TAB PO SCH (08:24)
[2022-12-08] MEDS: Loratadine 10 MG TAB PO SCH (08:24)
[2022-12-08] MEDS: Magnesium Oxide 400 MG TAB PO SCH ×3 (08:25→20:46)
[2022-12-08] MEDS: Empagliflozin 10 MG TAB PO SCH (08:25)
[2022-12-08] MEDS: Amlodipine 5 MG TAB PO SCH (08:33)
[2022-12-08] MEDS: Fluticasone Propionate Nasal Spray 16 gm Bottle NASAL SCH (08:33)
[2022-12-08] MEDS: Melatonin 3 MG TAB PO SCH (20:46)
[2022-12-08] MEDS: Atorvastatin Calcium 20 MG TAB PO SCH (20:46)
[2022-12-08] MEDS: Diclofenac 1% 100 GM GEL TP PRN (20:48)
[2022-12-09 06:00] LABS: #Eosinphils 0.1 thou/uL (0.0-0.7); #Lymphocytes 1.5 thou/uL (1.20-3.40); #Monocytes 0.7 thou/uL (0.11-0.59); #Neutrophils 6.7 thou/uL (1.40-6.50); %Basophils 0.1 % (0.0-1.0); %Eosinophils 1.2 % (0.0-10.0); %Monocytes 8.1 % (0.0-10.0); %Neutrophils 74.6 % (42.0-75.0); Hemoglobin 9.7 g/dL (12.0-16.0); Mean Corpuscular HGB CONC 32.2 g/dL (32.0-36.0); Mean Corpuscular Hemoglobin 28.7 pg (27.0-31.0); Mean Corpuscular Volume 89.1 fl (78.0-98.0); Mean Platelet Volume 8.3 fL (7.4-10.4); Platelet Count 196 10x3/uL (130-400); RBC Distribution Width 16.2 % (11.5-14.5); Red Blood Cell (RBC) Count 3.38 mill/uL (4.20-5.40)
[2022-12-09 06:21] LABS: Anion Gap 12 mmol/L (10-20); BUN (Urea Nitrogen) 23 mg/dL (9.8-20.1); Calc. Creatinine Clearance 25 mL/min (70-130); Calcium 8.8 mg/dL (7.8-10.44); Carbon Dioxide 24 mmol/L (23-31); Chloride 98 mmol/L (98-107); Estimated GFR 29; Glucose 81 mg/dL (83-110); Potassium 4.3 mmol/L (3.5-5.1); Sodium 130 mmol/L (136-145)
[2022-12-09] MEDS: Levothyroxine Sodium 75 MCG TAB PO SCH (06:44)
[2022-12-09] MEDS: Fluticasone Propionate Nasal Spray 16 gm Bottle NASAL SCH (08:25)
[2022-12-09] MEDS: Calcitriol 0.25 MCG CAP PO SCH (08:25)
[2022-12-09] MEDS: Magnesium Oxide 400 MG TAB PO SCH ×3 (08:25→21:15)
[2022-12-09] MEDS: Amiodarone 200 MG TAB PO SCH (08:25)
[2022-12-09] MEDS: Empagliflozin 10 MG TAB PO SCH (08:25)
[2022-12-09] MEDS: Loratadine 10 MG TAB PO SCH (08:25)
[2022-12-09] MEDS: Amlodipine 5 MG TAB PO SCH (08:25)
[2022-12-09] MEDS: Ferrous Sulfate 325 MG TAB PO SCH (08:25)
[2022-12-09] MEDS: Sertraline 100 MG TAB PO SCH (08:26)
[2022-12-09] MEDS: Polyethylene Glycol 3350 17 GM Packet PO SCH (08:26)
[2022-12-09] MEDS ORDERED: Amlodipine 5 MG TAB PO SCH (09:00)
[2022-12-09] MEDS ORDERED: Allopurinol 100 MG TAB PO SCH ×2 (12:00→15:00)
[2022-12-09] MEDS: Diclofenac 1% 100 GM GEL TP PRN (14:29)
[2022-12-09] MEDS: Acetaminophen 325 MG TAB PO PRN (14:35)
[2022-12-09] MEDS: Atorvastatin Calcium 20 MG TAB PO SCH (21:15)
[2022-12-09] MEDS: Melatonin 3 MG TAB PO SCH (21:15)
[2022-12-10 05:03] LABS: #Eosinphils 0.1 thou/uL (0.0-0.7); #Lymphocytes 1.4 thou/uL (1.20-3.40); #Monocytes 0.6 thou/uL (0.11-0.59); #Neutrophils 8.2 thou/uL (1.40-6.50); %Basophils 0.3 % (0.0-1.0); %Eosinophils 1.1 % (0.0-10.0); %Lymphocytes 13.3 % (21.0-51.0); %Neutrophils 79.4 % (42.0-75.0); Hemoglobin 9.9 g/dL (12.0-16.0); Mean Corpuscular HGB CONC 32.2 g/dL (32.0-36.0); Mean Corpuscular Hemoglobin 29.1 pg (27.0-31.0); Mean Corpuscular Volume 90.5 fl (78.0-98.0); Mean Platelet Volume 8.1 fL (7.4-10.4); Platelet Count 205 10x3/uL (130-400); RBC Distribution Width 16.5 % (11.5-14.5); Red Blood Cell (RBC) Count 3.41 mill/uL (4.20-5.40); White Blood Cell (WBC) Count 10.3 10x3/uL (4.8-10.8)
[2022-12-10 05:22] LABS: Anion Gap 14 mmol/L (10-20); BUN (Urea Nitrogen) 22 mg/dL (9.8-20.1); Calc. Creatinine Clearance 25 mL/min (70-130); Carbon Dioxide 21 mmol/L (23-31); Chloride 99 mmol/L (98-107); Estimated GFR 29; Glucose 114 mg/dL (83-110); Magnesium 1.8 mg/dL (1.6-2.6); Potassium 4.3 mmol/L (3.5-5.1); Sodium 130 mmol/L (136-145)
[2022-12-10] MEDS: Levothyroxine Sodium 75 MCG TAB PO SCH (05:50)
[2022-12-10] MEDS: Amiodarone 200 MG TAB PO SCH (09:26)
[2022-12-10] MEDS: Empagliflozin 10 MG TAB PO SCH (09:26)
[2022-12-10] MEDS: Loratadine 10 MG TAB PO SCH (09:26)
[2022-12-10] MEDS: Calcitriol 0.25 MCG CAP PO SCH (09:26)
[2022-12-10] MEDS: Amlodipine 5 MG TAB PO SCH (09:26)
[2022-12-10] MEDS: Sertraline 100 MG TAB PO SCH (09:27)
[2022-12-10] MEDS: Polyethylene Glycol 3350 17 GM Packet PO SCH (09:28)
[2022-12-10] MEDS: Magnesium Oxide 400 MG TAB PO SCH ×2 (09:29→15:33)
[2022-12-10] MEDS: Fluticasone Propionate Nasal Spray 16 gm Bottle NASAL SCH (15:33)
[2022-12-10 16:07] VITALS: BP 152/67; TEMP 98.5
== END 2022-12-10 15:40 | disposition home or self-care (01) | DRG 811 ==
LOC: ERS 18:09 → ERHOLD 21:45 → NEURO 12-03 00:46 → 2SW 12-03 19:53 → OBSVTOIN 12-04 12:31
PROVIDERS: ADMIT Student in an Organized Health Care Education/Training Program; ATTEND Student in an Organized Health Care Education/Training Program
PROC: 30233N1 Transfusion of Nonautologous Red Blood Cells into Peripheral Vein, Percutaneous Approach (ICD-10-PCS; principal; 2022-12-04)
PROC: 4B02XSZ Measurement of Cardiac Pacemaker, External Approach (ICD-10-PCS; 2022-12-04)
PROC: 0DB68ZX Excision of Stomach, Via Natural or Artificial Opening Endoscopic, Diagnostic (ICD-10-PCS; 2022-12-05)
PROC: 0DBK8ZZ Excision of Ascending Colon, Via Natural or Artificial Opening Endoscopic (ICD-10-PCS; 2022-12-05)
PROC: 0DBH8ZZ Excision of Cecum, Via Natural or Artificial Opening Endoscopic (ICD-10-PCS; 2022-12-05)
PROC: 0DBA8ZX Excision of Jejunum, Via Natural or Artificial Opening Endoscopic, Diagnostic (ICD-10-PCS; 2022-12-05)
DX: D50.9 Iron deficiency anemia, unspecified (principal); I50.33 Acute on chronic diastolic (congestive) heart failure; I13.0 Hypertensive heart and chronic kidney disease with heart failure and stage 1 through stage 4 chronic kidney disease, or unspecified chronic kidney disease; N17.9 Acute kidney failure, unspecified; E87.1 Hypo-osmolality and hyponatremia; I48.21 Permanent atrial fibrillation; I42.8 Other cardiomyopathies; Z20.822 Contact with and (suspected) exposure to COVID-19; K64.4 Residual hemorrhoidal skin tags; K64.8 Other hemorrhoids; I95.1 Orthostatic hypotension; N18.32 Chronic kidney disease, stage 3b; R94.31 Abnormal electrocardiogram [ECG] [EKG]; J32.9 Chronic sinusitis, unspecified; E03.9 Hypothyroidism, unspecified; G47.00 Insomnia, unspecified; M1A.9XX0 Chronic gout, unspecified, without tophus (tophi); I49.5 Sick sinus syndrome; I27.20 Pulmonary hypertension, unspecified; K31.89 Other diseases of stomach and duodenum; I08.3 Combined rheumatic disorders of mitral, aortic and tricuspid valves; D12.0 Benign neoplasm of cecum; E86.1 Hypovolemia; M25.562 Pain in left knee; Z98.84 Bariatric surgery status; Z95.0 Presence of cardiac pacemaker; Z79.899 Other long term (current) drug therapy; Z79.890 Hormone replacement therapy
CPT/HCPCS: 36415; 36430; 70450; 70486; 71045; 72125; 80048; 80053; 82274; 82550; 82553; 82570; 82728; 83540; 83550; 83735; 83880; 83930; 83935; 84100; 84300; 84443; 84484; 84550; 85014; 85018; 85025; 85049; 85610; 85730; 86850; 86900; 86901; 87811; 88305; 93005; 96365; 96366; 97139; G0378; J2405; J2704; J2916; J7050; J7070; P9016; U0002

== ENCOUNTER 2023-06-28 16:09 | Inpatient (IN) | payer MEDICARE ==
[~2023-06-28 16:09] MED LIST changes: -Iopamidol-370 76% 500 ML 1 ML ONE; +Iopamidol-370 76% 500 ML MDV (1 ML CHARGE) ONE
[2023-06-28] MEDS ORDERED: Morphine 2 MG/ML VIAL ONE (16:55)
[2023-06-28] MEDS ORDERED: Ondansetron PF 4 MG/2 ML Vial ONE (16:55)
[2023-06-28 17:38] LABS: #Eosinphils 0.1 thou/uL (0.0-0.7); #Monocytes 0.7 thou/uL (0.11-0.59); #Neutrophils 7.2 thou/uL (1.40-6.50); %Basophils 0.4 % (0.0-1.0); %Eosinophils 0.9 % (0.0-10.0); %Lymphocytes 17.5 % (21.0-51.0); %Monocytes 7.2 % (0.0-10.0); %Neutrophils 73.6 % (42.0-75.0); Hematocrit 24.8 % (36.0-47.0); Hemoglobin 8.1 g/dL (12.0-16.0); Mean Corpuscular HGB CONC 32.7 g/dL (32.0-36.0); Mean Corpuscular Hemoglobin 32.1 pg (27.0-31.0); Mean Corpuscular Volume 98.4 fl (78.0-98.0); Mean Platelet Volume 10.3 fL (7.4-10.4); Platelet Count 217 10x3/uL (130-400); RBC Distribution Width 14.9 % (11.5-14.5); Red Blood Cell (RBC) Count 2.52 mill/uL (4.20-5.40); White Blood Cell (WBC) Count 9.7 10x3/uL (4.8-10.8)
[2023-06-28 18:04] LABS: Troponin I 0.021 ng/mL (< 0.028)
[2023-06-28 18:08] LABS: ALT (SGPT) 16 U/L (8-55); AST (SGOT) 42 U/L (5-34); Albumin 2.8 g/dL (3.4-4.8); Alkaline Phosphatase 211 U/L (40-110); Anion Gap 12 mmol/L (10-20); BUN (Urea Nitrogen) 18 mg/dL (9.8-20.1); Bilirubin, Total 0.5 mg/dL (0.2-1.2); Calc. Creatinine Clearance 0 mL/min (70-130); Calcium 8.3 mg/dL (7.8-10.44); Carbon Dioxide 23 mmol/L (23-31); Chloride 105 mmol/L (98-107); Estimated GFR 32; Globulin 3.9 g/dL (2.4-3.5); Glucose 84 mg/dL (83-110); Lipase 64 U/L (8-78); Potassium 3.8 mmol/L (3.5-5.1); Protein, Total 6.7 g/dL (5.8-8.1); Sodium 136 mmol/L (136-145)
[2023-06-28] MEDS ORDERED: Piperacillin/Tazobactam 3.375 GM VIAL ONE (20:18)
[2023-06-28] MEDS ORDERED: Calcium Carbonate 500 MG ChewTAB PO PRN (22:33)
[2023-06-28] MEDS ORDERED: Ondansetron ODT 4 MG TAB PO PRN (22:33)
[2023-06-28] MEDS ORDERED: Ondansetron PF 4 MG/2 ML Vial IVP PRN (22:33)
[2023-06-28 23:01] VITALS: BMI 24.6
[2023-06-28] MEDS ORDERED: D5 1/2 NS w/20 mEq KCL 1,000 ML IV SCH (23:15)
[2023-06-28] MEDS: Melatonin 3 MG TAB PO PRN (23:44)
[2023-06-29] MEDS: Levothyroxine Sodium 75 MCG TAB PO SCH (05:21)
[2023-06-29 06:11] LABS: #Eosinphils 0.1 thou/uL (0.0-0.7); #Monocytes 0.6 thou/uL (0.11-0.59); #Neutrophils 5.6 thou/uL (1.40-6.50); %Basophils 0.4 % (0.0-1.0); %Eosinophils 1.3 % (0.0-10.0); %Lymphocytes 19.6 % (21.0-51.0); %Monocytes 7.4 % (0.0-10.0); %Neutrophils 70.9 % (42.0-75.0); Hematocrit 24.6 % (36.0-47.0); Hemoglobin 7.6 g/dL (12.0-16.0); Mean Corpuscular HGB CONC 30.9 g/dL (32.0-36.0); Mean Corpuscular Hemoglobin 30.9 pg (27.0-31.0); Mean Platelet Volume 10.4 fL (7.4-10.4); Platelet Count 206 10x3/uL (130-400); RBC Distribution Width 14.9 % (11.5-14.5); Red Blood Cell (RBC) Count 2.46 mill/uL (4.20-5.40); White Blood Cell (WBC) Count 7.9 10x3/uL (4.8-10.8)
[2023-06-29] MEDS ORDERED: Morphine 2 MG/ML VIAL SLOW IVP PRN (06:22)
[2023-06-29 06:32] LABS: Anion Gap 12 mmol/L (10-20); BUN (Urea Nitrogen) 18 mg/dL (9.8-20.1); Calc. Creatinine Clearance 27 mL/min (70-130); Carbon Dioxide 23 mmol/L (23-31); Chloride 103 mmol/L (98-107); Estimated GFR 33; Glucose 84 mg/dL (83-110); Potassium 3.9 mmol/L (3.5-5.1); Sodium 134 mmol/L (136-145)
[2023-06-29] MEDS ORDERED: Furosemide 40 MG TAB PO SCH (07:30)
[2023-06-29] MEDS ORDERED: Famotidine/PF 20 mg/2ml Vial SLOW IVP SCH (09:00)
[2023-06-29] MEDS: Allopurinol 100 MG TAB PO SCH (10:27)
[2023-06-29] MEDS: Calcitriol 0.25 MCG CAP PO SCH (10:28)
[2023-06-29] MEDS: Famotidine 20 MG TAB PO SCH (10:29)
[2023-06-29] MEDS: Amiodarone 200 MG TAB PO SCH (10:29)
[2023-06-29] MEDS: hydrALAZINE 25 MG TAB PO SCH ×2 (10:29→19:53)
[2023-06-29] MEDS: Apixaban 2.5 MG TAB PO SCH ×2 (10:31→19:52)
[2023-06-29] MEDS: Loratadine 10 MG TAB PO SCH (10:31)
[2023-06-29] MEDS: Sertraline 100 MG TAB PO SCH (10:33)
[2023-06-29] MEDS: Isosorbide Dinitrate 20 MG TAB PO SCH ×2 (10:36→19:52)
[2023-06-29] MEDS: Empagliflozin 10 MG TAB PO SCH (10:38)
[2023-06-29 15:34] LABS: Hematocrit 24.5 % (36.0-47.0); Hemoglobin 7.8 g/dL (12.0-16.0)
[2023-06-29] MEDS: Lactated Ringer's 1,000 ML IV SCH (17:33)
[2023-06-29] MEDS: Atorvastatin Calcium 20 MG TAB PO SCH (19:52)
[2023-06-29] MEDS: Melatonin 3 MG TAB PO PRN (21:07)
[2023-06-30] MEDS: Levothyroxine Sodium 75 MCG TAB PO SCH (06:01)
[2023-06-30 07:12] LABS: #Basophils 0.1 thou/uL (0.0-0.2); #Eosinphils 0.1 thou/uL (0.0-0.7); #Monocytes 0.5 thou/uL (0.11-0.59); %Basophils 0.7 % (0.0-1.0); %Eosinophils 1.5 % (0.0-10.0); %Lymphocytes 21.6 % (21.0-51.0); %Monocytes 6.7 % (0.0-10.0); %Neutrophils 69.2 % (42.0-75.0); Hematocrit 24.3 % (36.0-47.0); Hemoglobin 7.5 g/dL (12.0-16.0); Mean Corpuscular HGB CONC 30.9 g/dL (32.0-36.0); Mean Corpuscular Hemoglobin 31.6 pg (27.0-31.0); Mean Corpuscular Volume 102.5 fl (78.0-98.0); Mean Platelet Volume 10.2 fL (7.4-10.4); Platelet Count 211 10x3/uL (130-400); RBC Distribution Width 14.6 % (11.5-14.5); Red Blood Cell (RBC) Count 2.37 mill/uL (4.20-5.40); White Blood Cell (WBC) Count 7.2 10x3/uL (4.8-10.8)
[2023-06-30 07:33] LABS: Anion Gap 12 mmol/L (10-20); BUN (Urea Nitrogen) 16 mg/dL (9.8-20.1); Calc. Creatinine Clearance 26 mL/min (70-130); Calcium 8.3 mg/dL (7.8-10.44); Carbon Dioxide 22 mmol/L (23-31); Chloride 100 mmol/L (98-107); Estimated GFR 32; Glucose 78 mg/dL (83-110); Magnesium 1.6 mg/dL (1.6-2.6); Sodium 130 mmol/L (136-145)
[2023-06-30] MEDS: Aspirin Chewable 81 MG TAB PO SCH (09:29)
[2023-06-30] MEDS: Amlodipine 5 MG TAB PO SCH ×2 (09:29→09:37)
[2023-06-30] MEDS: Sertraline 100 MG TAB PO SCH (09:29)
[2023-06-30] MEDS: Empagliflozin 10 MG TAB PO SCH (09:29)
[2023-06-30] MEDS: Isosorbide Dinitrate 20 MG TAB PO SCH ×2 (09:29→20:19)
[2023-06-30] MEDS: Loratadine 10 MG TAB PO SCH (09:32)
[2023-06-30] MEDS: Calcitriol 0.25 MCG CAP PO SCH (09:32)
[2023-06-30] MEDS: Amiodarone 200 MG TAB PO SCH (09:32)
[2023-06-30] MEDS: Famotidine 20 MG TAB PO SCH (09:32)
[2023-06-30] MEDS: hydrALAZINE 25 MG TAB PO SCH ×2 (09:32→20:20)
[2023-06-30] MEDS: Apixaban 2.5 MG TAB PO SCH ×2 (09:33→20:19)
[2023-06-30] MEDS: Lactated Ringer's 1,000 ML IV SCH (09:38)
[2023-06-30] MEDS: Atorvastatin Calcium 20 MG TAB PO SCH (20:19)
[2023-06-30] MEDS: Melatonin 3 MG TAB PO PRN (21:43)
[2023-07-01] MEDS ORDERED: Levothyroxine Sodium 88 MCG TAB PO SCH (06:00)
[2023-07-01] MEDS: Allopurinol 100 MG TAB PO SCH (09:45)
[2023-07-01] MEDS: Calcitriol 0.25 MCG CAP PO SCH (09:46)
[2023-07-01] MEDS: Amlodipine 5 MG TAB PO SCH (09:46)
[2023-07-01] MEDS: hydrALAZINE 25 MG TAB PO SCH (09:46)
[2023-07-01] MEDS: Amiodarone 200 MG TAB PO SCH (09:47)
[2023-07-01] MEDS: Empagliflozin 10 MG TAB PO SCH (09:47)
[2023-07-01] MEDS: Famotidine 20 MG TAB PO SCH (09:47)
[2023-07-01] MEDS: Apixaban 2.5 MG TAB PO SCH (09:47)
[2023-07-01] MEDS: Aspirin Chewable 81 MG TAB PO SCH (09:47)
[2023-07-01] MEDS: Isosorbide Dinitrate 20 MG TAB PO SCH (09:47)
[2023-07-01] MEDS: Sertraline 100 MG TAB PO SCH (09:47)
[2023-07-01] MEDS: Loratadine 10 MG TAB PO SCH (09:50)
[2023-07-01 10:26] LABS: #Eosinphils 0.1 thou/uL (0.0-0.7); #Monocytes 0.7 thou/uL (0.11-0.59); #Neutrophils 6.9 thou/uL (1.40-6.50); %Basophils 0.4 % (0.0-1.0); %Lymphocytes 19.8 % (21.0-51.0); %Monocytes 7.1 % (0.0-10.0); %Neutrophils 71.4 % (42.0-75.0); Hematocrit 24.4 % (36.0-47.0); Hemoglobin 7.7 g/dL (12.0-16.0); Mean Corpuscular HGB CONC 31.6 g/dL (32.0-36.0); Mean Corpuscular Hemoglobin 31.3 pg (27.0-31.0); Mean Corpuscular Volume 99.2 fl (78.0-98.0); Mean Platelet Volume 10.1 fL (7.4-10.4); Platelet Count 234 10x3/uL (130-400); RBC Distribution Width 14.5 % (11.5-14.5); Red Blood Cell (RBC) Count 2.46 mill/uL (4.20-5.40); White Blood Cell (WBC) Count 9.6 10x3/uL (4.8-10.8)
[2023-07-01 10:47] LABS: Anion Gap 10 mmol/L (10-20); BUN (Urea Nitrogen) 15 mg/dL (9.8-20.1); Calc. Creatinine Clearance 25 mL/min (70-130); Calcium 8.3 mg/dL (7.8-10.44); Carbon Dioxide 25 mmol/L (23-31); Chloride 100 mmol/L (98-107); Estimated GFR 30; Glucose 80 mg/dL (83-110); Sodium 131 mmol/L (136-145)
[2023-07-01 15:30] VITALS: BP 130/63; TEMP 97.9
== END 2023-07-01 16:58 | disposition home or self-care (01) | DRG 392 ==
LOC: ERS 16:09 → SURG A 21:40 → OBSVTOIN 06-29 11:36
PROVIDERS: ADMIT Student in an Organized Health Care Education/Training Program; ATTEND Family Medicine
DX: R10.9 Unspecified abdominal pain (principal); I13.0 Hypertensive heart and chronic kidney disease with heart failure and stage 1 through stage 4 chronic kidney disease, or unspecified chronic kidney disease; I50.32 Chronic diastolic (congestive) heart failure; K43.9 Ventral hernia without obstruction or gangrene; N18.9 Chronic kidney disease, unspecified; D63.1 Anemia in chronic kidney disease; I49.5 Sick sinus syndrome; I48.91 Unspecified atrial fibrillation; E03.9 Hypothyroidism, unspecified; I27.20 Pulmonary hypertension, unspecified; M10.9 Gout, unspecified; F32.A Depression, unspecified; Z90.49 Acquired absence of other specified parts of digestive tract; Z90.710 Acquired absence of both cervix and uterus; Z98.84 Bariatric surgery status; Z95.0 Presence of cardiac pacemaker; Z79.82 Long term (current) use of aspirin; Z79.899 Other long term (current) drug therapy; Z93.3 Colostomy status
CPT/HCPCS: 36415; 71045; 71275; 74177; 80048; 80053; 83605; 83690; 83735; 83880; 84484; 85025; 85379; 93005; 94760; 96365; 96375; J2272; J2405; J2543; J3480; J7120; Q9967

== ENCOUNTER 2023-07-07 15:40 | Emergency (ER) | payer MEDICARE ==
[2023-07-07] MEDS ORDERED: Dicyclomine 20 MG/2 ML VIAL ONE (16:25)
[2023-07-07] MEDS ORDERED: Ondansetron PF 4 MG/2 ML Vial ONE (16:26)
[2023-07-07 16:48] LABS: #Basophils 0.1 thou/uL (0.0-0.2); #Eosinphils 0.2 thou/uL (0.0-0.7); #Monocytes 0.8 thou/uL (0.11-0.59); #Neutrophils 7.9 thou/uL (1.40-6.50); %Basophils 0.5 % (0.0-1.0); %Eosinophils 1.5 % (0.0-10.0); %Lymphocytes 18.7 % (21.0-51.0); %Monocytes 7.6 % (0.0-10.0); %Neutrophils 71.3 % (42.0-75.0); Hematocrit 24.3 % (36.0-47.0); Hemoglobin 7.7 g/dL (12.0-16.0); Mean Corpuscular HGB CONC 31.7 g/dL (32.0-36.0); Mean Corpuscular Hemoglobin 30.8 pg (27.0-31.0); Mean Corpuscular Volume 97.2 fl (78.0-98.0); Mean Platelet Volume 10.4 fL (7.4-10.4); Platelet Count 246 10x3/uL (130-400); RBC Distribution Width 14.2 % (11.5-14.5)
[2023-07-07 17:10] LABS: ALT (SGPT) 20 U/L (8-55); AST (SGOT) 50 U/L (5-34); Albumin 2.7 g/dL (3.4-4.8); Alkaline Phosphatase 206 U/L (40-110); Anion Gap 14 mmol/L (10-20); BUN (Urea Nitrogen) 28 mg/dL (9.8-20.1); Bilirubin, Total 0.4 mg/dL (0.2-1.2); Calc. Creatinine Clearance 0 mL/min (70-130); Calcium 7.9 mg/dL (7.8-10.44); Carbon Dioxide 20 mmol/L (23-31); Chloride 103 mmol/L (98-107); Estimated GFR 17; Glucose 91 mg/dL (83-110); Lipase 40 U/L (8-78); Magnesium 2.1 mg/dL (1.6-2.6); Potassium 3.8 mmol/L (3.5-5.1); Protein, Total 6.7 g/dL (5.8-8.1); Sodium 133 mmol/L (136-145)
[2023-07-07 17:13] LABS: Troponin I 0.029 ng/mL (< 0.028)
[2023-07-07 19:24] LABS: Bacteria/HPF 4+ HPF (None Seen); Bilirubin 1+ (Negative); Blood, Urine Negative (Negative); CAUTI Indications for Culture Pelvic or flank pain; Clarity Turbid (Clear); Glucose, Urine (Dipstick) Normal (Negative); Ketone, Urine Trace mg/dL (Negative); Leukocyte 250 Leu/uL (Negative); Nitrite Negative (Negative); Protein, Urine (Dipstick) 30 mg/dL (Neg-Trace); RBC/HPF 0-3 HPF (0-3); Squamous Epithelial 0-3 HPF (0-3); Urobilinogen 3 mg/dL (Less than 2); WBC/HPF 0-3 HPF (0-3); pH, Urine 5.5 (5.0-9.0)
[2023-07-07 19:26] LABS: Urine Culture Reflex No No
[2023-07-07] MEDS ORDERED: cefTRIAXone (ROCEPHIN) 1 GM VIAL ONE (19:56)
[2023-07-07 20:49] LABS: Troponin I 0.029 ng/mL (< 0.028)
== END 2023-07-07 22:51 | disposition home health service (06) ==
LOC: ERS 15:40
DX: N30.00 Acute cystitis without hematuria (principal); N63.10 Unspecified lump in the right breast, unspecified quadrant; I25.10 Atherosclerotic heart disease of native coronary artery without angina pectoris; I48.91 Unspecified atrial fibrillation; E78.5 Hyperlipidemia, unspecified; I11.0 Hypertensive heart disease with heart failure; I50.9 Heart failure, unspecified; Z79.82 Long term (current) use of aspirin; Z79.899 Other long term (current) drug therapy; Z79.01 Long term (current) use of anticoagulants
CPT/HCPCS: 36415; 51701; 71045; 80053; 81001; 83690; 83735; 84484; 85025; 93005; 96365; 96372; 96375; J0696; J2405

== ENCOUNTER 2023-07-09 17:14 | Inpatient (IN) | payer MEDICARE ==
[2023-07-09] MEDS ORDERED: Ondansetron PF 4 MG/2 ML Vial ONE (18:16)
[2023-07-09] MEDS ORDERED: fentaNYL 50 mcg/mL 1 mL Vial ONE (18:22)
[2023-07-09] MEDS ORDERED: Morphine 4 MG/ML VIAL ONE (18:22)
[2023-07-09 18:30] LABS: #Basophils 0.1 thou/uL (0.0-0.2); #Eosinphils 0.1 thou/uL (0.0-0.7); #Monocytes 0.9 thou/uL (0.11-0.59); #Neutrophils 9.4 thou/uL (1.40-6.50); %Basophils 0.7 % (0.0-1.0); %Eosinophils 0.9 % (0.0-10.0); %Lymphocytes 17.9 % (21.0-51.0); %Monocytes 7.3 % (0.0-10.0); %Neutrophils 72.7 % (42.0-75.0); Hematocrit 25.7 % (36.0-47.0); Hemoglobin 7.9 g/dL (12.0-16.0); Mean Corpuscular HGB CONC 30.7 g/dL (32.0-36.0); Mean Corpuscular Hemoglobin 30.3 pg (27.0-31.0); Mean Corpuscular Volume 98.5 fl (78.0-98.0); Mean Platelet Volume 10.5 fL (7.4-10.4); Platelet Count 294 10x3/uL (130-400); RBC Distribution Width 14.6 % (11.5-14.5); Red Blood Cell (RBC) Count 2.61 mill/uL (4.20-5.40); White Blood Cell (WBC) Count 12.9 10x3/uL (4.8-10.8)
[2023-07-09 19:09] LABS: ALT (SGPT) 23 U/L (8-55); AST (SGOT) 51 U/L (5-34); Alkaline Phosphatase 195 U/L (40-110); Anion Gap 19 mmol/L (10-20); BUN (Urea Nitrogen) 38 mg/dL (9.8-20.1); Bilirubin, Total 0.4 mg/dL (0.2-1.2); CK (CPK) 239 U/L (29-168); Calc. Creatinine Clearance 0 mL/min (70-130); Calcium 8.2 mg/dL (7.8-10.44); Carbon Dioxide 16 mmol/L (23-31); Chloride 100 mmol/L (98-107); Estimated GFR 9; Globulin 4.3 g/dL (2.4-3.5); Glucose 97 mg/dL (83-110); Lipase 32 U/L (8-78); Magnesium 2.5 mg/dL (1.6-2.6); Potassium 4.4 mmol/L (3.5-5.1); Protein, Total 7.3 g/dL (5.8-8.1); Sodium 131 mmol/L (136-145)
[2023-07-09 19:12] LABS: Troponin I 0.058 ng/mL (< 0.028)
[2023-07-09 19:25] LABS: SARS-CoV-2 NAA Rapid Test Not Detected (NotDetected)
[2023-07-09] MEDS ORDERED: Aspirin 325 MG TAB ONE (20:22)
[2023-07-09 22:02] LABS: Lactic Acid 3.1 mmol/L (0.5-2.2)
[2023-07-09] MEDS ORDERED: Ondansetron ODT 4 MG TAB PO PRN (23:43)
[2023-07-09] MEDS ORDERED: Acetaminophen 650 MG Suppository PR PRN (23:43)
[2023-07-09] MEDS ORDERED: Acetaminophen 325 MG TAB PO PRN (23:43)
[2023-07-10 00:28] LABS: Troponin I 0.041 ng/mL (< 0.028)
[2023-07-10] MEDS ORDERED: DOBUTamine 500 mg/250 ml 250 ML IVPB SCH (01:45)
[2023-07-10 01:53] VITALS: BMI 27.0
[2023-07-10] MEDS ORDERED: Dextrose 50% Abboject 50 ML SYRINGE SLOW IVP PRN (02:14)
[2023-07-10] MEDS ORDERED: Dextrose 5% in Water 1,000 ML IV PRN (02:14)
[2023-07-10] MEDS ORDERED: Glucagon 1 MG/ML KIT IM PRN (02:14)
[2023-07-10] MEDS ORDERED: Albumin 25% 25 GM/100 ML BOT IVPB SCH ×2 (02:15→19:45)
[2023-07-10 02:31] LABS: Anion Gap 17 mmol/L (10-20); BUN (Urea Nitrogen) 39 mg/dL (9.8-20.1); Calc. Creatinine Clearance 9 mL/min (70-130); Calcium 8.1 mg/dL (7.8-10.44); Carbon Dioxide 19 mmol/L (23-31); Chloride 99 mmol/L (98-107); Estimated GFR 8; Glucose 93 mg/dL (83-110); Potassium 4.8 mmol/L (3.5-5.1); Sodium 130 mmol/L (136-145)
[2023-07-10 02:40] LABS: Troponin I 0.039 ng/mL (< 0.028)
[2023-07-10] MEDS ORDERED: Vancomycin HCl 1 GM in Sodium Chloride 0.9% 250 ML 300 ML IVPB SCH (03:45)
[2023-07-10] MEDS ORDERED: Vancomycin Dose by Levels Sliding Scale (Wt <71) FS SCH (04:00)
[2023-07-10] MEDS ORDERED: VANCOMYCIN 1.25 GM/250 ML BAG 1.25 GM in Premix Bag 1 BAG IVPB SCH (04:00)
[2023-07-10] MEDS ORDERED: Sodium Chloride 0.9% 1,000 ML IV SCH ×2 (04:15→10:00)
[2023-07-10] MEDS: metroNIDAZOLE 500 MG in Premix Bag 1 BAG IVPB SCH ×3 (04:25→20:50)
[2023-07-10 04:58] LABS: #Basophils 0.1 thou/uL (0.0-0.2); #Eosinphils 0.1 thou/uL (0.0-0.7); #Monocytes 1.1 thou/uL (0.11-0.59); #Neutrophils 9.7 thou/uL (1.40-6.50); %Basophils 0.5 % (0.0-1.0); %Eosinophils 0.9 % (0.0-10.0); %Lymphocytes 18.6 % (21.0-51.0); %Monocytes 7.9 % (0.0-10.0); %Neutrophils 71.7 % (42.0-75.0); Hematocrit 23.9 % (36.0-47.0); Hemoglobin 7.4 g/dL (12.0-16.0); Mean Corpuscular Hemoglobin 30.2 pg (27.0-31.0); Mean Corpuscular Volume 97.6 fl (78.0-98.0); Mean Platelet Volume 10.4 fL (7.4-10.4); Platelet Count 253 10x3/uL (130-400); RBC Distribution Width 14.6 % (11.5-14.5); Red Blood Cell (RBC) Count 2.45 mill/uL (4.20-5.40); White Blood Cell (WBC) Count 13.5 10x3/uL (4.8-10.8)
[2023-07-10] MEDS ORDERED: Cefepime 1 GM in Sodium Chloride 0.9% 100 ML IVPB SCH (05:00)
[2023-07-10 05:17] LABS: Anion Gap 24 mmol/L (10-20); BUN (Urea Nitrogen) 38 mg/dL (9.8-20.1); Calc. Creatinine Clearance 10 mL/min (70-130); Calcium 8.3 mg/dL (7.8-10.44); Carbon Dioxide 12 mmol/L (23-31); Chloride 99 mmol/L (98-107); Estimated GFR 8; Glucose 85 mg/dL (83-110); Potassium 4.8 mmol/L (3.5-5.1); Sodium 130 mmol/L (136-145)
[2023-07-10] MEDS ORDERED: Pantoprazole 40 MG VIAL IVP SCH (09:00)
[2023-07-10] MEDS: Albumin 25% 25 GM/100 ML BOT IVPB SCH ×3 (10:52→19:59)
[2023-07-10 12:14] VITALS: BP 98/56
[2023-07-10] MEDS ORDERED: Sodium Chloride 0.9% 500 ML IV SCH (12:45)
[2023-07-10] MEDS ORDERED: Lactated Ringer's 1,000 ML IV SCH ×2 (12:45→18:13)
[2023-07-10] MEDS ORDERED: Sodium Bicarbonate Tab 325 MG TAB PO SCH ×2 (12:45→21:00)
[2023-07-10] MEDS ORDERED: Meclizine HCl 25 MG TAB PO PRN (14:17)
[2023-07-10] MEDS: Ondansetron PF 4 MG/2 ML Vial IVP PRN ×2 (14:54→19:35)
[2023-07-10] MEDS ORDERED: Promethazine HCl 12.5 MG in Sodium Chloride 0.9% 50 ML IVPB PRN (17:09)
[2023-07-10] MEDS ORDERED: Sodium Bicarbonate 75 MEQ in Dextrose 5 %-0.45 % NaCl 1,000 ML IV SCH (18:45)
[2023-07-10] MEDS ORDERED: Furosemide 40 MG/4 ML VIAL SLOW IVP SCH (19:15)
[2023-07-10 20:38] LABS: #Monocytes 1.2 thou/uL (0.11-0.59); #Neutrophils 14.4 thou/uL (1.40-6.50); %Basophils 0.2 % (0.0-1.0); %Eosinophils 0.1 % (0.0-10.0); %Lymphocytes 10.7 % (21.0-51.0); %Monocytes 6.7 % (0.0-10.0); %Neutrophils 81.6 % (42.0-75.0); Hematocrit 22.4 % (36.0-47.0); Hemoglobin 6.5 g/dL (12.0-16.0); Mean Corpuscular Hemoglobin 30.5 pg (27.0-31.0); Mean Platelet Volume 10.7 fL (7.4-10.4); Platelet Count 288 10x3/uL (130-400); RBC Distribution Width 14.7 % (11.5-14.5); Red Blood Cell (RBC) Count 2.13 mill/uL (4.20-5.40); White Blood Cell (WBC) Count 17.6 10x3/uL (4.8-10.8)
[2023-07-10 20:41] LABS: Mean Corpuscular Volume 105.2 fl (78.0-98.0)
[2023-07-10] MEDS ORDERED: NOREPINEPHRINE 8 MG/250 ML-D5W 250 ML IVPB SCH (21:00)
[2023-07-10] MEDS ORDERED: Lactated Ringer's 500 ML IV SCH (21:00)
[2023-07-10 21:05] LABS: Lactic Acid 8.8 mmol/L (0.5-2.2); Troponin I 0.049 ng/mL (< 0.028)
[2023-07-10 21:06] LABS: ALT (SGPT) 23 U/L (8-55); AST (SGOT) 68 U/L (5-34); Albumin 5.9 g/dL (3.4-4.8); Alkaline Phosphatase 131 U/L (40-110); BUN (Urea Nitrogen) 36 mg/dL (9.8-20.1); Bilirubin, Total 0.7 mg/dL (0.2-1.2); Calc. Creatinine Clearance 9 mL/min (70-130); Calcium 7.8 mg/dL (7.8-10.44); Carbon Dioxide Less than 8 mmol/L (23-31); Chloride 99 mmol/L (98-107); Estimated GFR 8; Globulin 3.3 g/dL (2.4-3.5); Glucose 46 mg/dL (83-110); Lipase 20 U/L (8-78); Potassium 4.8 mmol/L (3.5-5.1); Protein, Total 9.2 g/dL (5.8-8.1); Sodium 129 mmol/L (136-145)
[2023-07-10] MEDS ORDERED: NOREPINEPHRINE 8 MG/250 ML-D5W 250 ML ONE (21:16)
[2023-07-10] MEDS ORDERED: EPINEPHrine 1 MG/10 ML Abboject SYRINGE ONE ×2 (21:28→21:54)
[2023-07-10] MEDS ORDERED: Amiodarone 150 MG/3 ML VIAL ONE (21:28)
[2023-07-10] MEDS ORDERED: Sodium Bicarb 50 MEQ/50 ML Abboject 8.4% SYRINGE ONE (21:28)
[2023-07-10] MEDS ORDERED: Calcium Chloride 1 GM/10 ML Abboject SYRINGE ONE (21:28)
[2023-07-10 21:55] LABS: #Basophils 0.1 thou/uL (0.0-0.2); #Monocytes 1.2 thou/uL (0.11-0.59); #Neutrophils 14.3 thou/uL (1.40-6.50); %Basophils 0.2 % (0.0-1.0); %Lymphocytes 20.9 % (21.0-51.0); %Neutrophils 69.3 % (42.0-75.0); Hematocrit 23.1 % (36.0-47.0); Hemoglobin 6.7 g/dL (12.0-16.0); Mean Corpuscular Hemoglobin 30.7 pg (27.0-31.0); Platelet Count 254 10x3/uL (130-400); Red Blood Cell (RBC) Count 2.18 mill/uL (4.20-5.40); White Blood Cell (WBC) Count 20.6 10x3/uL (4.8-10.8)
[2023-07-10] MEDS ORDERED: Sodium Bicarb 50 MEQ/50 ML VIAL ONE (21:55)
[2023-07-10] MEDS ORDERED: Amiodarone 450 MG, Admixture Fee 1 EACH in Dextrose 5% in Water 250 ML IVPB SCH (22:00)
[2023-07-10] MEDS ORDERED: Vasopressin 20 UNITS, Admixture Fee 1 EACH in Sodium Chloride 0.9% 50 ML IV SCH (22:00)
[2023-07-10] MEDS ORDERED: methylPREDNISolone Sod Succ/PF 125 MG/2 ML VIAL IVP SCH (22:00)
[2023-07-10] MEDS ORDERED: EPINEPHrine 1 MG/ML AMP ONE (22:01)
[2023-07-10] MEDS ORDERED: Ventilator Sedation Protocol 1 EACH FS ONE (22:15)
[2023-07-10] MEDS ORDERED: Vasopressin 20 UNITS in Sodium Chloride 0.9% 50 ML IV SCH (22:15)
[2023-07-10] MEDS ORDERED: Propofol 1,000 MG/100 ML VIAL IV ONE (22:18)
[2023-07-10 22:27] LABS: ALT (SGPT) 31 U/L (8-55); AST (SGOT) 102 U/L (5-34); Albumin 3.8 g/dL (3.4-4.8); Alkaline Phosphatase 137 U/L (40-110); Anion Gap 27 mmol/L (10-20); BUN (Urea Nitrogen) 39 mg/dL (9.8-20.1); Bilirubin, Total 0.7 mg/dL (0.2-1.2); Calc. Creatinine Clearance 9 mL/min (70-130); Calcium 9.6 mg/dL (7.8-10.44); Carbon Dioxide 8 mmol/L (23-31); Chloride 101 mmol/L (98-107); Estimated GFR 8; Globulin 2.8 g/dL (2.4-3.5); Glucose 145 mg/dL (83-110); Potassium 4.8 mmol/L (3.5-5.1); Protein, Total 6.6 g/dL (5.8-8.1); Sodium 131 mmol/L (136-145)
[2023-07-10 22:30] LABS: CO2 Tension 43.2 mmHg (35.0-45.0); Calcium, Ionized (arterial) 1.07 mmol/L (1.12-1.30); Carboxyhemoglobin (COHb) 0.2 gm% (0.0-3.0); Hematocrit-ABG 23 % (36.0-47.0); Hemoglobin (Hb) 7.9 g/dL (12.0-16.0); Potassium - ABG Lab 4.13 mmol/L (3.70-5.30)
[2023-07-10] MEDS ORDERED: Fentanyl CADD 100 ML IV SCH (22:30)
[2023-07-10] MEDS ORDERED: Morphine 2 MG/ML VIAL SLOW IVP PRN (22:30)
[2023-07-10] MEDS ORDERED: Lorazepam 2 MG/ML VIAL SLOW IVP PRN (22:30)
[2023-07-10] MEDS ORDERED: Propofol 1,000 MG/100 ML VIAL IV PRN (22:30)
[2023-07-10] MEDS ORDERED: DISCONTINUE PREVIOUS NARCOTIC PAIN MEDICATIONS AND BENZODIAZEPINES FS SCH (22:30)
[2023-07-10] MEDS ORDERED: Propofol BOLUS 1,000 MG/100 ML VIAL IV PRN (22:30)
[2023-07-10] MEDS ORDERED: Fentanyl BOLUS 250 ML IVPB PRN (22:30)
[2023-07-10 22:37] LABS: Actual Bicarbonate (HCO3a) 14.1 mEq/L (22-28); O2 Tension (PaO2), arterial 47.5 mmHg (> 60.0); Puncture Site FEM; pH, Arterial 7.133 (7.35-7.45)
[2023-07-11] MEDS ORDERED: Morphine 2 MG/ML VIAL SLOW IVP SCH (00:01)
[2023-07-11 01:10] VITALS: TEMP 96
== END 2023-07-11 04:17 | disposition expired | DRG 871 ==
LOC: ERS 17:14 → IMCU/EMU 23:12 → CCU 07-10 21:24
PROVIDERS: ADMIT Student in an Organized Health Care Education/Training Program; ATTEND Family Medicine
PROC: 3E03329 Introduction of Other Anti-infective into Peripheral Vein, Percutaneous Approach (ICD-10-PCS; principal; 2023-07-09)
PROC: 4A033R1 Measurement of Arterial Saturation, Peripheral, Percutaneous Approach (ICD-10-PCS; 2023-07-10)
PROC: 30233N1 Transfusion of Nonautologous Red Blood Cells into Peripheral Vein, Percutaneous Approach (ICD-10-PCS; 2023-07-10)
PROC: 3E033XZ Introduction of Vasopressor into Peripheral Vein, Percutaneous Approach (ICD-10-PCS; 2023-07-10)
PROC: 0BH17EZ Insertion of Endotracheal Airway into Trachea, Via Natural or Artificial Opening (ICD-10-PCS; 2023-07-10)
PROC: 5A1935Z Respiratory Ventilation, Less than 24 Consecutive Hours (ICD-10-PCS; 2023-07-10)
PROC: 04HY32Z Insertion of Monitoring Device into Lower Artery, Percutaneous Approach (ICD-10-PCS; 2023-07-10)
PROC: 4A133B1 Monitoring of Arterial Pressure, Peripheral, Percutaneous Approach (ICD-10-PCS; 2023-07-10)
PROC: 4A133J1 Monitoring of Arterial Pulse, Peripheral, Percutaneous Approach (ICD-10-PCS; 2023-07-10)
PROC: 06JY3ZZ Inspection of Lower Vein, Percutaneous Approach (ICD-10-PCS; 2023-07-10)
PROC: 30233J1 Transfusion of Nonautologous Serum Albumin into Peripheral Vein, Percutaneous Approach (ICD-10-PCS; 2023-07-10)
PROC: 5A12012 Performance of Cardiac Output, Single, Manual (ICD-10-PCS; 2023-07-11)
DX: A41.9 Sepsis, unspecified organism (principal); N17.0 Acute kidney failure with tubular necrosis; R65.21 Severe sepsis with septic shock; E87.20 Acidosis, unspecified; I50.32 Chronic diastolic (congestive) heart failure; E87.1 Hypo-osmolality and hyponatremia; I13.0 Hypertensive heart and chronic kidney disease with heart failure and stage 1 through stage 4 chronic kidney disease, or unspecified chronic kidney disease; R19.7 Diarrhea, unspecified; Z66 Do not resuscitate; Z20.822 Contact with and (suspected) exposure to COVID-19; I48.0 Paroxysmal atrial fibrillation; N18.30 Chronic kidney disease, stage 3 unspecified; D63.1 Anemia in chronic kidney disease; E16.2 Hypoglycemia, unspecified; K43.9 Ventral hernia without obstruction or gangrene; I49.01 Ventricular fibrillation; I46.2 Cardiac arrest due to underlying cardiac condition; I25.10 Atherosclerotic heart disease of native coronary artery without angina pectoris; E86.0 Dehydration; E03.9 Hypothyroidism, unspecified; Z79.01 Long term (current) use of anticoagulants; Z79.899 Other long term (current) drug therapy; Z79.890 Hormone replacement therapy; Z79.82 Long term (current) use of aspirin; Z90.49 Acquired absence of other specified parts of digestive tract; Z95.0 Presence of cardiac pacemaker; Z98.84 Bariatric surgery status; Z90.710 Acquired absence of both cervix and uterus; Z98.49 Cataract extraction status, unspecified eye
CPT/HCPCS: 36415; 36416; 36430; 71045; 74176; 76770; 80048; 80053; 82533; 82550; 82805; 83605; 83690; 83735; 83880; 84484; 85025; 86850; 86900; 86901; 87040; 93005; 94002; 94760; 96361; 96374; 96375; C9113; J0171; J0282; J0692; J1940; J2270; J2272; J2405; J2550; J2704; J3010; J3370; J3490; J7030; J7042; J7050; J7120; P9016; P9047